=== PATIENT | male | born 1950 | race African-American/Black ===

== ENCOUNTER 2017-09-28 17:19 | Emergency (ER) | payer MEDICARE, OTHER ==
--- NOTE | 2017-09-28 19:24 | RAD ---
HISTORY: Right hip and leg pain COMPARISONS: None VIEWS: 3, Frontal view of the pelvis with frontal and frog-leg views of the right hip FINDINGS: BONE DENSITY: Normal. BONES: There is no displaced fracture. JOINTS: There is advanced osteoarthritis of the hips bilaterally ALIGNMENT: There is no dislocation. SOFT TISSUES: Unremarkable. OTHER FINDINGS: None. IMPRESSION: OSTEOARTHRITIS. NO ACUTE OSSEOUS INJURY. IF SYMPTOMS PERSIST, RECOMMEND REPEAT IMAGING.
[2017-09-28 20:31] LABS: Hematocrit 39 % (42-52); Hemoglobin 13.1 g/dl (14.0-18.0); Mean Corpuscular HGB Conc 34 g/dl (31-36); Mean Corpuscular Hemoglobin 30 pg (27-31); Mean Corpuscular Volume 89 fL (80-94); Mean Platelet Volume 9 um3 (7.4-10.4); Red Blood Count 4.33 10^6/ul (4.0-5.4); Red Cell Distribution Width 15 % (10.5-15); White Blood Count 8.5 10^3/ul (3.5-10.8)
[2017-09-28 20:45] LABS: Albumin 4.1 g/dL (3.2-5.2); BUN/Creatinine Ratio 15.7 (8-20); C Reactive Protein 13.79 mg/L (< 5.00); Calcium 10.1 mg/dL (8.6-10.3); EGFR Non-African American 50.5 (>60); Magnesium 2.1 mg/dL (1.9-2.7); Potassium 4.4 mmol/L (3.5-5.0); Total Bilirubin 0.5 mg/dL (0.2-1.0); Total Protein 8.1 g/dL (6.4-8.9)
[2017-09-28 20:50] LABS: Urine Bacteria Absent (Absent); Urine Bilirubin Negative (Negative); Urine Glucose Negative (Negative); Urine Nitrite Negative (Negative)
[2017-09-28 21:22] LABS: TSH (Thyroid Stimulating Horm) 2.08 mcIU/mL (0.34-5.60)
--- NOTE | 2017-09-28 21:53 | ED ---
Tamanna Ann Thomas, scribed for José Miguel Charles MD on 09/28/17 at 1947 . Complex/Multi-Sys Presentation - HPI Summary HPI Summary: The pt is a 67 y/o M presenting to the ED c/o acute on chronic right hip pain. The pain is constant. The pain is aggravated by movement and is alleviated by nothing. PMHx includes hip dislocation in the 1960s and chronic right hip pain since then. At baseline, he becomes short of breath upon walking. Pt denies fevers, chills, abd pain, diarrhea, constipation, and bloody stool. The patient is alert, awake, and he is mildly confused. He is accompanied two family members , who in private request that he be given a mental health exam. They believe the patient is unsafe to return to live alone at home due to both physical safety and emotional reasons. - History Of Current Complaint Chief Complaint: EDExtremityLower Time Seen by Provider: 09/28/17 19:11 Hx Obtained From: Patient, Family/Liaison Engineer - two family members present Onset/Duration: Lasting Weeks - acute on chronic right hip pain, Still Present Timing: Constant Severity Currently: Moderate Location: Pain At: - Right hip Aggravating Factor(s): Movement. Alleviating Factor(s): None. Associated Signs And Symptoms: Positive: Other - R hip pain, SOB, confusion; NEGATIVE: fever, chills, abd pain, constipation, diarrhea - Allergies/Home Medications Allergies/Adverse Reactions: Allergies Allergy/AdvReac Type Severity Reaction Status Date / Time No Known Allergies Allergy Verified 02/28/13 15:08 PMH/Surg Hx/FS Hx/Imm Hx Previously Healthy: No Endocrine/Hematology History: Reports: Hx Diabetes - pre-diabetic Cardiovascular History: Reports: Hx Angina - 1993, Hx Coronary Artery Disease, Hx Hypercholesterolemia, Hx Hypertension, Hx Myocardial Infarction - 1993 Denies: Hx Valvular Heart Disease Respiratory History: Denies: Hx Asthma, Hx Chronic Obstructive Pulmonary Disease (COPD) Infectious Disease History: No Infectious Disease History: Denies: Traveled Outside the [place] in Last 30 Days - Family History Known Family History: Positive: Other - When asked FHx, patient responds "nothing" - Social History Alcohol Use: Weekly Alcohol Amount: x1 month Hx Substance Use: No Substance Use Type: Reports: None Hx Tobacco Use: Yes Smoking Status (MU): Heavy Every Day Tobacco Smoker Review of Systems Negative: Fever, Chills Positive: Shortness Of Breath Negative: Abdominal Pain, Diarrhea, Other - NEGATIVE: constipation Positive: Other - R hip pain Neurological: Other - Confusion (mild) All Other Systems Reviewed And Are Negative: Yes Physical Exam - Summary Physical Exam Summary: General: well-appearing, no pain distress Skin: warm, color reflects adequate perfusion, dry Head: normal Eyes: EOMI, JOHAN ENT: normal Neck: supple, nontender Respiratory: CTA, breath sounds present Cardiovascular: RRR Abdomen: soft, nont ac Bowel: present Musculoskeletal: The right hip is externally rotate. There is good ROM in the left leg, but the right leg has decreased ROM to the knee and hip. Neurological: sensory/motor intact. He is awake, alert, and mildly confused. Psychological: He is depressed. Vital Signs On Initial Exam: Initial Vitals Temp Pulse Resp BP Pulse Ox 97.7 F 102 20 189/124 100 09/28/17 17:24 09/28/17 17:24 09/28/17 17:24 09/28/17 17:24 09/28/17 17:24 Diagnostics - Vital Signs Vital Signs Temp Pulse Resp BP Pulse Ox 09/28/17 17:24 97.7 F 102 20 189/124 100 - Laboratory Lab Results: Lab Results 09/28/17 09/28/17 09/28/17 Range/Units 20:20 20:20 20:20 WBC 8.5 (3.5-10.8) 10^3/ul RBC 4.33 (4.0-5.4) 10^6/ul Hgb 13.1 L (14.0-18.0) g/dl Hct 39 L (42-52) % MCV 89 (80-94) fL MCH 30 (27-31) pg MCHC 34 (31-36) g/dl RDW 15 (10.5-15) % Plt Count 241 (150-450) 10^3/ul MPV 9 (7.4-10.4) um3 Neut % (Auto) 64.6 (38-83) % Lymph % (Auto) 26.0 (25-47) % Hopkins % (Auto) 6.9 (1-9) % Eos % (Auto) 1.4 (0-6) % Baso % (Auto) 1.1 (0-2) % Absolute Neuts (auto) 5.5 (1.5-7.7) 10^3/ul Absolute Lymphs (auto) 2.2 (1.0-4.8) 10^3/ul Absolute Monos (auto) 0.6 (0-0.8) 10^3/ul Absolute Eos (auto) 0.1 (0-0.6) 10^3/ul Absolute Basos (auto) 0.1 (0-0.2) 10^3/ul Absolute Nucleated RBC 0 10^3/ul Nucleated RBC % 0 INR (Anticoag Therapy) 0.98 (0.89-1.11) APTT 26.5 (26.0-36.3) seconds Sodium 133 (133-145) mmol/L Potassium 4.4 (3.5-5.0) mmol/L Chloride 102 (101-111) mmol/L Carbon Dioxide 26 (22-32) mmol/L Anion Gap 5 (2-11) mmol/L BUN 22 (6-24) mg/dL Creatinine 1.40 H (0.67-1.17) mg/dL Est GFR ( Amer) 65.0 (>60) Est GFR (Non-Af Amer) 50.5 (>60) BUN/Creatinine Ratio 15.7 (8-20) Glucose 111 H (70-100) mg/dL Calcium 10.1 (8.6-10.3) mg/dL Magnesium 2.1 (1.9-2.7) mg/dL Total Bilirubin 0.50 (0.2-1.0) mg/dL AST 14 (13-39) U/L ALT 6 L (7-52) U/L Alkaline Phosphatase 107 H (34-104) U/L C-Reactive Protein 13.79 H (< 5.00) mg/L Total Protein 8.1 (6.4-8.9) g/dL Albumin 4.1 (3.2-5.2) g/dL Globulin 4.0 (2-4) g/dL Albumin/Globulin Ratio 1.0 (1-3) Lipase 18 (11.0-82.0) U/L TSH 2.08 (0.34-5.60) mcIU/mL Urine Color Urine Appearance Urine pH (5-9) Ur Specific [place] (1.010-1.030) Urine Protein (Negative) Urine Ketones (Negative) Urine Blood (Negative) Urine Nitrate (Negative) Urine Bilirubin (Negative) Urine Urobilinogen (Negative) Ur Leukocyte Esterase (Negative) Urine WBC (Auto) (Absent) Urine RBC (Auto) (Absent) Ur Squamous Epith Cells (Absent) Urine Bacteria (Absent) Hyaline Casts (Absent) Urine Glucose (Negative) Urine Ascorbic Acid (Negative) 09/28/17 Range/Units 20:37 WBC (3.5-10.8) 10^3/ul RBC (4.0-5.4) 10^6/ul Hgb (14.0-18.0) g/dl Hct (42-52) % MCV (80-94) fL MCH (27-31) pg MCHC (31-36) g/dl RDW (10.5-15) % Plt Count (150-450) 10^3/ul MPV (7.4-10.4) um3 Neut % (Auto) (38-83) % Lymph % (Auto) (25-47) % Hopkins % (Auto) (1-9) % Eos % (Auto) (0-6) % Baso % (Auto) (0-2) % Absolute Neuts (auto) (1.5-7.7) 10^3/ul Absolute Lymphs (auto) (1.0-4.8) 10^3/ul Absolute Monos (auto) (0-0.8) 10^3/ul Absolute Eos (auto) (0-0.6) 10^3/ul Absolute Basos (auto) (0-0.2) 10^3/ul Absolute Nucleated RBC 10^3/ul Nucleated RBC % INR (Anticoag Therapy) (0.89-1.11) APTT (26.0-36.3) seconds Sodium (133-145) mmol/L Potassium (3.5-5.0) mmol/L Chloride (101-111) mmol/L Carbon Dioxide (22-32) mmol/L Anion Gap (2-11) mmol/L BUN (6-24) mg/dL Creatinine (0.67-1.17) mg/dL Est GFR ( Amer) (>60) Est GFR (Non-Af Amer) (>60) BUN/Creatinine Ratio (8-20) Glucose (70-100) mg/dL Calcium (8.6-10.3) mg/dL Magnesium (1.9-2.7) mg/dL Total Bilirubin (0.2-1.0) mg/dL AST (13-39) U/L ALT (7-52) U/L Alkaline Phosphatase (34-104) U/L C-Reactive Protein (< 5.00) mg/L Total Protein (6.4-8.9) g/dL Albumin (3.2-5.2) g/dL Globulin (2-4) g/dL Albumin/Globulin Ratio (1-3) Lipase (11.0-82.0) U/L TSH (0.34-5.60) mcIU/mL Urine Color Yellow Urine Appearance Clear Urine pH 5.0 (5-9) Ur Specific [place] 1.014 (1.010-1.030) Urine Protein Negative (Negative) Urine Ketones Negative (Negative) Urine Blood Negative (Negative) Urine Nitrate Negative (Negative) Urine Bilirubin Negative (Negative) Urine Urobilinogen Negative (Negative) Ur Leukocyte Esterase Trace H (Negative) Urine WBC (Auto) Trace(0-5/hpf) (Absent) Urine RBC (Auto) Trace(0-2/hpf) (Absent) Ur Squamous Epith Cells Present H (Absent) Urine Bacteria Absent (Absent) Hyaline Casts Present H (Absent) Urine Glucose Negative (Negative) Urine Ascorbic Acid * H (Negative) Result Diagrams: 09/28/17 20:20 09/28/17 20:20 Lab Statement: Any lab studies that have been ordered have been reviewed, and results considered in the medical decision making process. - Radiology Hip XR Xray Interpretation: No Acute Changes - OSTEOARTHRITIS. NO ACUTE OSSEOUS INJURY. IF SYMPTOMS PERSIST, RECOMMEND REPEAT IMAGING. ED physician has reviewed this report and agrees. Radiology Interpretation Completed By: Radiologist Complex Multi-Symp Course/Dx Course Of Treatment: Medications reviewed. BP noted and advised to follow up with PCP. PATIENT ALERT AND ORIENTED IN ED. HE HAS MILD MEMORY CONFUSION BUT, HE APPEARS ABLE TO MAKE HIS OWN DECISIONS. HE DECLINES ADMISSION OR MHE. HE EXPRESSES DESIRE FOR HELP WITH HOUSING, MEDICAL VISITS AND DEPRESSION. DENIES SI/HI. DAUGHTER WAS IN THE ROOM DURING THE VISIT. SOCIAL WORK CONSULTATION ORDERED. - Diagnoses Provider Diagnoses: Hip arthritis, Hypertension, Depression Discharge - Discharge Plan Condition: Stable Disposition: HOME Patient Education Materials: Osteoarthritis (ED), Depression (ED), Hip Pain (ED ), Hypertension (ED) Referrals: [facility] [place] [facility] [Outside] Additional Instructions: FOLLOW UP WITH YOUR PRIMARY CARE DOCTOR. A SOCIAL WORK CONSULTATION HAS BEEN REQUESTED TO HELP YOU FINDING HOUSING, MEDICAL AND MENTAL HEALTH RESOURCES. RETURN TO THE EMERGENCY DEPARTMENT FOR ANY WORSENING OF YOUR CONDITION; WEAKNESS , CONFUSION, DEPRESSION OR QUESTIONS OR CONCERNS. The documentation as recorded by the Tamanna farrar Thomas accurately reflects the service I personally performed and the decisions made by me, José Miguel Charles MD.
[2017-09-28 22:29] VITALS: BP 136/97
== END 2017-09-28 22:07 | disposition home or self-care (01) ==
LOC: ED 17:19
DX: M16.11 Unilateral primary osteoarthritis, right hip (principal); F32.9 Major depressive disorder, single episode, unspecified; R06.02 Shortness of breath; R41.0 Disorientation, unspecified; R73.03 Prediabetes; I25.119 Atherosclerotic heart disease of native coronary artery with unspecified angina pectoris; I10 Essential (primary) hypertension; E78.00 Pure hypercholesterolemia, unspecified; I25.2 Old myocardial infarction; F17.210 Nicotine dependence, cigarettes, uncomplicated
CPT/HCPCS: 36415; 80053; 81003; 81015; 83690; 83735; 84443; 85025; 85610; 85730; 86140; 87086; 99283

== ENCOUNTER 2017-12-07 18:41 | Inpatient (IN) | payer MEDICARE ==
[2017-12-07] MEDS ORDERED: NS 0.9% 1000 ML* 1,000 ML IV ONE (19:30)
[2017-12-07 20:06] LABS: ABS Basophils 0.1 10^3/ul (0-0.2); ABS Eosinophils 0.1 10^3/ul (0-0.6); ABS Lymphocytes 2.1 10^3/ul (1.0-4.8); ABS Monocytes 0.5 10^3/ul (0-0.8); ABS Nucleated RBC 0 10^3/ul; Eosinophil % 1.5 % (0-6); Hematocrit 38 % (42-52); Lymphocyte % 26.7 % (25-47); Mean Corpuscular HGB Conc 34 g/dl (31-36); Mean Corpuscular Hemoglobin 30 pg (27-31); Mean Corpuscular Volume 88 fL (80-94); Mean Platelet Volume 9 um3 (7.4-10.4); Nucleated Red Blood Cells % 0.1; Platelet Count 249 10^3/ul (150-450); Red Blood Count 4.32 10^6/ul (4.0-5.4); Red Cell Distribution Width 15 % (10.5-15); White Blood Count 7.9 10^3/ul (3.5-10.8)
--- NOTE | 2017-12-07 20:19 | RAD ---
HISTORY: Weakness COMPARISONS: None VIEWS: 1: frontal portable view of the chest at 8:06 PM FINDINGS: LINES AND TUBES: None. CARDIOMEDIASTINAL SILHOUETTE: The aorta is tortuous. The cardiomediastinal silhouette is otherwise normal for portable technique. PLEURA: The costophrenic angles are sharp. No pleural abnormalities are noted. LUNG PARENCHYMA: The lungs are clear. ABDOMEN: The upper abdomen is clear. There is no subphrenic gas. BONES AND SOFT TISSUES: No bone or soft tissue abnormalities are noted. IMPRESSION: NO ACTIVE CARDIOPULMONARY DISEASE.
[2017-12-07 20:21] LABS: EGFR Non-African American 53.2 (>60)
[2017-12-07 20:35] LABS: Urine Appearance Clear; Urine Blood Negative (Negative); Urine Color Yellow; Urine Ketones Negative (Negative); Urine Protein Negative (Negative); Urine Specific Gravity 1.013 (1.010-1.030); Urine Urobilinogen Negative (Negative)
--- NOTE | 2017-12-07 20:39 | RAD ---
HISTORY: Right hip pain, right leg weakness COMPARISONS: None TECHNIQUE: Multiple contiguous axial CT images are obtained of the pelvis, with coronal and sagittal multiplanar reconstructions, without intravenous contrast administration. FINDINGS: BONE DENSITY: There is diffuse osteopenia. BONES: There is no displaced fracture. JOINTS: There is advanced osteoarthritis of the hips bilaterally. MUSCULATURE: Unremarkable ALIGNMENT: There is no dislocation. SOFT TISSUES: Unremarkable. OTHER FINDINGS: None. IMPRESSION: 1. OSTEOPENIA. 2. OSTEOARTHRITIS. 3. NO ACUTE OSSEOUS INJURY. THE DEGREE OF OSTEOPENIA MAY MAKE A NONDISPLACED FRACTURE RADIOGRAPH FOR OCCULT. IF SYMPTOMS PERSIST, RECOMMEND REPEAT IMAGING.
[2017-12-07] MEDS ORDERED: traMADol TAB* 50 MG PO ONE (20:41)
--- NOTE | 2017-12-07 20:41 | RAD ---
HISTORY: Right hip pain, right leg weakness COMPARISONS: None TECHNIQUE: Multiple contiguous axial CT scans were obtained of the lumbar spine without intravenous contrast, with coronal and sagittal multiplanar reformations. FINDINGS: SPINAL CANAL: Evaluation of the central canal is limited on CT technique; however, there is no obvious canalicular mass or epidural hemorrhage. ALIGNMENT: The alignment is normal. VERTEBRAL BODIES: The vertebral bodies are preserved in height. There is diffuse osteopenia.. There is mild anterolateral marginal osteophyte formation. JOINTS: There is facet osteoarthritic change along the lower lumbar spine. MUSCULATURE: Unremarkable INTERVERTEBRAL DISCS: There is diffuse loss of intervertebral disc height throughout the spine. AXIAL IMAGES: On axial images, there is no osseous neural foraminal area or central canal stenosis. There is mild disc bulging at L4-L5 and L5-S1. SOFT TISSUES: The visualized soft tissues of the abdomen are unremarkable. OTHER: None IMPRESSION: MILD DEGENERATIVE DISC DISEASE AND OSTEOPOROSIS. OSTEOPENIA. NO SIGNIFICANT OSSEOUS NEURAL FORAMINAL NARROWING OR CENTRAL CANAL STENOSIS.
[2017-12-08] MEDS ORDERED: oxyCODONE TAB* 5 MG TAB PO PRN (04:10)
[2017-12-08] MEDS ORDERED: CMCS:Melatonin (NF) 3 MG TAB PO PRN (04:10)
[2017-12-08] MEDS ORDERED: Acetaminophen TAB* 325 MG PO PRN (04:10)
[2017-12-08] MEDS ORDERED: hydrALAZINE IV* 20 MG/ML VIAL IV SLOW PU ONE (05:02)
[2017-12-08] MEDS: Heparin VIAL(*) 5000 UNITS/ML VIAL (FIVE THOUSAND) SUBCUT SCH ×2 (05:53→12:26)
[2017-12-08] MEDS ORDERED: Omeprazole CAP* 20 MG PO SCH (06:00)
[2017-12-08 06:51] LABS: ABS Basophils 0.1 10^3/ul (0-0.2); ABS Eosinophils 0.2 10^3/ul (0-0.6); ABS Lymphocytes 2.3 10^3/ul (1.0-4.8); ABS Monocytes 0.7 10^3/ul (0-0.8); ABS Neutrophils 4.6 10^3/ul (1.5-7.7); ABS Nucleated RBC 0 10^3/ul; Eosinophil % 2.4 % (0-6); Hematocrit 36 % (42-52); Lymphocyte % 29.3 % (25-47); Mean Corpuscular HGB Conc 34 g/dl (31-36); Mean Corpuscular Hemoglobin 30 pg (27-31); Mean Corpuscular Volume 87 fL (80-94); Mean Platelet Volume 9 um3 (7.4-10.4); Nucleated Red Blood Cells % 0.2; Platelet Count 234 10^3/ul (150-450); Red Blood Count 4.06 10^6/ul (4.0-5.4); Red Cell Distribution Width 14 % (10.5-15); White Blood Count 7.9 10^3/ul (3.5-10.8)
[2017-12-08 07:01] LABS: INR 0.98 (0.77-1.02)
[2017-12-08 07:06] LABS: EGFR Non-African American 73.7 (>60)
[2017-12-08] MEDS ORDERED: Docusate CAP* 100 MG PO SCH (09:00)
[2017-12-08] MEDS: traMADol TAB* 50 MG PO PRN ×2 (12:25→19:48)
--- NOTE | 2017-12-08 14:14 | PN ---
Subjective Date of Service: 12/08/17 Interval History: C/O pain R hip. He states he walked to the chair. Objective Active Medications: Acetaminophen (Tylenol Tab*) 650 mg PO Q6H PRN PRN Reason: FEVER/PAIN Acetaminophen (Tylenol Tab*) 650 mg PO TID EDUARDO Enoxaparin Sodium (Lovenox(*)) 40 mg SUBCUT Q24H EDUARDO Thiamine HCl (Vitamin B-1 Tab*) 100 mg PO DAILY EDUARDO Tramadol HCl (Ultram*) 50 mg PO Q6H PRN PRN Reason: PAIN Last Admin: 12/08/17 12:25 Dose: 50 mg Vital Signs - 8 hr 12/08/17 12/08/17 12/08/17 07:34 08:00 09:11 Temperature 97.5 F Pulse Rate 103 Respiratory 18 18 16 Rate Blood Pressure 150/73 (mmHg) O2 Sat by Pulse 97 Oximetry 12/08/17 12:25 Temperature Pulse Rate Respiratory 16 Rate Blood Pressure (mmHg) O2 Sat by Pulse Oximetry Oxygen Devices in Use Now: None Appearance: Alert, partly up in bed. He has a heat pack on his R groin. Neutral affect. Eyes: No Scleral Icterus Respiratory: Symmetrical Chest Expansion and Respiratory Effort, Clear to Auscultation, Clear to Percussion Skin: No Rash or Ulcers, No Nodules or Sclerosis, - Neurological: NL Sensation - He can state his age, his full name, name of his daughter. He cannot name the present year, [facility] or the pname of the president. Result Diagrams: 12/08/17 06:40 12/08/17 06:40 Assess/Plan/Problems-Billing Assessment: - Patient Problems (1) Dementia Current Visit: Yes Status: Acute Code(s): F03.90 - UNSPECIFIED DEMENTIA WITHOUT BEHAVIORAL DISTURBANCE SNOMED Code(s): 74903135 Comment: I suspect a significant contribution to his poor memory and cognition is his lifelong alcoholism, which only ended about a year ago. I spoke on the phone with his mary jane Sim who is now living with him. She states he thinks she is his sister (who many years ago) and gets other relatives confused. Start thiamine. Add-on B12, syphilis IgG. (2) Osteoarthritis of hips, bilateral Current Visit: Yes Status: Acute Code(s): M16.0 - BILATERAL PRIMARY OSTEOARTHRITIS OF HIP SNOMED Code(s): 798673375 Comment: Start APAP 650 mg tid. Pt refused PT, PT will try again.
[2017-12-08] MEDS: Enoxaparin(*) 40 MG/0.4 ML SYR SUBCUT SCH (14:58)
[2017-12-08] MEDS: Thiamine TAB* 100 MG TAB PO SCH (15:23)
[2017-12-08] MEDS: Acetaminophen TAB* 325 MG PO SCH ×2 (15:24→19:48)
[2017-12-08] MEDS: oxyCODONE TAB* 5 MG TAB PO PRN ×2 (18:04→23:57)
[2017-12-08] MEDS ORDERED: hydrALAZINE IV* 20 MG/ML VIAL ONE (23:52)
[2017-12-08] MEDS: hydrALAZINE IV* 20 MG/ML VIAL IV SLOW PU PRN (23:58)
[2017-12-09] MEDS: traMADol TAB* 50 MG PO PRN ×2 (02:44→21:35)
[2017-12-09] MEDS: oxyCODONE TAB* 5 MG TAB PO PRN ×4 (04:06→17:31)
[2017-12-09] MEDS: Acetaminophen TAB* 325 MG PO SCH ×3 (09:33→21:35)
[2017-12-09] MEDS: Thiamine TAB* 100 MG TAB PO SCH (09:34)
[2017-12-09] MEDS: Enoxaparin(*) 40 MG/0.4 ML SYR SUBCUT SCH (13:33)
--- NOTE | 2017-12-09 17:06 | PN ---
Progress Note - Progress Note Date of Service: 12/09/17 Note: New dx: vitamin B12 deficiency. B12 level 112 12/09/17. B12 1000 mcg IM weekly for 6 weeks, then monthly.
[2017-12-09] MEDS ORDERED: Cyanocobalamin INJ * 1,000 MCG/ML VIAL 1 ML VIAL IM SCH (18:00)
[2017-12-09] MEDS: oxyCODONE SR TAB(*) 10 MG TAB.SR PO SCH (21:35)
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
[2017-12-10] MEDS: oxyCODONE TAB* 5 MG TAB PO PRN ×2 (07:54→14:23)
[2017-12-10] MEDS: Acetaminophen TAB* 325 MG PO SCH ×3 (08:52→20:36)
[2017-12-10] MEDS: oxyCODONE SR TAB(*) 10 MG TAB.SR PO SCH ×2 (08:52→20:35)
[2017-12-10] MEDS: hydrALAZINE IV* 20 MG/ML VIAL IV SLOW PU PRN (08:53)
[2017-12-10] MEDS: Thiamine TAB* 100 MG TAB PO SCH (08:53)
[2017-12-10] MEDS: traMADol TAB* 50 MG PO PRN (10:41)
[2017-12-10] MEDS: Enoxaparin(*) 40 MG/0.4 ML SYR SUBCUT SCH (14:22)
[2017-12-11] MEDS: oxyCODONE TAB* 5 MG TAB PO PRN ×2 (00:27→12:39)
[2017-12-11] MEDS: traMADol TAB* 50 MG PO PRN ×2 (00:28→08:20)
[2017-12-11] MEDS: oxyCODONE SR TAB(*) 10 MG TAB.SR PO SCH (08:19)
[2017-12-11] MEDS: Acetaminophen TAB* 325 MG PO SCH ×2 (08:20→14:29)
[2017-12-11] MEDS: Thiamine TAB* 100 MG TAB PO SCH (08:21)
[2017-12-11] MEDS: hydrALAZINE IV* 20 MG/ML VIAL IV SLOW PU PRN (08:22)
[2017-12-11 12:45] VITALS: BP 148/90
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
[2017-12-11] MEDS: Enoxaparin(*) 40 MG/0.4 ML SYR SUBCUT SCH (14:30)
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
--- NOTE | 2017-12-11 23:24 | HP ---
HISTORY AND PHYSICAL: ADDENDUM: PHYSICAL EXAMINATION GENERAL: Thin, alert, no distress. HEENT: Pupils are equal, round, reactive to light. Extraocular movements are intact. Moist mucosa. Edentulous. NECK: No lymphadenopathy. LUNGS: Clear bilaterally. CHEST: Regular rate and rhythm, no murmurs. ABDOMEN: Soft, nontender, and nondistended. EXTREMITIES: No edema. Right lower extremity strength is limited by pain. Sensation is intact and distal pulses are 2+ bilaterally. [id number]/[facility] #: [id number] [facility]
[2017-12-12] MEDS ORDERED: Hydrochlorothiazide TAB* 25 MG PO SCH (09:00)
== END 2017-12-11 14:50 | DRG 556 ==
LOC: ED 18:41 → MED 12-08 04:08
PROVIDERS: ADMIT Hospitalist; ATTEND Internal Medicine
DX: M25.551 Pain in right hip (principal); F11.20 Opioid dependence, uncomplicated; F03.90 Unspecified dementia, unspecified severity, without behavioral disturbance, psychotic disturbance, mood disturbance, and anxiety; E53.8 Deficiency of other specified B group vitamins; E78.5 Hyperlipidemia, unspecified; W19.XXXA Unspecified fall, initial encounter; I25.10 Atherosclerotic heart disease of native coronary artery without angina pectoris; I10 Essential (primary) hypertension; R73.03 Prediabetes; F17.200 Nicotine dependence, unspecified, uncomplicated; G89.29 Other chronic pain; R40.2412 Glasgow coma scale score 13-15, at arrival to emergency department; M16.0 Bilateral primary osteoarthritis of hip; Y92.009 Unspecified place in unspecified non-institutional (private) residence as the place of occurrence of the external cause; I25.2 Old myocardial infarction; Z79.82 Long term (current) use of aspirin
CPT/HCPCS: 36415; 71045; 72131; 72192; 80053; 80320; 81003; 82140; 82565; 82607; 83605; 83690; 84443; 84484; 84520; 85025; 85610; 85730; 86140; 86592; 93005; 99285; A9270-GY; G0480; J0360; J1644; J1650; J3420

== ENCOUNTER 2018-02-23 02:35 | Inpatient (IN) | payer MEDICARE ==
[2018-02-23] MEDS ORDERED: NS 0.9% 1000 ML* 1,000 ML IV ONE ×2 (03:30→04:25)
[2018-02-23] MEDS ORDERED: Piperacillin/Tazobac ADVAN(*) 3.375 GM in NS 0.9% 100 ML* 100 ML IVPB ONE ×2 (03:33→07:46)
[2018-02-23] MEDS ORDERED: NS 0.9% 100 ML* 100 ML ONE (03:41)
[2018-02-23] MEDS ORDERED: TAZOBACTAM IVPB ONE ×2 (04:00)
[2018-02-23] MEDS ORDERED: PIPERACILLIN IVPB ONE ×2 (04:00)
[2018-02-23 04:05] LABS: ABS Basophils 0.1 10^3/ul (0-0.2); ABS Eosinophils 0 10^3/ul (0-0.6); ABS Lymphocytes 0.7 10^3/ul (1.0-4.8); ABS Monocytes 1.3 10^3/ul (0-0.8); ABS Nucleated RBC 0 10^3/ul; Eosinophil % 0.1 % (0-6); Hematocrit 29 % (42-52); Hemoglobin 9.6 g/dl (14.0-18.0); Lymphocyte % 3.7 % (25-47); Mean Corpuscular HGB Conc 33 g/dl (31-36); Mean Corpuscular Hemoglobin 27 pg (27-31); Mean Corpuscular Volume 82 fL (80-94); Mean Platelet Volume 8.7 um3 (7.4-10.4); Nucleated Red Blood Cells % 0; Platelet Count 432 10^3/ul (150-450); Red Blood Count 3.58 10^6/ul (4.0-5.4); Red Cell Distribution Width 15 % (10.5-15); White Blood Count 18.1 10^3/ul (3.5-10.8)
[2018-02-23 04:09] LABS: INR 1.26 (0.77-1.02)
[2018-02-23 04:21] LABS: EGFR Non-African American 41.2 (>60)
[2018-02-23] MEDS ORDERED: NS 0.9% 500 ML* 500 ML IV ONE (04:25)
[2018-02-23] MEDS ORDERED: Acetaminophen TAB* 325 MG PO PRN (07:50)
[2018-02-23] MEDS ORDERED: Vancomycin per Pharmacy* NOTE FOLLOW UP SCH (08:00)
[2018-02-23] MEDS ORDERED: Zosyn per Pharmacy* NOTE FOLLOW UP SCH (08:00)
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
[2018-02-23] MEDS ORDERED: Vancomycin(*) 1,250 MG in NS 0.9% 250 ML* 250 ML IVPB ONE (08:30)
[2018-02-23] MEDS ORDERED: Potassium Chloride LIQUID* 20 MEQ PACKET PO ONE (08:39)
[2018-02-23] MEDS: oxyCODONE SR TAB(*) 20 MG TAB.SR PO SCH ×2 (10:28→21:30)
[2018-02-23] MEDS: Senna TAB PO SCH ×2 (10:37→21:28)
[2018-02-23] MEDS: Docusate CAP* 100 MG PO SCH ×2 (10:37→21:28)
[2018-02-23] MEDS: Thiamine TAB* 100 MG TAB PO SCH (10:37)
[2018-02-23] MEDS: Sertraline* 25 MG TAB PO SCH (10:37)
[2018-02-23] MEDS: Aspirin EC TAB* 81 MG TAB.EC PO SCH (10:37)
[2018-02-23] MEDS: Lactobacillus Acidophilu (GG)* 1 CAP CAP PO SCH ×2 (10:37→21:29)
[2018-02-23] MEDS: NS 0.9% 1000 ML* 1,000 ML IV SCH ×2 (10:42→22:37)
[2018-02-23] MEDS: Piperacillin/Tazobactam 13.5 GM IV 24 hour continuous infusion IVPB SCH ×2 (10:53)
--- NOTE | 2018-02-23 11:00 | CONSULT ---
Consult Consult: Surgical consult dictated. Impression/Plan: Right lateral hip decubitus ulcer, unable to stage due to necrotic fibrinous exudate and surrounding induration. Sepsis, continue IV Abx coverage per medicine. ID consult appreciated. Possible osteomylitis, await CT hip and femur Surgical debridement will be discussed with Dr. Bonner, questionable bedside vs OR debridement if medically stable.
[2018-02-23] MEDS: Polyethylene Glycol 3350* 17 GM PACKET PO SCH ×2 (11:11→21:28)
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
[2018-02-23] MEDS: oxyCODONE TAB* 5 MG TAB PO PRN ×2 (14:05→21:30)
[2018-02-23] MEDS: Heparin VIAL(*) 5000 UNITS/ML VIAL (FIVE THOUSAND) SUBCUT SCH ×2 (14:06→21:34)
[2018-02-23] MEDS ORDERED: Lidocaine 1% INJ* 10 MG/ML 30 ML SDV ONE (14:25)
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
--- NOTE | 2018-02-23 14:43 | RAD ---
INDICATION: Right lateral hip wound. Evaluate for abscess formation. COMPARISON: CT pelvis December 07, 2017 TECHNIQUE: Transverse and longitudinal scans of the soft tissues about the right hip were performed utilizing grayscale and color Doppler imaging. FINDINGS: The soft tissues are edematous but there is no localized fluid collection to suggest abscess near the area of wound in the right lateral. IMPRESSION: NO LOCALIZED FLUID COLLECTION TO SUGGEST ABSCESS.
--- NOTE | 2018-02-23 15:22 | RAD ---
INDICATION: Right hip pain with a large posterior thigh and buttock mass. The patient is unable to straighten his leg. COMPARISON: Right hip radiograph dated September 28, 2017 TECHNIQUE: 2 views of the right hip were obtained. FINDINGS: Severe degenerative changes of the right hip include joint space narrowing and marginal osteophyte formation. There is sclerotic change of the articulating services. The right hip appears to be abducted consistent with the report the patient cannot straighten the hip. There is subcutaneous hypodensity overlying the right greater trochanter indicating possible superficial infection. IMPRESSION: 1. Degenerative changes of the right hip similar in appearance to the previous x-ray. 2. Low-density change at the subcutaneous tissue overlying the greater trochanter indicates superficial soft tissue infection. Please correlate to physical examination. If the patient's symptoms persist follow-up imaging is recommended.
--- NOTE | 2018-02-23 17:30 | CONS ---
CONSULTATION REPORT: DATE OF CONSULT: 02/23/18 REFERRING PHYSICIAN: Dr. Barrera. CONSULTING SERVICE: Infectious Disease. REASON FOR CONSULT: Right hip wound. IMPRESSION: Chronic right lateral hip wound with underlying hip pain and fever. Concern for underlying chronic osteomyelitis. He cannot provide many of the details of his history which was obtained instead from review of the medical record. It is unclear how long the ulcer has been there, he thinks for years. Per the nursing notes from [facility], he has had increasing drainage from his wound. 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 Otherwise, does not have a whole lot to offer on the history of present illness. He is unable to straighten his right knee due to contractures and so has not been able to have a CT or MRI. RECOMMENDATIONS: 1. We will see what the ultrasound shows, continue Zosyn, stop vancomycin as the PCR of the wound was negative for MRSA. 2. X-ray of the hip if the ultrasound is unrevealing. HISTORY OF PRESENT ILLNESS: This is a 67-year-old man who lives at [facility] who presents with a right hip wound and fever to 38.2 last night. He was also having fevers at [facility]. He cannot provide the details of the history. Per the medical record, he came to hospital this morning at 3 a.m. and had a white count of 18,000. Found to have a right hip wound. Had a wound culture taken that showed gram-negative bacilli, gram-positive cocci, PCR negative for staph aureus. Been on vancomycin and Zosyn and apparently tolerating that well. He is currently having ultrasound of the right hip. PAST MEDICAL HISTORY: 1. Coronary artery disease and history of [place]. 2. Hypertension. 3. Hyperlipidemia. 4. Right hip pain. PAST SURGICAL HISTORY: Denies surgeries. MEDICATIONS: 1. Tylenol. 2. Aspirin. 3. Docusate. 4. Heparin subcutaneous injection. 5. Lactobacillus. 6. Mirtazapine. 7. Zosyn 13.5 g IV every 24 hours by continuous infusion. 8. Sertraline. 9. Vancomycin. 10. Senna. ALLERGIES: No known drug allergies. FAMILY HISTORY: Mother is alive in her 70s with no health problems. Father at 87 of unknown causes. SOCIAL HISTORY: Lives at [facility]. Nonsmoker. REVIEW OF SYSTEMS: A 14-point review of systems was negative; however, not certainly consistent. PHYSICAL EXAM: Vital Signs: Temperature 36.6, heart rate 90, respiratory rate 19, blood pressure 140/88, and oxygen saturation 96% on room air. General: He is awake, not in distress. Neurologic: He is oriented x2, follows commands, answers questions. HEENT: There is no thrush. Neck: There is no mass. Lymph nodes: There is no cervical, supra-clavicular, inguinal, axillary, or epitrochlear lymphadenopathy. Heart is regular rate and rhythm without murmurs , rubs, or gallops. Lungs: Clear to auscultation bilaterally. Abdomen: Soft , nontender, and nondistended. There are bowel sounds present. Skin: There is no rash or splinter hemorrhages. Musculoskeletal: There is a lateral right hip 5-cm open area with some underlying granulation and island of skin and fibrinous tissue in the middle of it. There is no surrounding erythema. There is some serous drainage. DIAGNOSTIC STUDIES/LAB DATA: White blood cell count 18, hemoglobin 9, platelets 432,00. Creatinine 1.6, CRP 200. Please see impressions and recommendations outlined above. Thanks for asking me to see Mr. Travis in consultation. [id number]/[facility] #: [id number] MAHENDRA
[2018-02-23] MEDS ORDERED: fentaNYL* 50 MCG/ML 2 ML VIAL (100 MCG VIAL) IV SLOW PU ONE (20:54)
[2018-02-23] MEDS: Mirtazapine TAB* 15 MG PO SCH (21:29)
[2018-02-24] MEDS ORDERED: Morphine INJ* 4 MG/ML 1 ML SYRINGE (NEW SYRINGE VERSION) IV ONE (01:58)
[2018-02-24] MEDS: oxyCODONE TAB* 5 MG TAB PO PRN ×3 (02:20→19:36)
[2018-02-24] MEDS: Heparin VIAL(*) 5000 UNITS/ML VIAL (FIVE THOUSAND) SUBCUT SCH ×3 (06:10→21:45)
[2018-02-24] MEDS: NS 0.9% 1000 ML* 1,000 ML IV SCH ×2 (06:31→14:41)
--- NOTE | 2018-02-24 07:24 | OP ---
CC: Dr. Nathaniel Bonner OPERATIVE REPORT: DATE OF OPERATION: 02/23/18 DATE OF : 50 SURGEON: Nathaniel Bonner MD. SOIL FIELD TECHNICIAN: None. ANESTHESIOLOGIST: None. PRE-OP DIAGNOSIS: Infected decubitus ulcer of right hip. POST-OP DIAGNOSIS: Infected decubitus ulcer of right hip. OPERATIVE PROCEDURE: Debridement of right hip decubitus ulcer. INDICATIONS: The patient is a 67-year-old male who is admitted to the hospital with signs of sepsis and a right hip decubitus ulcer, which has been draining pus and foul smelling, and we were then cons ulted for debridement. On examination, he is a slender black male. He appears somewhat frail, especially for age and he has leg contractures, very little soft tissue. On his right hip, there is a decubitus ulcer with an are a of eschar with soft bushy material underneath with foul-smelling purulent material forthcoming with light palpation of the area. After discussion with him and with his daughter, it was decided that d ebridement will be carried out. Therefore, alcohol prep was used around the edges and a field block of 20 mL of 1% plain lidocaine is carried out. The necrotic tissue is then debrided away. It goes t o a depth of about 2 cm and undermines posteriorly, inferiorly, and superiorly. The anterior aspect does not really undermine. The greatest area that it undermines is superiorly where it undermines by about 4 to 5 cm and that decreases gradually as one comes around towards the inferior aspect. After debriding the majority of the necrotic tissue, a sample of that is sent in a sterile container for t issue culture and gauze packing is placed into the cavity followed by a bulky dressing. He tolerated this well. There were no complications. No drains. ESTIMATED BLOOD LOSS: 10 mL. SPECIMEN: Tissue culture. [id number]/[facility] #: [id number]
--- NOTE | 2018-02-24 07:33 | PN ---
Subjective Date of Service: 02/24/18 Interval History: Pt is feeling ok. He states his pain in his R hip is ok currently. He is able to tell me it hurts significantly when moving. He is also able to tell me that he does not extend his legs and he does not walk. Objective Active Medications: Acetaminophen (Tylenol Tab*) 650 mg PO Q6H PRN PRN Reason: FEVER/PAIN Aspirin (Aspirin Ec Low Dose*) 81 mg PO DAILY [facility] Last Admin: 02/23/18 10:37 Dose: 81 mg Docusate Sodium (Colace Cap*) 100 mg PO BID [facility] Last Admin: 02/23/18 21:28 Dose: Not Given Heparin Sodium (Porcine) (Heparin Vial(*)) 5,000 units SUBCUT Q8HR [facility] Last Admin: 02/24/18 06:10 Dose: 5,000 units Sodium Chloride (Ns 0.9% 1000 Ml*) 1,000 mls @ 125 mls/hr IV PER RATE [facility] Last Admin: 02/24/18 06:31 Dose: 125 mls/hr Piperacillin Sod/Tazobactam (Sod 13.5 gm/ Sodium Chloride) 500 mls @ 20.833 mls /hr IVPB Q24H [facility] Last Admin: 02/23/18 10:53 Dose: 20.833 mls/hr Lactobacillus Rhamnosus (Culturelle*) 1 cap PO BID [facility] Last Admin: 02/23/18 21:29 Dose: 1 cap Mirtazapine (Remeron Tab*) 7.5 mg PO BEDTIME [facility] Last Admin: 02/23/18 21:29 Dose: 7.5 mg Morphine Sulfate (Morphine Inj (Syringe)*) 4 mg IV Q4H PRN PRN Reason: SEVERE PAIN Oxycodone HCl (Oxycontin(*)) 20 mg PO Q12HR [facility] Last Admin: 02/23/18 21:30 Dose: 20 mg Oxycodone HCl (Roxycodone Tab*) 10 mg PO Q4H PRN PRN Reason: PAIN Last Admin: 02/24/18 02:20 Dose: 10 mg Pharmacy Consult (Zosyn Per Pharmacy*) 1 note FOLLOW UP .ZOSYN PER PHARMACY [facility] Polyethylene Glycol/Electrolytes (Miralax*) 17 gm PO BID [facility] Last Admin: 02/23/18 21:28 Dose: Not Given Senna (Senokot Tab*) 2 tab PO BID [facility] Last Admin: 02/23/18 21:28 Dose: Not Given Sertraline HCl (Zoloft*) 25 mg PO DAILY [facility] Last Admin: 02/23/18 10:37 Dose: 25 mg Thiamine HCl (Vitamin B-1 Tab*) 100 mg PO DAILY [facility] Last Admin: 02/23/18 10:37 Dose: 100 mg Vital Signs - 8 hr 02/24/18 02/24/18 02/24/18 00:00 00:10 00:11 Temperature 98.8 F Pulse Rate 98 99 100 Respiratory 18 16 18 Rate Blood Pressure 179/108 (mmHg) O2 Sat by Pulse 96 97 97 Oximetry 02/24/18 02/24/18 02/24/18 00:47 01:00 01:23 Temperature Pulse Rate 100 106 96 Respiratory 19 38 20 Rate Blood Pressure 155/76 189/91 164/82 (mmHg) O2 Sat by Pulse 97 95 96 Oximetry 02/24/18 02/24/18 02/24/18 02:00 03:00 03:01 Temperature Pulse Rate 96 94 96 Respiratory 30 15 18 Rate Blood Pressure 143/83 161/78 (mmHg) O2 Sat by Pulse 95 96 98 Oximetry 02/24/18 02/24/18 02/24/18 03:04 04:00 04:01 Temperature 98.9 F Pulse Rate 100 103 Respiratory 19 23 Rate Blood Pressure 170/92 (mmHg) O2 Sat by Pulse 96 96 Oximetry 02/24/18 02/24/18 02/24/18 04:46 05:00 05:40 Temperature Pulse Rate 106 99 104 Respiratory 39 19 25 Rate Blood Pressure 169/88 156/83 181/88 (mmHg) O2 Sat by Pulse 94 96 98 Oximetry 02/24/18 02/24/18 02/24/18 05:41 05:42 06:00 Temperature Pulse Rate 103 99 94 Respiratory 22 32 20 Rate Blood Pressure 176/86 161/88 143/85 (mmHg) O2 Sat by Pulse 97 98 97 Oximetry 02/24/18 02/24/18 02/24/18 06:01 06:12 06:30 Temperature Pulse Rate 100 96 Respiratory 30 20 34 Rate Blood Pressure 150/78 (mmHg) O2 Sat by Pulse 99 98 Oximetry 02/24/18 02/24/18 07:00 07:01 Temperature Pulse Rate 101 101 Respiratory 21 21 Rate Blood Pressure 160/73 (mmHg) O2 Sat by Pulse 100 99 Oximetry Oxygen Devices in Use Now: None Appearance: Thin middle aged male lying in bed, awake, NAD Eyes: No Scleral Icterus Ears/Nose/Mouth/Throat: Mucous Membranes Moist Respiratory: Symmetrical Chest Expansion and Respiratory Effort, Clear to Auscultation Cardiovascular: NL Sounds; No Murmurs; No JVD, No Edema, - - mildly tachycardic but regular Abdominal: NL Sounds; No Tenderness; No Distention Extremities: No Clubbing, Cyanosis Skin: - - large packed decubitus ulcer overlying R lateral hip, copious purulent drainage Neurological: - - pt much more alert today, able to tell me he is at the hospital in [facility] Result Diagrams: 02/23/18 03:10 02/23/18 03:10 Additional Lab and Data: Lab Results 02/23/18 02/23/18 02/23/18 Range/Units 03:10 03:10 03:10 WBC 18.1 H (3.5-10.8) 10^3/ul RBC 3.58 L (4.0-5.4) 10^6/ul Hgb 9.6 L (14.0-18.0) g/dl Hct 29 L (42-52) % MCV 82 (80-94) fL MCH 27 (27-31) pg MCHC 33 (31-36) g/dl RDW 15 (10.5-15) % Plt Count 432 (150-450) 10^3/ul MPV 8.7 (7.4-10.4) um3 Neut % (Auto) 88.6 H (38-83) % Lymph % (Auto) 3.7 L (25-47) % [place] % (Auto) 7.3 H (0-7) % Eos % (Auto) 0.1 (0-6) % Baso % (Auto) 0.3 (0-2) % Absolute Neuts (auto) 16.0 H (1.5-7.7) 10^3/ul Absolute Lymphs (auto) 0.7 L (1.0-4.8) 10^3/ul Absolute Monos (auto) 1.3 H (0-0.8) 10^3/ul Absolute Eos (auto) 0 (0-0.6) 10^3/ul Absolute Basos (auto) 0.1 (0-0.2) 10^3/ul Absolute Nucleated RBC 0 10^3/ul Nucleated RBC % 0 INR (Anticoag Therapy) (0.77-1.02) Sodium 137 (133-145) mmol/L Potassium 3.3 L (3.5-5.0) mmol/L Chloride 101 (101-111) mmol/L Carbon Dioxide 25 (22-32) mmol/L Anion Gap 11 (2-11) mmol/L BUN 61 H (6-24) mg/dL Creatinine 1.67 H (0.67-1.17) mg/dL Est GFR ( Amer) 53.0 (>60) Est GFR (Non-Af Amer) 41.2 (>60) BUN/Creatinine Ratio 36.5 H (8-20) Glucose 133 H (70-100) mg/dL Lactic Acid 1.0 (0.5-2.0) mmol/L Calcium 10.1 (8.6-10.3) mg/dL Magnesium 2.1 (1.9-2.7) mg/dL Total Bilirubin 0.40 (0.2-1.0) mg/dL AST 34 (13-39) U/L ALT 23 (7-52) U/L Alkaline Phosphatase 84 (34-104) U/L Troponin I 0.04 H* (<0.04) ng/mL Total Protein 7.8 (6.4-8.9) g/dL Albumin 2.9 L (3.2-5.2) g/dL Globulin 4.9 H (2-4) g/dL Albumin/Globulin Ratio 0.6 L (1-3) 02/23/18 02/23/18 Range/Units 03:10 06:40 WBC (3.5-10.8) 10^3/ul RBC (4.0-5.4) 10^6/ul Hgb (14.0-18.0) g/dl Hct (42-52) % MCV (80-94) fL MCH (27-31) pg MCHC (31-36) g/dl RDW (10.5-15) % Plt Count (150-450) 10^3/ul MPV (7.4-10.4) um3 Neut % (Auto) (38-83) % Lymph % (Auto) (25-47) % [place] % (Auto) (0-7) % Eos % (Auto) (0-6) % Baso % (Auto) (0-2) % Absolute Neuts (auto) (1.5-7.7) 10^3/ul Absolute Lymphs (auto) (1.0-4.8) 10^3/ul Absolute Monos (auto) (0-0.8) 10^3/ul Absolute Eos (auto) (0-0.6) 10^3/ul Absolute Basos (auto) (0-0.2) 10^3/ul Absolute Nucleated RBC 10^3/ul Nucleated RBC % INR (Anticoag Therapy) 1.26 H (0.77-1.02) Sodium (133-145) mmol/L Potassium (3.5-5.0) mmol/L Chloride (101-111) mmol/L Carbon Dioxide (22-32) mmol/L Anion Gap (2-11) mmol/L BUN (6-24) mg/dL Creatinine (0.67-1.17) mg/dL Est GFR ( Amer) (>60) Est GFR (Non-Af Amer) (>60) BUN/Creatinine Ratio (8-20) Glucose (70-100) mg/dL Lactic Acid (0.5-2.0) mmol/L Calcium (8.6-10.3) mg/dL Magnesium (1.9-2.7) mg/dL Total Bilirubin (0.2-1.0) mg/dL AST (13-39) U/L ALT (7-52) U/L Alkaline Phosphatase (34-104) U/L Troponin I 0.03 (<0.04) ng/mL Total Protein (6.4-8.9) g/dL Albumin (3.2-5.2) g/dL Globulin (2-4) g/dL Albumin/Globulin Ratio (1-3) Microbiology and Other Data: Microbiology 02/23/18 14:45 Gram Stain - Final Hip Right 02/23/18 10:55 Nasal Screen MRSA (PCR)([facility]) - Final Nasal Mrsa Not Detected 02/23/18 10:00 Skin and Soft Tissue MRSA/MSSA (PCR - Final Hip Right Mrsa Negative S.aureus Negative Gram Stain - Final Assess/Plan/Problems-Billing Mr Travis is a 67 yo M who has a h/o CAD, HTN, HLD, chronic hip/leg pain who presented to the ER with fever and increased drainage from a R lateral hip decubitus ulcer and was found to be severely septic secondary to the infected decubitus. - Patient Problems (1) Severe sepsis Current Visit: Yes Status: Acute Code(s): A41.9 - SEPSIS, UNSPECIFIED ORGANISM; R65.20 - SEVERE SEPSIS WITHOUT SEPTIC SHOCK SNOMED Code(s): 54678923 Comment: On admission the patient was severely septic based on tachycardia, leukocytosis, fever and end organ dysfunction with an elevated troponin. The severe sepsis is secondary to an infected decubitus ulcer. His BP was soft yesterday and now improved. Will continue IVF hydration as he remains tachycardic. Labs for today are pending. (2) Decubitus ulcer, unstageable with infection Current Visit: Yes Status: Acute Code(s): L89.95 - PRESSURE ULCER OF UNSPECIFIED SITE, UNSTAGEABLE; L08.9 - LOCAL INFECTION OF THE SKIN AND SUBCUTANEOUS TISSUE, UNSP SNOMED Code(s): 7711031 Comment: THe patient had an unstageable pressure ulcer overlying the R lateral hip. There was eschar covering most of the wound. He is now status post debridement with Dr Bonner as there was copious purulent drainage from the wound. He likely has underlying chronic osteomyelitis. Will continue zosyn for now. Await culture results. Appreciate both ID and surgery evaluations. (3) Diarrhea Current Visit: Yes Status: Acute Code(s): R19.7 - DIARRHEA, UNSPECIFIED SNOMED Code(s): 25772509 Comment: The patient had a flexiseal placed last night due to frequent loose BMs. ? secondary to aggressive bowel regimen he was on at [facility]. Monitor for now. (4) HTN (hypertension) Current Visit: Yes Status: Acute Code(s): I10 - ESSENTIAL (PRIMARY) HYPERTENSION SNOMED Code(s): 71924967 Comment: BP is now moderately elevated. HCTZ was placed on hold yesterday given his low BP. Will continue to hold for now and monitor. (5) HLD (hyperlipidemia) Current Visit: Yes Status: Acute Code(s): E78.5 - HYPERLIPIDEMIA, UNSPECIFIED SNOMED Code(s): 80419973 Comment: He is not on any lipid lowering medications. (6) DVT prophylaxis Current Visit: Yes Status: Acute Code(s): KZA5814 - SNOMED Code(s): 505693586 Comment: SQ heparin (7) DNR (do not resuscitate) Current Visit: Yes Status: Acute
[2018-02-24] MEDS: oxyCODONE SR TAB(*) 20 MG TAB.SR PO SCH ×2 (07:45→21:43)
[2018-02-24] MEDS: Sertraline* 25 MG TAB PO SCH (08:34)
[2018-02-24] MEDS: Lactobacillus Acidophilu (GG)* 1 CAP CAP PO SCH ×2 (08:34→21:43)
[2018-02-24] MEDS: Morphine INJ* 4 MG/ML 1 ML SYRINGE (NEW SYRINGE VERSION) IV PRN ×2 (08:34→12:28)
[2018-02-24] MEDS: Thiamine TAB* 100 MG TAB PO SCH (08:34)
[2018-02-24] MEDS: Aspirin EC TAB* 81 MG TAB.EC PO SCH (08:34)
[2018-02-24 09:11] LABS: Hematocrit 25 % (42-52); Hemoglobin 8.1 g/dl (14.0-18.0); Mean Corpuscular HGB Conc 32 g/dl (31-36); Mean Corpuscular Hemoglobin 27 pg (27-31); Mean Corpuscular Volume 83 fL (80-94); Mean Platelet Volume 8.8 um3 (7.4-10.4); Platelet Count 368 10^3/ul (150-450); Red Blood Count 3.01 10^6/ul (4.0-5.4); Red Cell Distribution Width 15 % (10.5-15)
[2018-02-24 09:12] LABS: ABS Basophils 0.1 10^3/ul (0-0.2); ABS Eosinophils 0.2 10^3/ul (0-0.6); ABS Lymphocytes 1.1 10^3/ul (1.0-4.8); ABS Neutrophils 10.6 10^3/ul (1.5-7.7); ABS Nucleated RBC 0 10^3/ul; Eosinophil % 1.2 % (0-6); Lymphocyte % 8.8 % (25-47); Nucleated Red Blood Cells % 0
[2018-02-24 09:13] LABS: EGFR Non-African American 70.5 (>60)
--- NOTE | 2018-02-24 09:52 | PN ---
Progress Note - Progress Note Date of Service: 02/24/18 SOAP: Subjective: Care from yesterday reviewed with Dr. Bonner He is more alert and awake today, complaining of right hip pain. No pressors and he has been hemodynamically stable Objective: Temp Pulse Resp BP Pulse Ox 98.8 F 101 27 160/73 99 02/24/18 08:00 02/24/18 07:01 02/24/18 08:34 02/24/18 07:01 02/24/18 07:01 Right hip with open ulcer about 8 cms by 8 cms. Significant undermining superiorly and medially. Non-viable muscle and tissue overlying the trochanter. No odor. Cultures noted. Laboratory Last Values WBC 13.0 10^3/ul (3.5-10.8) H 02/24/18 08:04 RBC 3.01 10^6/ul (4.0-5.4) L 02/24/18 08:04 Hgb 8.1 g/dl (14.0-18.0) L 02/24/18 08:04 Hct 25 % (42-52) L 02/24/18 08:04 MCV 83 fL (80-94) 02/24/18 08:04 MCH 27 pg (27-31) 02/24/18 08:04 MCHC 32 g/dl (31-36) 02/24/18 08:04 RDW 15 % (10.5-15) 02/24/18 08:04 Plt Count 368 10^3/ul (150-450) 02/24/18 08:04 MPV 8.8 um3 (7.4-10.4) 02/24/18 08:04 Neut % (Auto) 81.6 % (38-83) 02/24/18 08:04 Lymph % (Auto) 8.8 % (25-47) L 02/24/18 08:04 [place] % (Auto) 7.9 % (0-7) H 02/24/18 08:04 Eos % (Auto) 1.2 % (0-6) 02/24/18 08:04 Baso % (Auto) 0.5 % (0-2) 02/24/18 08:04 Absolute Neuts (auto) 10.6 10^3/ul (1.5-7.7) H 02/24/18 08:04 Absolute Lymphs (auto) 1.1 10^3/ul (1.0-4.8) 02/24/18 08:04 Absolute Monos (auto) 1.0 10^3/ul (0-0.8) H 02/24/18 08:04 Absolute Eos (auto) 0.2 10^3/ul (0-0.6) 02/24/18 08:04 Absolute Basos (auto) 0.1 10^3/ul (0-0.2) 02/24/18 08:04 Absolute Nucleated RBC 0 10^3/ul 02/24/18 08:04 Nucleated RBC % 0 02/24/18 08:04 INR (Anticoag Therapy) 1.26 (0.77-1.02) H 02/23/18 03:10 Sodium 141 mmol/L (139-145) 02/24/18 08:04 Potassium TNP 02/24/18 08:04 Chloride 112 mmol/L (101-111) H 02/24/18 08:04 Carbon Dioxide 18 mmol/L (22-32) L 02/24/18 08:04 Anion Gap 11 mmol/L (2-11) 02/24/18 08:04 BUN 33 mg/dL (6-24) H 02/24/18 08:04 Creatinine 1.05 mg/dL (0.67-1.17) 02/24/18 08:04 Est GFR ( Amer) 90.6 (>60) 02/24/18 08:04 Est GFR (Non-Af Amer) 70.5 (>60) 02/24/18 08:04 BUN/Creatinine Ratio 31.4 (8-20) H 02/24/18 08:04 Glucose 72 mg/dL (70-100) 02/24/18 08:04 Lactic Acid 1.0 mmol/L (0.5-2.0) 02/23/18 03:10 Calcium 8.3 mg/dL (8.6-10.3) L 02/24/18 08:04 Magnesium 2.1 mg/dL (1.9-2.7) 02/23/18 03:10 Total Bilirubin 0.40 mg/dL (0.2-1.0) 02/23/18 03:10 AST 34 U/L (13-39) 02/23/18 03:10 ALT 23 U/L (7-52) 02/23/18 03:10 Alkaline Phosphatase 84 U/L (34-104) 02/23/18 03:10 Troponin I 0.04 ng/mL (<0.04) H* 02/23/18 09:35 C-Reactive Protein 204.60 mg/L (< 5.00) H 02/23/18 03:10 Total Protein 7.8 g/dL (6.4-8.9) 02/23/18 03:10 Albumin 2.9 g/dL (3.2-5.2) L 02/23/18 03:10 Globulin 4.9 g/dL (2-4) H 02/23/18 03:10 Albumin/Globulin Ratio 0.6 (1-3) L 02/23/18 03:10 Procalcitonin 0.9 ng/mL (<0.6) H 02/23/18 03:10 Assessment: Stage 4 right hip pressure ulcer I feel this requires further bedside debridement to rule out deeper abscess, infection overlying the trochanter Debridement discussed with patient-he gives his own consent and risks of, but not limited to, of bleeding, infection, pain and further surgical intervention all explained. Plan: Right hip ulcer debrided at bedside-please see separate dictated note Continue IV abx Will need further serial debridement-possibly in OR Ulcer not ready for VAC at this point.
[2018-02-24] MEDS: Piperacillin/Tazobactam 13.5 GM IV 24 hour continuous infusion IVPB SCH ×2 (10:10)
--- NOTE | 2018-02-24 21:23 | OP ---
DATE OF OPERATION: 02/24/18 - ROOM #406 DATE OF : 50. SURGEON: Duncan Zamora MD. SIGNALS INTELLIGENCE ANALYSIS MANAGER: None. ANESTHESIA: None. PRE-OP DIAGNOSIS: Pressure decubitus ulcer of the right hip. POST-OP DIAGNOSES: Pressure decubitus ulcer of the right hip. OPERATIVE PROCEDURE: Debridement of right hip pressure decubitus ulcer. BRIEF HISTORY: Mr. Travis is a 67-year-old gentleman admitted to the hospital yesterday with signs of sepsis and a right decubitus ulcer, which was initially debrided yesterday of eschar and pus was drained and subcutaneous tissue was debrided. His sepsis has improved. On exam today, he has some further nonviable muscle overlying the greater trochanter. This nonviable muscle appears there is concern of possible further fluid collection and/or abscess deep to this and it is now decided to proceed with further debridement. Written informed consent was obtained from the patient. DESCRIPTION OF PROCEDURE: The patient was placed in the left lateral decubitus position. The previous dressing was removed. The open ulcer was evaluated. There was significant undermining mainly superiorly and medially of at least 8 to 9 cm. There was some purulent fluid, which was drained with digital pressure. This tissue in the undermining appeared to be viable. Overlying the greater trochanter, however, was what appeared to be nonviable and possibly necrotic muscle and this was sharply debrided with the scissors and pickups down to the fascia overlying the bone. There was no undrained pus but significant amount of turbid nonsmelling fluid. It was debrided as best possible to surrounding healthy bleeding muscle. Once this was complete, hemostasis was assured. The wound was packed lightly with a moist 4-inch Kerlix gauze and covered with ABD pads and a sterile dressing. The patient tolerated the procedure well.` [id number]/[facility] #: [id number] [facility] HOSPITALLibertad
[2018-02-24] MEDS: Mirtazapine TAB* 15 MG PO SCH (21:44)
[2018-02-24] MEDS: Morphine INJ* 2 MG/ML 1 ML CARPUJECT IV PRN (22:49)
[2018-02-25] MEDS: NS 0.9% 1000 ML* 1,000 ML IV SCH ×2 (02:30→10:02)
[2018-02-25] MEDS: Morphine INJ* 2 MG/ML 1 ML CARPUJECT IV PRN ×4 (05:17→23:00)
[2018-02-25] MEDS: Heparin VIAL(*) 5000 UNITS/ML VIAL (FIVE THOUSAND) SUBCUT SCH ×3 (05:20→22:01)
[2018-02-25 06:19] LABS: Urine Appearance Clear; Urine Blood Negative (Negative); Urine Color Yellow; Urine Ketones Trace (Negative); Urine Protein Negative (Negative); Urine Specific Gravity 1.011 (1.010-1.030); Urine Urobilinogen Negative (Negative)
[2018-02-25 06:46] LABS: ABS Basophils 0.1 10^3/ul (0-0.2); ABS Eosinophils 0.2 10^3/ul (0-0.6); ABS Lymphocytes 1.6 10^3/ul (1.0-4.8); ABS Neutrophils 9.6 10^3/ul (1.5-7.7); ABS Nucleated RBC 0 10^3/ul; Eosinophil % 1.3 % (0-6); Hematocrit 27 % (42-52); Hemoglobin 8.6 g/dl (14.0-18.0); Lymphocyte % 12.9 % (25-47); Mean Corpuscular HGB Conc 32 g/dl (31-36); Mean Corpuscular Hemoglobin 27 pg (27-31); Mean Corpuscular Volume 83 fL (80-94); Mean Platelet Volume 8.3 um3 (7.4-10.4); Nucleated Red Blood Cells % 0; Platelet Count 492 10^3/ul (150-450); Red Blood Count 3.21 10^6/ul (4.0-5.4); Red Cell Distribution Width 15 % (10.5-15); White Blood Count 12.5 10^3/ul (3.5-10.8)
[2018-02-25 07:01] LABS: EGFR Non-African American 74.5 (>60)
[2018-02-25] MEDS: Thiamine TAB* 100 MG TAB PO SCH (08:01)
[2018-02-25] MEDS: Aspirin EC TAB* 81 MG TAB.EC PO SCH (08:01)
[2018-02-25] MEDS: Sertraline* 25 MG TAB PO SCH (08:01)
[2018-02-25] MEDS: Lactobacillus Acidophilu (GG)* 1 CAP CAP PO SCH ×2 (08:01→20:43)
[2018-02-25] MEDS: oxyCODONE SR TAB(*) 20 MG TAB.SR PO SCH ×2 (08:01→20:43)
[2018-02-25] MEDS: oxyCODONE TAB* 5 MG TAB PO PRN ×2 (08:02→13:59)
[2018-02-25] MEDS: Piperacillin/Tazobactam 13.5 GM IV 24 hour continuous infusion IVPB SCH ×2 (09:59)
--- NOTE | 2018-02-25 11:22 | PN ---
Progress Note - Progress Note Date of Service: 02/25/18 SOAP: Subjective:Right hip decubitus ulcer,s/p debridement arousable and agrees to dressing change,premedicated [] Objective:afebrile,VSS;WBC 12.5;Wound C&S reviewed,neg for MRSA Right hip wound measures [id number],undermining medially and superior,copious purulent drainage,malodorous,exposed muscle,shaggy tissue;irrigated with NS, gently repacked with moistened NS kerlix and covered with 4x4's and ABD pad;was very painful for Mr Coleman despite premedication [] Assessment:unstageable decubitus ulcer Right hip [] Plan:cont IV abx local wound care,will follow []
--- NOTE | 2018-02-25 13:23 | PN ---
Subjective Date of Service: 02/25/18 Interval History: Pt states his pain generally is feeling a little better. Moving is still very difficult. He does not really want to eat. Nursing notes he frequently refuses to turn and position. Objective Active Medications: Acetaminophen (Tylenol Tab*) 650 mg PO Q6H PRN PRN Reason: FEVER/PAIN Aspirin (Aspirin Ec Low Dose*) 81 mg PO DAILY [facility] Last Admin: 02/25/18 08:01 Dose: 81 mg Heparin Sodium (Porcine) (Heparin Vial(*)) 5,000 units SUBCUT Q8HR [facility] Last Admin: 02/25/18 05:20 Dose: 5,000 units Sodium Chloride (Ns 0.9% 1000 Ml*) 1,000 mls @ 125 mls/hr IV PER RATE [facility] Last Admin: 02/25/18 10:02 Dose: 125 mls/hr Piperacillin Sod/Tazobactam (Sod 13.5 gm/ Sodium Chloride) 500 mls @ 20.833 mls /hr IVPB Q24H [facility] Last Admin: 02/25/18 09:59 Dose: 20.833 mls/hr Lactobacillus Rhamnosus (Culturelle*) 1 cap PO BID [facility] Last Admin: 02/25/18 08:01 Dose: 1 cap Mirtazapine (Remeron Tab*) 7.5 mg PO BEDTIME [facility] Last Admin: 02/24/18 21:44 Dose: 7.5 mg Morphine Sulfate (Morphine Inj (Syringe)*) 4 mg IV Q4H PRN PRN Reason: SEVERE PAIN Last Admin: 02/25/18 05:17 Dose: 4 mg Oxycodone HCl (Oxycontin(*)) 20 mg PO Q12HR [facility] Last Admin: 02/25/18 08:01 Dose: 20 mg Oxycodone HCl (Roxycodone Tab*) 10 mg PO Q4H PRN PRN Reason: PAIN Last Admin: 02/25/18 08:02 Dose: 10 mg Pharmacy Consult (Zosyn Per Pharmacy*) 1 note FOLLOW UP .ZOSYN PER PHARMACY [facility] Potassium Chloride (Klor-Con Liquid*) 40 meq PO ONCE ONE Stop: 02/26/18 12:11 Sertraline HCl (Zoloft*) 25 mg PO DAILY [facility] Last Admin: 02/25/18 08:01 Dose: 25 mg Thiamine HCl (Vitamin B-1 Tab*) 100 mg PO DAILY [facility] Last Admin: 02/25/18 08:01 Dose: 100 mg Vital Signs - 8 hr 02/25/18 02/25/18 02/25/18 06:27 07:30 08:01 Temperature 98.1 F Pulse Rate 100 Respiratory 18 16 16 Rate Blood Pressure 159/96 (mmHg) O2 Sat by Pulse 100 Oximetry 02/25/18 02/25/18 02/25/18 08:02 09:57 09:58 Temperature Pulse Rate Respiratory 16 20 20 Rate Blood Pressure (mmHg) O2 Sat by Pulse Oximetry Oxygen Devices in Use Now: None Appearance: Middle aged ill appearing male lying in bed, NAD Eyes: No Scleral Icterus Ears/Nose/Mouth/Throat: Mucous Membranes Moist Respiratory: Symmetrical Chest Expansion and Respiratory Effort, Clear to Auscultation Cardiovascular: NL Sounds; No Murmurs; No JVD, RRR, No Edema Abdominal: NL Sounds; No Tenderness; No Distention Extremities: No Clubbing, Cyanosis, - - B/L LE with contractures at the hip/ knees Skin: - - R lateral hip with 8x8 wound, packed with moistened gauze, very boggy tissue superior to the wound Neurological: Alert and Oriented x 3 Result Diagrams: 02/25/18 06:08 02/25/18 06:08 Additional Lab and Data: Lab Results 02/23/18 02/23/18 02/23/18 Range/Units 03:10 03:10 03:10 WBC 18.1 H (3.5-10.8) 10^3/ul RBC 3.58 L (4.0-5.4) 10^6/ul Hgb 9.6 L (14.0-18.0) g/dl Hct 29 L (42-52) % MCV 82 (80-94) fL MCH 27 (27-31) pg MCHC 33 (31-36) g/dl RDW 15 (10.5-15) % Plt Count 432 (150-450) 10^3/ul MPV 8.7 (7.4-10.4) um3 Neut % (Auto) 88.6 H (38-83) % Lymph % (Auto) 3.7 L (25-47) % [place] % (Auto) 7.3 H (0-7) % Eos % (Auto) 0.1 (0-6) % Baso % (Auto) 0.3 (0-2) % Absolute Neuts (auto) 16.0 H (1.5-7.7) 10^3/ul Absolute Lymphs (auto) 0.7 L (1.0-4.8) 10^3/ul Absolute Monos (auto) 1.3 H (0-0.8) 10^3/ul Absolute Eos (auto) 0 (0-0.6) 10^3/ul Absolute Basos (auto) 0.1 (0-0.2) 10^3/ul Absolute Nucleated RBC 0 10^3/ul Nucleated RBC % 0 INR (Anticoag Therapy) (0.77-1.02) Sodium 137 (133-145) mmol/L Potassium 3.3 L (3.5-5.0) mmol/L Chloride 101 (101-111) mmol/L Carbon Dioxide 25 (22-32) mmol/L Anion Gap 11 (2-11) mmol/L BUN 61 H (6-24) mg/dL Creatinine 1.67 H (0.67-1.17) mg/dL Est GFR ( Amer) 53.0 (>60) Est GFR (Non-Af Amer) 41.2 (>60) BUN/Creatinine Ratio 36.5 H (8-20) Glucose 133 H (70-100) mg/dL Lactic Acid 1.0 (0.5-2.0) mmol/L Calcium 10.1 (8.6-10.3) mg/dL Magnesium 2.1 (1.9-2.7) mg/dL Total Bilirubin 0.40 (0.2-1.0) mg/dL AST 34 (13-39) U/L ALT 23 (7-52) U/L Alkaline Phosphatase 84 (34-104) U/L Troponin I 0.04 H* (<0.04) ng/mL Total Protein 7.8 (6.4-8.9) g/dL Albumin 2.9 L (3.2-5.2) g/dL Globulin 4.9 H (2-4) g/dL Albumin/Globulin Ratio 0.6 L (1-3) 02/23/18 02/23/18 Range/Units 03:10 06:40 WBC (3.5-10.8) 10^3/ul RBC (4.0-5.4) 10^6/ul Hgb (14.0-18.0) g/dl Hct (42-52) % MCV (80-94) fL MCH (27-31) pg MCHC (31-36) g/dl RDW (10.5-15) % Plt Count (150-450) 10^3/ul MPV (7.4-10.4) um3 Neut % (Auto) (38-83) % Lymph % (Auto) (25-47) % [place] % (Auto) (0-7) % Eos % (Auto) (0-6) % Baso % (Auto) (0-2) % Absolute Neuts (auto) (1.5-7.7) 10^3/ul Absolute Lymphs (auto) (1.0-4.8) 10^3/ul Absolute Monos (auto) (0-0.8) 10^3/ul Absolute Eos (auto) (0-0.6) 10^3/ul Absolute Basos (auto) (0-0.2) 10^3/ul Absolute Nucleated RBC 10^3/ul Nucleated RBC % INR (Anticoag Therapy) 1.26 H (0.77-1.02) Sodium (133-145) mmol/L Potassium (3.5-5.0) mmol/L Chloride (101-111) mmol/L Carbon Dioxide (22-32) mmol/L Anion Gap (2-11) mmol/L BUN (6-24) mg/dL Creatinine (0.67-1.17) mg/dL Est GFR ( Amer) (>60) Est GFR (Non-Af Amer) (>60) BUN/Creatinine Ratio (8-20) Glucose (70-100) mg/dL Lactic Acid (0.5-2.0) mmol/L Calcium (8.6-10.3) mg/dL Magnesium (1.9-2.7) mg/dL Total Bilirubin (0.2-1.0) mg/dL AST (13-39) U/L ALT (7-52) U/L Alkaline Phosphatase (34-104) U/L Troponin I 0.03 (<0.04) ng/mL Total Protein (6.4-8.9) g/dL Albumin (3.2-5.2) g/dL Globulin (2-4) g/dL Albumin/Globulin Ratio (1-3) Microbiology and Other Data: Microbiology 02/23/18 14:45 Gram Stain - Final Hip Right 02/23/18 10:55 Nasal Screen MRSA (PCR)([facility]) - Final Nasal Mrsa Not Detected 02/23/18 10:00 Skin and Soft Tissue MRSA/MSSA (PCR - Final Hip Right Mrsa Negative S.aureus Negative Gram Stain - Final Assess/Plan/Problems-Billing Mr Travis is a 67 yo M who has a h/o CAD, HTN, HLD, chronic hip/leg pain who presented to the ER with fever and increased drainage from a R lateral hip decubitus ulcer and was found to be severely septic secondary to the infected decubitus. - Patient Problems (1) Severe sepsis Current Visit: Yes Status: Acute Code(s): A41.9 - SEPSIS, UNSPECIFIED ORGANISM; R65.20 - SEVERE SEPSIS WITHOUT SEPTIC SHOCK SNOMED Code(s): 12854329 Comment: On admission the patient was severely septic based on tachycardia, leukocytosis, fever and end organ dysfunction with an elevated troponin. The severe sepsis is secondary to an infected decubitus ulcer. BP has improved. He is still intermittently tachycardic. (2) Decubitus ulcer, unstageable with infection Current Visit: Yes Status: Acute Code(s): L89.95 - PRESSURE ULCER OF UNSPECIFIED SITE, UNSTAGEABLE; L08.9 - LOCAL INFECTION OF THE SKIN AND SUBCUTANEOUS TISSUE, UNSP SNOMED Code(s): 8502560 Comment: The patient had an unstageable pressure ulcer overlying the R lateral hip on admission. He is now s/p debridement x2 at the bedside. There is continuous copious drainage from the wound. It still smells foul. Will continue zosyn for now. Culture has grown Ecoli, morganella, bacteroides and enterococcus faecalis. Await further input from ID. He will likely need a wound vac at some point down the road. (3) Diarrhea Current Visit: Yes Status: Acute Code(s): R19.7 - DIARRHEA, UNSPECIFIED SNOMED Code(s): 46622588 Comment: The patient continues to have liquid stool and the flexiseal remains in place. (4) HTN (hypertension) Current Visit: Yes Status: Acute Code(s): I10 - ESSENTIAL (PRIMARY) HYPERTENSION SNOMED Code(s): 15780885 Comment: BP remains elevated. Will start amlodipine 5mg daily. Hold HCTZ. (5) HLD (hyperlipidemia) Current Visit: Yes Status: Acute Code(s): E78.5 - HYPERLIPIDEMIA, UNSPECIFIED SNOMED Code(s): 62616885 Comment: He is not on any lipid lowering medications. (6) DVT prophylaxis Current Visit: Yes Status: Acute Code(s): DGI4804 - SNOMED Code(s): 166393183 Comment: SQ heparin (7) DNR (do not resuscitate) Current Visit: Yes Status: Acute
[2018-02-25] MEDS ORDERED: Iodixanol* (CONTRAST) 320 MG/ML 100 ML SDV IV ONE (13:25)
[2018-02-25] MEDS: amLODIPine TAB* 5 MG PO SCH (14:01)
[2018-02-25] MEDS: Mirtazapine TAB* 15 MG PO SCH (20:43)
[2018-02-25] MEDS ORDERED: Heparin VIAL(*) 5000 UNITS/ML VIAL (FIVE THOUSAND) ONE (21:56)
--- NOTE | 2018-02-25 22:28 | RAD ---
CLINICAL HISTORY: Infected pressure wound overlying the right greater trochanter growing organisms associated with the gastrointestinal tract. COMPARISON: Hip radiograph dated February 23, 2018 TECHNIQUE: Multiple contiguous axial CT scans were obtained of the abdomen and pelvis after the administration of intravenous contrast. Coronal and sagittal multiplanar reformations are submitted for review. The patient also received oral and rectal contrast. FINDINGS: Oral contrast is seen filling the small bowel. The rectal contrast has progressed at least as far as the transverse colon. Air-fluid levels are seen in the colon. There is no evidence of enterocutaneous fistula. Soft tissue defect overlying the right greater trochanter is seen. The underlying bones appear to be intact. There are no definite signs of osteomyelitis. Advanced degenerative changes are noted the bilateral hips. IMPRESSION: 1. No CT evidence of enterocutaneous fistula or perforation of the gastrointestinal tract. 2. Soft tissue wound overlying the right greater trochanter abuts the right greater trochanter but the cortex appears to be intact.
[2018-02-26] MEDS: Morphine INJ* 2 MG/ML 1 ML CARPUJECT IV PRN ×3 (04:19→13:08)
[2018-02-26] MEDS: NS 0.9% 1000 ML* 1,000 ML IV SCH (04:23)
[2018-02-26] MEDS: Heparin VIAL(*) 5000 UNITS/ML VIAL (FIVE THOUSAND) SUBCUT SCH ×3 (06:19→22:39)
[2018-02-26] MEDS: Lactobacillus Acidophilu (GG)* 1 CAP CAP PO SCH ×2 (08:54→20:19)
[2018-02-26] MEDS: Sertraline* 25 MG TAB PO SCH (08:54)
[2018-02-26] MEDS: Piperacillin/Tazobactam 13.5 GM IV 24 hour continuous infusion IVPB SCH ×2 (08:54)
[2018-02-26] MEDS: oxyCODONE SR TAB(*) 20 MG TAB.SR PO SCH ×2 (08:55→20:20)
[2018-02-26] MEDS: Thiamine TAB* 100 MG TAB PO SCH (08:55)
[2018-02-26] MEDS: Aspirin EC TAB* 81 MG TAB.EC PO SCH (08:55)
[2018-02-26] MEDS: oxyCODONE TAB* 5 MG TAB PO PRN ×2 (08:55→15:48)
[2018-02-26] MEDS: amLODIPine TAB* 5 MG PO SCH (08:55)
--- NOTE | 2018-02-26 09:25 | PN ---
Subjective Date of Service: 02/26/18 Interval History: Pt is feeling a little better but after I inspect and lightly palpate around the R hip wound he starts to writhe in pain. He told his nurse this AM that he was hungry. Objective Active Medications: Acetaminophen (Tylenol Tab*) 650 mg PO Q6H PRN PRN Reason: FEVER/PAIN Amlodipine Besylate (Norvasc Tab*) 5 mg PO DAILY [facility] Last Admin: 02/26/18 08:55 Dose: 5 mg Aspirin (Aspirin Ec Low Dose*) 81 mg PO DAILY [facility] Last Admin: 02/26/18 08:55 Dose: 81 mg Heparin Sodium (Porcine) (Heparin Vial(*)) 5,000 units SUBCUT Q8HR [facility] Last Admin: 02/26/18 06:19 Dose: Not Given Sodium Chloride (Ns 0.9% 1000 Ml*) 1,000 mls @ 125 mls/hr IV PER RATE [facility] Last Admin: 02/26/18 04:23 Dose: 125 mls/hr Piperacillin Sod/Tazobactam (Sod 13.5 gm/ Sodium Chloride) 500 mls @ 20.833 mls /hr IVPB Q24H [facility] Last Admin: 02/26/18 08:54 Dose: 20.833 mls/hr Lactobacillus Rhamnosus (Culturelle*) 1 cap PO BID [facility] Last Admin: 02/26/18 08:54 Dose: 1 cap Mirtazapine (Remeron Tab*) 7.5 mg PO BEDTIME [facility] Last Admin: 02/25/18 20:43 Dose: 7.5 mg Morphine Sulfate (Morphine Inj (Syringe)*) 4 mg IV Q4H PRN PRN Reason: SEVERE PAIN Last Admin: 02/26/18 04:19 Dose: 4 mg Oxycodone HCl (Oxycontin(*)) 20 mg PO Q12HR [facility] Last Admin: 02/26/18 08:55 Dose: 20 mg Oxycodone HCl (Roxycodone Tab*) 10 mg PO Q4H PRN PRN Reason: PAIN Last Admin: 02/26/18 08:55 Dose: 10 mg Pharmacy Consult (Zosyn Per Pharmacy*) 1 note FOLLOW UP .ZOSYN PER PHARMACY [facility] Potassium Chloride (Klor-Con Liquid*) 40 meq PO ONCE ONE Stop: 02/26/18 12:11 Sertraline HCl (Zoloft*) 25 mg PO DAILY [facility] Last Admin: 02/26/18 08:54 Dose: 25 mg Thiamine HCl (Vitamin B-1 Tab*) 100 mg PO DAILY [facility] Last Admin: 02/26/18 08:55 Dose: 100 mg Vital Signs - 8 hr 02/26/18 02/26/18 02/26/18 04:04 04:19 05:33 Temperature 97.9 F Pulse Rate 97 Respiratory 20 18 20 Rate Blood Pressure 150/84 (mmHg) O2 Sat by Pulse 99 Oximetry 02/26/18 02/26/18 02/26/18 07:44 08:15 08:55 Temperature 98.0 F Pulse Rate 104 98 Respiratory 20 22 20 Rate Blood Pressure 172/97 (mmHg) O2 Sat by Pulse 98 Oximetry Oxygen Devices in Use Now: None Appearance: Middle aged thin male lying in bed, NAD Eyes: No Scleral Icterus Ears/Nose/Mouth/Throat: Mucous Membranes Moist Respiratory: Symmetrical Chest Expansion and Respiratory Effort, Clear to Auscultation Cardiovascular: NL Sounds; No Murmurs; No JVD, RRR, No Edema Abdominal: NL Sounds; No Tenderness; No Distention, - - copious liquid stool in flexiseal Skin: No Nodules or Sclerosis, - - large R lateral hip decubitus packed with gauze that is saturated with brownishe purulent drainage, significant pain with palpation around the wound Neurological: - - alert, oriented to being in the hospital Result Diagrams: 02/25/18 06:08 02/25/18 06:08 Additional Lab and Data: Lab Results 02/23/18 02/23/18 02/23/18 Range/Units 03:10 03:10 03:10 WBC 18.1 H (3.5-10.8) 10^3/ul RBC 3.58 L (4.0-5.4) 10^6/ul Hgb 9.6 L (14.0-18.0) g/dl Hct 29 L (42-52) % MCV 82 (80-94) fL MCH 27 (27-31) pg MCHC 33 (31-36) g/dl RDW 15 (10.5-15) % Plt Count 432 (150-450) 10^3/ul MPV 8.7 (7.4-10.4) um3 Neut % (Auto) 88.6 H (38-83) % Lymph % (Auto) 3.7 L (25-47) % [place] % (Auto) 7.3 H (0-7) % Eos % (Auto) 0.1 (0-6) % Baso % (Auto) 0.3 (0-2) % Absolute Neuts (auto) 16.0 H (1.5-7.7) 10^3/ul Absolute Lymphs (auto) 0.7 L (1.0-4.8) 10^3/ul Absolute Monos (auto) 1.3 H (0-0.8) 10^3/ul Absolute Eos (auto) 0 (0-0.6) 10^3/ul Absolute Basos (auto) 0.1 (0-0.2) 10^3/ul Absolute Nucleated RBC 0 10^3/ul Nucleated RBC % 0 INR (Anticoag Therapy) (0.77-1.02) Sodium 137 (133-145) mmol/L Potassium 3.3 L (3.5-5.0) mmol/L Chloride 101 (101-111) mmol/L Carbon Dioxide 25 (22-32) mmol/L Anion Gap 11 (2-11) mmol/L BUN 61 H (6-24) mg/dL Creatinine 1.67 H (0.67-1.17) mg/dL Est GFR ( Amer) 53.0 (>60) Est GFR (Non-Af Amer) 41.2 (>60) BUN/Creatinine Ratio 36.5 H (8-20) Glucose 133 H (70-100) mg/dL Lactic Acid 1.0 (0.5-2.0) mmol/L Calcium 10.1 (8.6-10.3) mg/dL Magnesium 2.1 (1.9-2.7) mg/dL Total Bilirubin 0.40 (0.2-1.0) mg/dL AST 34 (13-39) U/L ALT 23 (7-52) U/L Alkaline Phosphatase 84 (34-104) U/L Troponin I 0.04 H* (<0.04) ng/mL Total Protein 7.8 (6.4-8.9) g/dL Albumin 2.9 L (3.2-5.2) g/dL Globulin 4.9 H (2-4) g/dL Albumin/Globulin Ratio 0.6 L (1-3) 02/23/18 02/23/18 Range/Units 03:10 06:40 WBC (3.5-10.8) 10^3/ul RBC (4.0-5.4) 10^6/ul Hgb (14.0-18.0) g/dl Hct (42-52) % MCV (80-94) fL MCH (27-31) pg MCHC (31-36) g/dl RDW (10.5-15) % Plt Count (150-450) 10^3/ul MPV (7.4-10.4) um3 Neut % (Auto) (38-83) % Lymph % (Auto) (25-47) % [place] % (Auto) (0-7) % Eos % (Auto) (0-6) % Baso % (Auto) (0-2) % Absolute Neuts (auto) (1.5-7.7) 10^3/ul Absolute Lymphs (auto) (1.0-4.8) 10^3/ul Absolute Monos (auto) (0-0.8) 10^3/ul Absolute Eos (auto) (0-0.6) 10^3/ul Absolute Basos (auto) (0-0.2) 10^3/ul Absolute Nucleated RBC 10^3/ul Nucleated RBC % INR (Anticoag Therapy) 1.26 H (0.77-1.02) Sodium (133-145) mmol/L Potassium (3.5-5.0) mmol/L Chloride (101-111) mmol/L Carbon Dioxide (22-32) mmol/L Anion Gap (2-11) mmol/L BUN (6-24) mg/dL Creatinine (0.67-1.17) mg/dL Est GFR ( Amer) (>60) Est GFR (Non-Af Amer) (>60) BUN/Creatinine Ratio (8-20) Glucose (70-100) mg/dL Lactic Acid (0.5-2.0) mmol/L Calcium (8.6-10.3) mg/dL Magnesium (1.9-2.7) mg/dL Total Bilirubin (0.2-1.0) mg/dL AST (13-39) U/L ALT (7-52) U/L Alkaline Phosphatase (34-104) U/L Troponin I 0.03 (<0.04) ng/mL Total Protein (6.4-8.9) g/dL Albumin (3.2-5.2) g/dL Globulin (2-4) g/dL Albumin/Globulin Ratio (1-3) Microbiology and Other Data: Microbiology 02/23/18 14:45 Gram Stain - Final Hip Right 02/23/18 10:55 Nasal Screen MRSA (PCR)([facility]) - Final Nasal Mrsa Not Detected 02/23/18 10:00 Skin and Soft Tissue MRSA/MSSA (PCR - Final Hip Right Mrsa Negative S.aureus Negative Gram Stain - Final Assess/Plan/Problems-Billing Mr Travis is a 67 yo M who has a h/o CAD, HTN, HLD, chronic hip/leg pain who presented to the ER with fever and increased drainage from a R lateral hip decubitus ulcer and was found to be severely septic secondary to the infected decubitus. - Patient Problems (1) Severe sepsis Current Visit: Yes Status: Acute Code(s): A41.9 - SEPSIS, UNSPECIFIED ORGANISM; R65.20 - SEVERE SEPSIS WITHOUT SEPTIC SHOCK SNOMED Code(s): 75039305 Comment: On admission the patient was severely septic based on tachycardia, leukocytosis, fever and end organ dysfunction with an elevated troponin. The severe sepsis is secondary to an infected decubitus ulcer. BP has improved. He is still intermittently tachycardic. Sepsis has essentially resolved. (2) Decubitus ulcer, unstageable with infection Current Visit: Yes Status: Acute Code(s): L89.95 - PRESSURE ULCER OF UNSPECIFIED SITE, UNSTAGEABLE; L08.9 - LOCAL INFECTION OF THE SKIN AND SUBCUTANEOUS TISSUE, UNSP SNOMED Code(s): 5186946 Comment: CT pelvis done yesterday to r/o enterocutaneous fistula given the culture results. No evidence of this. I suspect the patient's wound became contaminated with stool leading to the current culture data. Continue zosyn. Continue general surgery debridement as needed. He continues to have copious drainage from the wound. (3) Diarrhea Current Visit: Yes Status: Acute Code(s): R19.7 - DIARRHEA, UNSPECIFIED SNOMED Code(s): 67036813 Comment: The patient continues to have liquid stool and the flexiseal remains in place. Cdiff negative. Stool culture negative. (4) HTN (hypertension) Current Visit: Yes Status: Acute Code(s): I10 - ESSENTIAL (PRIMARY) HYPERTENSION SNOMED Code(s): 35562344 Comment: Increase amlodipine to 10mg daily. (5) HLD (hyperlipidemia) Current Visit: Yes Status: Acute Code(s): E78.5 - HYPERLIPIDEMIA, UNSPECIFIED SNOMED Code(s): 45252522 Comment: He is not on any lipid lowering medications. (6) DVT prophylaxis Current Visit: Yes Status: Acute Code(s): PJQ5501 - SNOMED Code(s): 102585286 Comment: SQ heparin (7) DNR (do not resuscitate) Current Visit: Yes Status: Acute
[2018-02-26] MEDS ORDERED: Potassium Chloride LIQUID* 20 MEQ PACKET PO ONE (12:10)
--- NOTE | 2018-02-26 15:34 | PN ---
Progress Note - Progress Note Date of Service: 02/26/18 SOAP: Subjective: Still with quite a bit of pain in right hip and both legs Poor appetite Objective: Intake & Output 02/24/18 02/25/18 02/26/18 02/27/18 06:59 06:59 06:59 06:59 Intake Total 3108 1740 4053 2838 Output Total 250 500 Balance 3108 1490 3553 2838 Weight 135 lb 5.821 oz 135 lb Intake: IV Fluids 2067 1740 1393 1244 ABX - ZOSYN 106 240 160 NS (0.9%) 1961 1500 1233 1244 IVPB 240 2000 654 ABX - ZOSYN 654 NS (0.9%) 240 2000 Oral 800 660 940 Output: Urine 250 500 Other: Estimated Void Medium Medium Date of Last Bowel 02/24/18 Movement # Bowel Movements 1 0 1 Estimated Stool Amount Large Large # Voids 2 1 PEX: Right hip ulcer remains about the same size, some necrotic tissue at the periphery that was sharply removed. Undermining superiorly and medially but tissue underneath is pink and viable. There appears to be decreased drainage from yesterday-no abscess, there is trochanteric bone exposed. Wound was repacked. Assessment: Right hip pressure ulcer s/p debridement Sepsis Plan: Continue present wound care-will re-evaluate this weekend and if still with non- viable tissue present will consider OR debridement on 03/01 Continue IV abx Discussed with Dr. Barrera
[2018-02-26] MEDS: PIPERACILLIN IVPB SCH ×4 (17:40→22:39)
[2018-02-26] MEDS: TAZOBACTAM IVPB SCH ×4 (17:40→22:39)
[2018-02-26] MEDS: SODIUM CHLORIDE IVPB SCH ×4 (17:40→22:39)
[2018-02-26] MEDS: Mirtazapine TAB* 15 MG PO SCH (20:19)
[2018-02-27] MEDS: Morphine INJ* 2 MG/ML 1 ML CARPUJECT IV PRN (01:35)
[2018-02-27] MEDS: oxyCODONE TAB* 5 MG TAB PO PRN (05:17)
[2018-02-27] MEDS: SODIUM CHLORIDE IVPB SCH ×8 (05:18→22:35)
[2018-02-27] MEDS: TAZOBACTAM IVPB SCH ×8 (05:18→22:35)
[2018-02-27] MEDS: PIPERACILLIN IVPB SCH ×8 (05:18→22:35)
[2018-02-27] MEDS: Heparin VIAL(*) 5000 UNITS/ML VIAL (FIVE THOUSAND) SUBCUT SCH ×3 (05:18→21:03)
[2018-02-27] MEDS: Morphine VIAL* 4 MG/ML VIAL (1 ml vial) IV PRN ×3 (06:12→18:40)
[2018-02-27 06:44] LABS: ABS Basophils 0.1 10^3/ul (0-0.2); ABS Eosinophils 0.3 10^3/ul (0-0.6); ABS Monocytes 0.9 10^3/ul (0-0.8); ABS Nucleated RBC 0 10^3/ul; Eosinophil % 3.1 % (0-6); Hematocrit 25 % (42-52); Hemoglobin 8.5 g/dl (14.0-18.0); Lymphocyte % 19.2 % (25-47); Mean Corpuscular HGB Conc 34 g/dl (31-36); Mean Corpuscular Hemoglobin 28 pg (27-31); Mean Corpuscular Volume 81 fL (80-94); Mean Platelet Volume 7.5 um3 (7.4-10.4); Nucleated Red Blood Cells % 0; Platelet Count 525 10^3/ul (150-450); Red Blood Count 3.06 10^6/ul (4.0-5.4); Red Cell Distribution Width 16 % (10.5-15); White Blood Count 10.2 10^3/ul (3.5-10.8)
[2018-02-27 06:59] LABS: EGFR Non-African American 91.1 (>60)
--- NOTE | 2018-02-27 08:34 | PN ---
Progress Note - Progress Note Date of Service: 02/27/18 SOAP: Subjective: Only complaint is continued right hip pain Objective: Afebrile for 24 hours Temp Pulse Resp BP Pulse Ox 97.6 F 96 26 155/89 99 02/27/18 04:37 02/27/18 04:37 02/27/18 05:17 02/27/18 04:37 02/27/18 04:37 PEX: Awake and alert Right hip dressing in place-some brown turbid drainage on outer ABD pad-Packing not changed at this time, breakfast being served and he will need pre- medication. Laboratory Results - last 24 hr 02/27/18 02/27/18 06:28 06:28 WBC 10.2 RBC 3.06 L Hgb 8.5 L Hct 25 L MCV 81 MCH 28 MCHC 34 RDW 16 H Plt Count 525 H MPV 7.5 Neut % (Auto) 68.3 Lymph % (Auto) 19.2 L [place] % (Auto) 8.5 H Eos % (Auto) 3.1 Baso % (Auto) 0.9 Absolute Neuts (auto) 7.0 Absolute Lymphs (auto) 2.0 Absolute Monos (auto) 0.9 H Absolute Eos (auto) 0.3 Absolute Basos (auto) 0.1 Absolute Nucleated RBC 0 Nucleated RBC % 0 Sodium 141 Potassium 3.1 L Chloride 110 Carbon Dioxide 23 Anion Gap 8 BUN 7 Creatinine 0.84 Est GFR ( Amer) 117.2 Est GFR (Non-Af Amer) 91.1 BUN/Creatinine Ratio 8.3 Glucose 108 H Calcium 8.7 C-Reactive Protein 59.50 H Prealbumin < 3 L Assessment: Right hip pressure ulcer s/p debridement-WBC now normal and no fevers. Malnutrition Plan: IV abx Packing change- wound care
[2018-02-27] MEDS: oxyCODONE SR TAB(*) 20 MG TAB.SR PO SCH ×2 (10:08→21:02)
[2018-02-27] MEDS: Lactobacillus Acidophilu (GG)* 1 CAP CAP PO SCH ×2 (10:09→21:01)
[2018-02-27] MEDS: Sertraline* 25 MG TAB PO SCH (10:09)
[2018-02-27] MEDS: Thiamine TAB* 100 MG TAB PO SCH (10:09)
[2018-02-27] MEDS: amLODIPine TAB* 5 MG PO SCH (10:09)
[2018-02-27] MEDS: Aspirin EC TAB* 81 MG TAB.EC PO SCH (10:09)
[2018-02-27] MEDS ORDERED: Potassium Chlor TAB* 20 MEQ TAB.ER PO ONE (10:28)
[2018-02-27] MEDS ORDERED: Morphine VIAL* 4 MG/ML VIAL (1 ml vial) IV ONE (11:53)
--- NOTE | 2018-02-27 14:15 | PN ---
Subjective Date of Service: 02/27/18 Interval History: Pain with dressing changes Received 1x breakthrough morphine and is more sleepy but still responsive denying other complaints Objective Active Medications: Acetaminophen (Tylenol Tab*) 650 mg PO Q6H PRN PRN Reason: FEVER/PAIN Amlodipine Besylate (Norvasc Tab*) 10 mg PO DAILY [facility] Aspirin (Aspirin Ec Low Dose*) 81 mg PO DAILY [facility] Last Admin: 02/27/18 10:09 Dose: 81 mg Heparin Sodium (Porcine) (Heparin Vial(*)) 5,000 units SUBCUT Q8HR [facility] Last Admin: 02/27/18 12:32 Dose: 5,000 units Lactated Ringer's (Lactated Ringers 1000 Ml Bag*) 1,000 mls @ 75 mls/hr IV PER RATE [facility] Last Admin: 02/27/18 06:14 Dose: 75 mls/hr Piperacillin Sod/Tazobactam (Sod 3.375 gm/ Sodium Chloride) 50 mls @ 100 mls/ hr IVPB Q6H [facility] Last Admin: 02/27/18 11:05 Dose: 100 mls/hr Lactobacillus Rhamnosus (Culturelle*) 1 cap PO BID [facility] Last Admin: 02/27/18 10:09 Dose: 1 cap Mirtazapine (Remeron Tab*) 7.5 mg PO BEDTIME [facility] Last Admin: 02/26/18 20:19 Dose: 7.5 mg Morphine Sulfate (Morphine Vial*) 4 mg IV Q4H PRN PRN Reason: SEVERE PAIN Last Admin: 02/27/18 10:09 Dose: 4 mg Oxycodone HCl (Oxycontin(*)) 20 mg PO Q12HR [facility] Last Admin: 02/27/18 10:08 Dose: 20 mg Oxycodone HCl (Roxycodone Tab*) 10 mg PO Q4H PRN PRN Reason: PAIN Last Admin: 02/27/18 05:17 Dose: 10 mg Pharmacy Consult (Zosyn Per Pharmacy*) 1 note FOLLOW UP .ZOSYN PER PHARMACY [facility] Sertraline HCl (Zoloft*) 25 mg PO DAILY [facility] Last Admin: 02/27/18 10:09 Dose: 25 mg Thiamine HCl (Vitamin B-1 Tab*) 100 mg PO DAILY [facility] Last Admin: 02/27/18 10:09 Dose: 100 mg Vital Signs - 8 hr 02/27/18 02/27/18 02/27/18 08:40 09:13 10:08 Temperature 99.2 F Pulse Rate 95 95 Respiratory 18 18 14 Rate Blood Pressure 178/106 178/106 (mmHg) O2 Sat by Pulse 99 Oximetry Oxygen Devices in Use Now: None Appearance: thin, ill appearing, NAD Eyes: No Scleral Icterus, PERRLA Ears/Nose/Mouth/Throat: NL Teeth, Lips, Gums, Clear Oropharnyx, - - dry MM Neck: NL Appearance and Movements; NL JVP Respiratory: Symmetrical Chest Expansion and Respiratory Effort, Clear to Auscultation Cardiovascular: RRR Extremities: No Edema, - - right hip unstageable decub with bone clearly protuding Neurological: - - AOx2, LE contractions Result Diagrams: 02/27/18 06:28 02/27/18 06:28 Additional Lab and Data: Lab Results 02/23/18 02/23/18 02/23/18 Range/Units 03:10 03:10 03:10 WBC 18.1 H (3.5-10.8) 10^3/ul RBC 3.58 L (4.0-5.4) 10^6/ul Hgb 9.6 L (14.0-18.0) g/dl Hct 29 L (42-52) % MCV 82 (80-94) fL MCH 27 (27-31) pg MCHC 33 (31-36) g/dl RDW 15 (10.5-15) % Plt Count 432 (150-450) 10^3/ul MPV 8.7 (7.4-10.4) um3 Neut % (Auto) 88.6 H (38-83) % Lymph % (Auto) 3.7 L (25-47) % [place] % (Auto) 7.3 H (0-7) % Eos % (Auto) 0.1 (0-6) % Baso % (Auto) 0.3 (0-2) % Absolute Neuts (auto) 16.0 H (1.5-7.7) 10^3/ul Absolute Lymphs (auto) 0.7 L (1.0-4.8) 10^3/ul Absolute Monos (auto) 1.3 H (0-0.8) 10^3/ul Absolute Eos (auto) 0 (0-0.6) 10^3/ul Absolute Basos (auto) 0.1 (0-0.2) 10^3/ul Absolute Nucleated RBC 0 10^3/ul Nucleated RBC % 0 INR (Anticoag Therapy) (0.77-1.02) Sodium 137 (133-145) mmol/L Potassium 3.3 L (3.5-5.0) mmol/L Chloride 101 (101-111) mmol/L Carbon Dioxide 25 (22-32) mmol/L Anion Gap 11 (2-11) mmol/L BUN 61 H (6-24) mg/dL Creatinine 1.67 H (0.67-1.17) mg/dL Est GFR ( Amer) 53.0 (>60) Est GFR (Non-Af Amer) 41.2 (>60) BUN/Creatinine Ratio 36.5 H (8-20) Glucose 133 H (70-100) mg/dL Lactic Acid 1.0 (0.5-2.0) mmol/L Calcium 10.1 (8.6-10.3) mg/dL Magnesium 2.1 (1.9-2.7) mg/dL Total Bilirubin 0.40 (0.2-1.0) mg/dL AST 34 (13-39) U/L ALT 23 (7-52) U/L Alkaline Phosphatase 84 (34-104) U/L Troponin I 0.04 H* (<0.04) ng/mL Total Protein 7.8 (6.4-8.9) g/dL Albumin 2.9 L (3.2-5.2) g/dL Globulin 4.9 H (2-4) g/dL Albumin/Globulin Ratio 0.6 L (1-3) 02/23/18 02/23/18 Range/Units 03:10 06:40 WBC (3.5-10.8) 10^3/ul RBC (4.0-5.4) 10^6/ul Hgb (14.0-18.0) g/dl Hct (42-52) % MCV (80-94) fL MCH (27-31) pg MCHC (31-36) g/dl RDW (10.5-15) % Plt Count (150-450) 10^3/ul MPV (7.4-10.4) um3 Neut % (Auto) (38-83) % Lymph % (Auto) (25-47) % [place] % (Auto) (0-7) % Eos % (Auto) (0-6) % Baso % (Auto) (0-2) % Absolute Neuts (auto) (1.5-7.7) 10^3/ul Absolute Lymphs (auto) (1.0-4.8) 10^3/ul Absolute Monos (auto) (0-0.8) 10^3/ul Absolute Eos (auto) (0-0.6) 10^3/ul Absolute Basos (auto) (0-0.2) 10^3/ul Absolute Nucleated RBC 10^3/ul Nucleated RBC % INR (Anticoag Therapy) 1.26 H (0.77-1.02) Sodium (133-145) mmol/L Potassium (3.5-5.0) mmol/L Chloride (101-111) mmol/L Carbon Dioxide (22-32) mmol/L Anion Gap (2-11) mmol/L BUN (6-24) mg/dL Creatinine (0.67-1.17) mg/dL Est GFR ( Amer) (>60) Est GFR (Non-Af Amer) (>60) BUN/Creatinine Ratio (8-20) Glucose (70-100) mg/dL Lactic Acid (0.5-2.0) mmol/L Calcium (8.6-10.3) mg/dL Magnesium (1.9-2.7) mg/dL Total Bilirubin (0.2-1.0) mg/dL AST (13-39) U/L ALT (7-52) U/L Alkaline Phosphatase (34-104) U/L Troponin I 0.03 (<0.04) ng/mL Total Protein (6.4-8.9) g/dL Albumin (3.2-5.2) g/dL Globulin (2-4) g/dL Albumin/Globulin Ratio (1-3) Microbiology and Other Data: Microbiology 02/23/18 14:45 Gram Stain - Final Hip Right 02/23/18 10:55 Nasal Screen MRSA (PCR)([facility]) - Final Nasal Mrsa Not Detected 02/23/18 10:00 Skin and Soft Tissue MRSA/MSSA (PCR - Final Hip Right Mrsa Negative S.aureus Negative Gram Stain - Final Assess/Plan/Problems-Billing Mr Travis is a 67 yo M who has a h/o CAD, HTN, HLD, chronic hip/leg pain who presented to the ER with fever and increased drainage from a R lateral hip decubitus ulcer and was found to be severely septic secondary to the infected decubitus. - Patient Problems (1) Decubitus ulcer, unstageable with infection Comment: CT pelvis done w/o e/o enterocutaneous fistula Continue zosyn. Continue general surgery debridement as needed and packing He continues to have copious drainage from the wound. (2) Diarrhea Comment: The patient continues to have liquid stool and the flexiseal remains in place. Cdiff negative. Stool culture negative. (3) HTN (hypertension) Comment: Increased amlodipine to 10mg daily. (4) Severe protein-calorie malnutrition Comment: prealbulin <3 poor PO intake chronic infection (5) Severe sepsis Status: Resolved Comment: On admission the patient was severely septic based on tachycardia, leukocytosis, fever and end organ dysfunction with an elevated troponin. The severe sepsis is secondary to an infected decubitus ulcer. (6) DVT prophylaxis Comment: SQ heparin (7) DNR (do not resuscitate)
[2018-02-27] MEDS: Mirtazapine TAB* 15 MG PO SCH (21:02)
[2018-02-28] MEDS: Morphine VIAL* 4 MG/ML VIAL (1 ml vial) IV PRN ×5 (00:31→21:38)
[2018-02-28] MEDS: Heparin VIAL(*) 5000 UNITS/ML VIAL (FIVE THOUSAND) SUBCUT SCH ×3 (05:09→22:42)
[2018-02-28] MEDS: TAZOBACTAM IVPB SCH ×8 (05:09→22:39)
[2018-02-28] MEDS: SODIUM CHLORIDE IVPB SCH ×8 (05:09→22:39)
[2018-02-28] MEDS: PIPERACILLIN IVPB SCH ×8 (05:09→22:39)
[2018-02-28 06:56] LABS: EGFR Non-African American 85.3 (>60)
[2018-02-28] MEDS: Lactobacillus Acidophilu (GG)* 1 CAP CAP PO SCH ×2 (09:07→22:40)
[2018-02-28] MEDS: Aspirin EC TAB* 81 MG TAB.EC PO SCH (09:07)
[2018-02-28] MEDS: oxyCODONE SR TAB(*) 20 MG TAB.SR PO SCH ×2 (09:07→22:40)
[2018-02-28] MEDS: amLODIPine TAB* 5 MG PO SCH (09:09)
[2018-02-28] MEDS: Thiamine TAB* 100 MG TAB PO SCH (09:09)
[2018-02-28] MEDS: Sertraline* 25 MG TAB PO SCH (09:09)
[2018-02-28] MEDS: oxyCODONE TAB* 5 MG TAB PO PRN ×2 (11:32→17:56)
--- NOTE | 2018-02-28 14:53 | PN ---
Subjective Date of Service: 02/28/18 Interval History: More alert today. Sitting up, eating finger foods. Conversant. Tolerating packing better (did get 4 mg morphine first) Still confused - relayed story about how he developed decubitus ulcer that made no sense. Objective Active Medications: Acetaminophen (Tylenol Tab*) 650 mg PO Q6H PRN PRN Reason: FEVER/PAIN Amlodipine Besylate (Norvasc Tab*) 10 mg PO DAILY [facility] Last Admin: 02/28/18 09:09 Dose: 10 mg Aspirin (Aspirin Ec Low Dose*) 81 mg PO DAILY [facility] Last Admin: 02/28/18 09:07 Dose: 81 mg Heparin Sodium (Porcine) (Heparin Vial(*)) 5,000 units SUBCUT Q8HR [facility] Last Admin: 02/28/18 13:14 Dose: 5,000 units Lactated Ringer's (Lactated Ringers 1000 Ml Bag*) 1,000 mls @ 75 mls/hr IV PER RATE [facility] Last Admin: 02/27/18 22:36 Dose: 75 mls/hr Piperacillin Sod/Tazobactam (Sod 3.375 gm/ Sodium Chloride) 50 mls @ 100 mls/ hr IVPB Q6H [facility] Last Admin: 02/28/18 13:14 Dose: 100 mls/hr Lactobacillus Rhamnosus (Culturelle*) 1 cap PO BID [facility] Last Admin: 02/28/18 09:07 Dose: 1 cap Mirtazapine (Remeron Tab*) 7.5 mg PO BEDTIME [facility] Last Admin: 02/27/18 21:02 Dose: 7.5 mg Morphine Sulfate (Morphine Vial*) 4 mg IV Q4H PRN PRN Reason: SEVERE PAIN Last Admin: 02/28/18 13:14 Dose: 4 mg Oxycodone HCl (Oxycontin(*)) 20 mg PO Q12HR [facility] Last Admin: 02/28/18 09:07 Dose: 20 mg Oxycodone HCl (Roxycodone Tab*) 10 mg PO Q4H PRN PRN Reason: PAIN Last Admin: 02/28/18 11:32 Dose: 10 mg Pharmacy Consult (Zosyn Per Pharmacy*) 1 note FOLLOW UP .ZOSYN PER PHARMACY [facility] Sertraline HCl (Zoloft*) 25 mg PO DAILY [facility] Last Admin: 04/01/18 09:09 Dose: 25 mg Thiamine HCl (Vitamin B-1 Tab*) 100 mg PO DAILY [facility] Last Admin: 02/28/18 09:09 Dose: 100 mg Vital Signs - 8 hr 02/28/18 02/28/18 02/28/18 07:43 08:00 09:07 Temperature 98.2 F Pulse Rate 94 Respiratory 15 35 35 Rate Blood Pressure 150/88 (mmHg) O2 Sat by Pulse 100 Oximetry 02/28/18 02/28/18 10:34 11:32 Temperature Pulse Rate Respiratory 20 16 Rate Blood Pressure (mmHg) O2 Sat by Pulse Oximetry Oxygen Devices in Use Now: None Appearance: thin, NAD Eyes: No Scleral Icterus, PERRLA Ears/Nose/Mouth/Throat: Mucous Membranes Moist Neck: NL Appearance and Movements; NL JVP, Trachea Midline Respiratory: Symmetrical Chest Expansion and Respiratory Effort, Clear to Auscultation Cardiovascular: RRR Abdominal: NL Sounds; No Tenderness; No Distention Lymphatic: No Cervical Adenopathy Extremities: No Edema, - - contracted LEs Skin: - - right hip stage 4 sacral decub with bone visible approx 8cm by 6cm Neurological: - - Aox2 to self and "hospital" but not year Result Diagrams: 02/27/18 06:28 02/28/18 06:22 Additional Lab and Data: Lab Results 02/23/18 02/23/18 02/23/18 Range/Units 03:10 03:10 03:10 WBC 18.1 H (3.5-10.8) 10^3/ul RBC 3.58 L (4.0-5.4) 10^6/ul Hgb 9.6 L (14.0-18.0) g/dl Hct 29 L (42-52) % MCV 82 (80-94) fL MCH 27 (27-31) pg MCHC 33 (31-36) g/dl RDW 15 (10.5-15) % Plt Count 432 (150-450) 10^3/ul MPV 8.7 (7.4-10.4) um3 Neut % (Auto) 88.6 H (38-83) % Lymph % (Auto) 3.7 L (25-47) % [place] % (Auto) 7.3 H (0-7) % Eos % (Auto) 0.1 (0-6) % Baso % (Auto) 0.3 (0-2) % Absolute Neuts (auto) 16.0 H (1.5-7.7) 10^3/ul Absolute Lymphs (auto) 0.7 L (1.0-4.8) 10^3/ul Absolute Monos (auto) 1.3 H (0-0.8) 10^3/ul Absolute Eos (auto) 0 (0-0.6) 10^3/ul Absolute Basos (auto) 0.1 (0-0.2) 10^3/ul Absolute Nucleated RBC 0 10^3/ul Nucleated RBC % 0 INR (Anticoag Therapy) (0.77-1.02) Sodium 137 (133-145) mmol/L Potassium 3.3 L (3.5-5.0) mmol/L Chloride 101 (101-111) mmol/L Carbon Dioxide 25 (22-32) mmol/L Anion Gap 11 (2-11) mmol/L BUN 61 H (6-24) mg/dL Creatinine 1.67 H (0.67-1.17) mg/dL Est GFR ( Amer) 53.0 (>60) Est GFR (Non-Af Amer) 41.2 (>60) BUN/Creatinine Ratio 36.5 H (8-20) Glucose 133 H (70-100) mg/dL Lactic Acid 1.0 (0.5-2.0) mmol/L Calcium 10.1 (8.6-10.3) mg/dL Magnesium 2.1 (1.9-2.7) mg/dL Total Bilirubin 0.40 (0.2-1.0) mg/dL AST 34 (13-39) U/L ALT 23 (7-52) U/L Alkaline Phosphatase 84 (34-104) U/L Troponin I 0.04 H* (<0.04) ng/mL Total Protein 7.8 (6.4-8.9) g/dL Albumin 2.9 L (3.2-5.2) g/dL Globulin 4.9 H (2-4) g/dL Albumin/Globulin Ratio 0.6 L (1-3) 02/23/18 02/23/18 Range/Units 03:10 06:40 WBC (3.5-10.8) 10^3/ul RBC (4.0-5.4) 10^6/ul Hgb (14.0-18.0) g/dl Hct (42-52) % MCV (80-94) fL MCH (27-31) pg MCHC (31-36) g/dl RDW (10.5-15) % Plt Count (150-450) 10^3/ul MPV (7.4-10.4) um3 Neut % (Auto) (38-83) % Lymph % (Auto) (25-47) % [place] % (Auto) (0-7) % Eos % (Auto) (0-6) % Baso % (Auto) (0-2) % Absolute Neuts (auto) (1.5-7.7) 10^3/ul Absolute Lymphs (auto) (1.0-4.8) 10^3/ul Absolute Monos (auto) (0-0.8) 10^3/ul Absolute Eos (auto) (0-0.6) 10^3/ul Absolute Basos (auto) (0-0.2) 10^3/ul Absolute Nucleated RBC 10^3/ul Nucleated RBC % INR (Anticoag Therapy) 1.26 H (0.77-1.02) Sodium (133-145) mmol/L Potassium (3.5-5.0) mmol/L Chloride (101-111) mmol/L Carbon Dioxide (22-32) mmol/L Anion Gap (2-11) mmol/L BUN (6-24) mg/dL Creatinine (0.67-1.17) mg/dL Est GFR ( Amer) (>60) Est GFR (Non-Af Amer) (>60) BUN/Creatinine Ratio (8-20) Glucose (70-100) mg/dL Lactic Acid (0.5-2.0) mmol/L Calcium (8.6-10.3) mg/dL Magnesium (1.9-2.7) mg/dL Total Bilirubin (0.2-1.0) mg/dL AST (13-39) U/L ALT (7-52) U/L Alkaline Phosphatase (34-104) U/L Troponin I 0.03 (<0.04) ng/mL Total Protein (6.4-8.9) g/dL Albumin (3.2-5.2) g/dL Globulin (2-4) g/dL Albumin/Globulin Ratio (1-3) Microbiology and Other Data: Microbiology 02/23/18 14:45 Gram Stain - Final Hip Right 02/23/18 10:55 Nasal Screen MRSA (PCR)([facility]) - Final Nasal Mrsa Not Detected 02/23/18 10:00 Skin and Soft Tissue MRSA/MSSA (PCR - Final Hip Right Mrsa Negative S.aureus Negative Gram Stain - Final Assess/Plan/Problems-Billing Mr Travis is a 67 yo M who has a h/o CAD, HTN, HLD, chronic hip/leg pain who presented to the ER with fever and increased drainage from a R lateral hip decubitus ulcer and was found to be severely septic secondary to the infected decubitus. - Patient Problems (1) Decubitus ulcer, unstageable with infection Comment: CT pelvis done w/o e/o enterocutaneous fistula Continue zosyn. Continue general surgery debridement as needed and packing He continues to have copious drainage from the wound. (2) Diarrhea Comment: The patient continues to have liquid stool and the flexiseal remains in place. Cdiff negative. Stool culture negative. Maybe antibiotic related (3) HTN (hypertension) Comment: Increased amlodipine to 10mg daily 02/26 (4) Severe protein-calorie malnutrition Comment: prealbulin <3 poor PO intake chronic infection (5) Severe sepsis Status: Resolved Comment: On admission the patient was severely septic based on tachycardia, leukocytosis, fever and end organ dysfunction with an elevated troponin. The severe sepsis is secondary to an infected decubitus ulcer. now resolved (6) DVT prophylaxis Comment: SQ heparin (7) DNR (do not resuscitate)
[2018-02-28] MEDS: Mirtazapine TAB* 15 MG PO SCH (22:40)
[2018-03-01] MEDS: SODIUM CHLORIDE IVPB SCH ×6 (05:12→18:52)
[2018-03-01] MEDS: TAZOBACTAM IVPB SCH ×2 (05:12)
[2018-03-01] MEDS: PIPERACILLIN IVPB SCH ×2 (05:12)
[2018-03-01] MEDS: Heparin VIAL(*) 5000 UNITS/ML VIAL (FIVE THOUSAND) SUBCUT SCH ×3 (05:12→21:11)
[2018-03-01] MEDS: amLODIPine TAB* 5 MG PO SCH (08:12)
[2018-03-01] MEDS: oxyCODONE SR TAB(*) 20 MG TAB.SR PO SCH ×2 (08:12→21:11)
[2018-03-01] MEDS: oxyCODONE TAB* 5 MG TAB PO PRN (08:13)
[2018-03-01] MEDS: Lactobacillus Acidophilu (GG)* 1 CAP CAP PO SCH ×2 (08:14→21:09)
[2018-03-01] MEDS: Thiamine TAB* 100 MG TAB PO SCH (08:14)
[2018-03-01] MEDS: Sertraline* 25 MG TAB PO SCH (08:14)
[2018-03-01] MEDS: Aspirin EC TAB* 81 MG TAB.EC PO SCH (08:14)
--- NOTE | 2018-03-01 09:23 | PN ---
Progress Note - Progress Note Date of Service: 03/01/18 SOAP: Subjective: CC: hip wound HPI: 67 year old man with chronic right hip wound and baseline contractures; admitted with decr mental status and purulent drainage from wound which has been debrided. Hip is painful, less drainage. No fever or rash. Significant liquid stool, he is not sure how long he has had it; rectal tube. Objective: [] Vital Signs Temp 36.4 C 03/01/18 07:33 Pulse 100 03/01/18 07:33 Resp 18 03/01/18 08:55 BP 159/101 03/01/18 07:33 Pulse Ox 99 03/01/18 07:33 Intake & Output 02/28/18 03/01/18 03/01/18 18:59 06:59 18:59 Intake Total 1910 739 Output Total 600 2950 550 Balance 1310 -2211 -550 Intake: IV Fluids 350 632 ABX - ZOSYN 50 105 LR 300 527 IVPB 1200 107 ABX - ZOSYN 1200 107 Oral 360 0 Output: Urine 600 [place] 2950 550 Gen:awake, no distress Neuro:alert, Ox3 HEENT:no thrush CV: no murmur Pulm: CTA BL Abd:+BS NTND soft Skin: no rash MSK: lateral hip wound, no surrounding erythema Microbiology 02/25/18 16:45 Stool Culture - Final Stool Stool Gross Appearance - Final C. difficile DNA Amplification - Final 027 Presumptive NEGATIVE Toxigenic C.diff NEGATIVE Assessment: 1. chronic non pressure related right hip wound overlying prox femur; chronic osteomyelitis; org from wound raised concern for bowel fistula which was not detected by CT imaging 2. diarrhea; could be due to zosyn 3. CAD Plan: 1. change zosyn to ancef and flagyl (ordered), will plan on 6 weeks abx, continued wound care 25 minutes floor time >50% face to face discussing antibiotic plans
[2018-03-01] MEDS ORDERED: ceFAZolin 1 GM VIAL(*) 1 GM in NS 0.9% 50 ML* 50 ML IVPB SCH (10:00)
[2018-03-01] MEDS: CEFAZOLIN IVPB SCH ×4 (10:16→18:52)
[2018-03-01] MEDS: D5W NS 0.9% 20Meq KCL 1000 ML* 1,000 ML IV SCH (10:16)
[2018-03-01] MEDS: Morphine VIAL* 4 MG/ML VIAL (1 ml vial) IV PRN (10:51)
--- NOTE | 2018-03-01 13:16 | PN ---
Progress Note - Progress Note Date of Service: 03/01/18 SOAP: Subjective: He says he is having less pain in the right hip and legs. Still with poor appetite Objective: [] Temp Pulse Resp BP Pulse Ox 99.2 F 98 18 135/86 99 03/01/18 11:29 03/01/18 11:29 03/01/18 11:29 03/01/18 11:29 03/01/18 11:29 PEX: Right hip pressure ulcer is much roll cleaner-small amount of drainage and some nonviable tissue at base that was sharply debrided today. Exposed greater trochanter is clean. Packing changed. Assessment: Right hip pressure ulcer Malnutrition Plan: Continue present wound care with daily packing changes-may consider VAC device in next several days. IV abx-Dr. Acuna's note appreciated.
--- NOTE | 2018-03-01 14:28 | PN ---
Subjective Date of Service: 03/01/18 Interval History: He deines pain. He avoids directly answering questions about his appetite or eating. He states he used to weigh 175 lbs. Objective Active Medications: Acetaminophen (Tylenol Tab*) 650 mg PO Q6H PRN PRN Reason: FEVER/PAIN Amlodipine Besylate (Norvasc Tab*) 10 mg PO DAILY [facility] Last Admin: 03/01/18 08:12 Dose: 10 mg Aspirin (Aspirin Ec Low Dose*) 81 mg PO DAILY [facility] Last Admin: 03/01/18 08:14 Dose: 81 mg Heparin Sodium (Porcine) (Heparin Vial(*)) 5,000 units SUBCUT Q8HR [facility] Last Admin: 03/01/18 14:16 Dose: 5,000 units Potassium Chloride/Dextrose (D5w Ns 0.9% 20meq Kcl 1000 Ml*) 1,000 mls @ 50 mls /hr IV PER RATE [facility] Last Admin: 03/01/18 10:16 Dose: 50 mls/hr Cefazolin Sodium 1 gm/ Sodium (Chloride) 10 mls @ 60 mls/hr IVPB Q8H [facility] Last Admin: 03/01/18 10:16 Dose: 60 mls/hr Lactobacillus Rhamnosus (Culturelle*) 1 cap PO BID [facility] Last Admin: 03/01/18 08:14 Dose: 1 cap Metronidazole (Flagyl Tab*) 500 mg PO BID [facility] Mirtazapine (Remeron Tab*) 7.5 mg PO BEDTIME [facility] Last Admin: 02/28/18 22:40 Dose: 7.5 mg Morphine Sulfate (Morphine Vial*) 4 mg IV Q4H PRN PRN Reason: SEVERE PAIN Last Admin: 03/01/18 10:51 Dose: 4 mg Oxycodone HCl (Oxycontin(*)) 20 mg PO Q12HR [facility] Last Admin: 03/01/18 08:12 Dose: 20 mg Oxycodone HCl (Roxycodone Tab*) 10 mg PO Q4H PRN PRN Reason: PAIN Last Admin: 03/01/18 08:13 Dose: 10 mg Sertraline HCl (Zoloft*) 25 mg PO DAILY [facility] Last Admin: 03/01/18 08:14 Dose: 25 mg Thiamine HCl (Vitamin B-1 Tab*) 100 mg PO DAILY [facility] Last Admin: 04/02/18 08:14 Dose: 100 mg Vital Signs - 8 hr 03/01/18 03/01/18 03/01/18 07:33 08:12 08:13 Temperature 97.5 F Pulse Rate 100 Respiratory 21 24 24 Rate Blood Pressure 159/101 (mmHg) O2 Sat by Pulse 99 Oximetry 03/01/18 03/01/18 03/01/18 08:55 10:33 11:29 Temperature 99.2 F Pulse Rate 98 Respiratory 18 12 18 Rate Blood Pressure 135/86 (mmHg) O2 Sat by Pulse 99 Oximetry Oxygen Devices in Use Now: None Appearance: Alert, lying on his R side in bed. Neutral affect. Looks comfortable. Eyes: No Scleral Icterus Extremities: No Edema, No Clubbing, Cyanosis, - Skin: No Nodules or Sclerosis, - - R hip area bandaged. Neurological: Alert and Oriented x 3, NL Sensation Result Diagrams: 02/27/18 06:28 02/28/18 06:22 Additional Lab and Data: Lab Results 02/23/18 02/23/18 02/23/18 Range/Units 03:10 03:10 03:10 WBC 18.1 H (3.5-10.8) 10^3/ul RBC 3.58 L (4.0-5.4) 10^6/ul Hgb 9.6 L (14.0-18.0) g/dl Hct 29 L (42-52) % MCV 82 (80-94) fL MCH 27 (27-31) pg MCHC 33 (31-36) g/dl RDW 15 (10.5-15) % Plt Count 432 (150-450) 10^3/ul MPV 8.7 (7.4-10.4) um3 Neut % (Auto) 88.6 H (38-83) % Lymph % (Auto) 3.7 L (25-47) % [place] % (Auto) 7.3 H (0-7) % Eos % (Auto) 0.1 (0-6) % Baso % (Auto) 0.3 (0-2) % Absolute Neuts (auto) 16.0 H (1.5-7.7) 10^3/ul Absolute Lymphs (auto) 0.7 L (1.0-4.8) 10^3/ul Absolute Monos (auto) 1.3 H (0-0.8) 10^3/ul Absolute Eos (auto) 0 (0-0.6) 10^3/ul Absolute Basos (auto) 0.1 (0-0.2) 10^3/ul Absolute Nucleated RBC 0 10^3/ul Nucleated RBC % 0 INR (Anticoag Therapy) (0.77-1.02) Sodium 137 (133-145) mmol/L Potassium 3.3 L (3.5-5.0) mmol/L Chloride 101 (101-111) mmol/L Carbon Dioxide 25 (22-32) mmol/L Anion Gap 11 (2-11) mmol/L BUN 61 H (6-24) mg/dL Creatinine 1.67 H (0.67-1.17) mg/dL Est GFR ( Amer) 53.0 (>60) Est GFR (Non-Af Amer) 41.2 (>60) BUN/Creatinine Ratio 36.5 H (8-20) Glucose 133 H (70-100) mg/dL Lactic Acid 1.0 (0.5-2.0) mmol/L Calcium 10.1 (8.6-10.3) mg/dL Magnesium 2.1 (1.9-2.7) mg/dL Total Bilirubin 0.40 (0.2-1.0) mg/dL AST 34 (13-39) U/L ALT 23 (7-52) U/L Alkaline Phosphatase 84 (34-104) U/L Troponin I 0.04 H* (<0.04) ng/mL Total Protein 7.8 (6.4-8.9) g/dL Albumin 2.9 L (3.2-5.2) g/dL Globulin 4.9 H (2-4) g/dL Albumin/Globulin Ratio 0.6 L (1-3) 02/23/18 02/23/18 Range/Units 03:10 06:40 WBC (3.5-10.8) 10^3/ul RBC (4.0-5.4) 10^6/ul Hgb (14.0-18.0) g/dl Hct (42-52) % MCV (80-94) fL MCH (27-31) pg MCHC (31-36) g/dl RDW (10.5-15) % Plt Count (150-450) 10^3/ul MPV (7.4-10.4) um3 Neut % (Auto) (38-83) % Lymph % (Auto) (25-47) % [place] % (Auto) (0-7) % Eos % (Auto) (0-6) % Baso % (Auto) (0-2) % Absolute Neuts (auto) (1.5-7.7) 10^3/ul Absolute Lymphs (auto) (1.0-4.8) 10^3/ul Absolute Monos (auto) (0-0.8) 10^3/ul Absolute Eos (auto) (0-0.6) 10^3/ul Absolute Basos (auto) (0-0.2) 10^3/ul Absolute Nucleated RBC 10^3/ul Nucleated RBC % INR (Anticoag Therapy) 1.26 H (0.77-1.02) Sodium (133-145) mmol/L Potassium (3.5-5.0) mmol/L Chloride (101-111) mmol/L Carbon Dioxide (22-32) mmol/L Anion Gap (2-11) mmol/L BUN (6-24) mg/dL Creatinine (0.67-1.17) mg/dL Est GFR ( Amer) (>60) Est GFR (Non-Af Amer) (>60) BUN/Creatinine Ratio (8-20) Glucose (70-100) mg/dL Lactic Acid (0.5-2.0) mmol/L Calcium (8.6-10.3) mg/dL Magnesium (1.9-2.7) mg/dL Total Bilirubin (0.2-1.0) mg/dL AST (13-39) U/L ALT (7-52) U/L Alkaline Phosphatase (34-104) U/L Troponin I 0.03 (<0.04) ng/mL Total Protein (6.4-8.9) g/dL Albumin (3.2-5.2) g/dL Globulin (2-4) g/dL Albumin/Globulin Ratio (1-3) Microbiology and Other Data: Microbiology 02/23/18 14:45 Gram Stain - Final Hip Right 02/23/18 10:55 Nasal Screen MRSA (PCR)([facility]) - Final Nasal Mrsa Not Detected 02/23/18 10:00 Skin and Soft Tissue MRSA/MSSA (PCR - Final Hip Right Mrsa Negative S.aureus Negative Gram Stain - Final Assess/Plan/Problems-Billing Mr Travis is a 67 yo M who has a h/o CAD, HTN, HLD, chronic hip/leg pain who presented to the ER with fever and increased drainage from a R lateral hip decubitus ulcer and was found to be severely septic secondary to the infected decubitus. - Patient Problems (1) Decubitus ulcer, unstageable with infection Current Visit: Yes Status: Resolved Code(s): L89.95 - PRESSURE ULCER OF UNSPECIFIED SITE, UNSTAGEABLE; L08.9 - LOCAL INFECTION OF THE SKIN AND SUBCUTANEOUS TISSUE, UNSP SNOMED Code(s): 7235618 Comment: CT pelvis done w/o e/o enterocutaneous fistula Continue zosyn. Continue general surgery debridement as needed and packing He continues to have copious drainage from the wound. CRP down to 74.74 03/01/18. (2) HTN (hypertension) Current Visit: Yes Status: Acute Code(s): I10 - ESSENTIAL (PRIMARY) HYPERTENSION SNOMED Code(s): 07014143 Comment: Increased amlodipine to 10mg daily 02/26. Start metoprolol 25 mg bid PM 03/01/18. (3) Severe protein-calorie malnutrition Current Visit: Yes Status: Acute Code(s): E43 - UNSPECIFIED SEVERE PROTEIN- CALORIE MALNUTRITION SNOMED Code(s): 613350069 Comment: prealbulin <3 poor PO intake I will discuss with Dr. Meredith.
[2018-03-01] MEDS ORDERED: TPN* 24 HR with Dextrose 50% Water* 500 ML, Amino Acid Infusion 10%* 850 ML, Sterile Wa... CENTR SCH ×12 (17:00)
[2018-03-01] MEDS ORDERED: Metoprolol Tartrate TAB* 25 MG PO SCH (21:00)
[2018-03-01] MEDS: metroNIDAZOLE TAB* 250 MG PO SCH (21:10)
[2018-03-01] MEDS: Mirtazapine TAB* 15 MG PO SCH (21:10)
[2018-03-01] MEDS ORDERED: hydrALAZINE IV* 20 MG/ML VIAL ONE (23:25)
[2018-03-01] MEDS: hydrALAZINE IV* 20 MG/ML VIAL IV SLOW PU PRN (23:27)
[2018-03-02] MEDS: SODIUM CHLORIDE IVPB SCH ×2 (01:55)
[2018-03-02] MEDS: CEFAZOLIN IVPB SCH ×4 (01:55→18:06)
[2018-03-02] MEDS: Heparin VIAL(*) 5000 UNITS/ML VIAL (FIVE THOUSAND) SUBCUT SCH ×3 (04:25→20:56)
[2018-03-02] MEDS: D5W NS 0.9% 20Meq KCL 1000 ML* 1,000 ML IV SCH (06:06)
[2018-03-02 07:04] LABS: EGFR Non-African American 92.4 (>60)
--- NOTE | 2018-03-02 09:13 | PN ---
Subjective Date of Service: 03/02/18 Interval History: He denies pain, SOB, cough. Appetite fair. No new c/o. Objective Active Medications: Acetaminophen (Tylenol Tab*) 650 mg PO Q6H PRN PRN Reason: FEVER/PAIN Amlodipine Besylate (Norvasc Tab*) 10 mg PO DAILY [facility] Last Admin: 03/01/18 08:12 Dose: 10 mg Aspirin (Aspirin Ec Low Dose*) 81 mg PO DAILY [facility] Last Admin: 03/01/18 08:14 Dose: 81 mg Heparin Sodium (Porcine) (Heparin Vial(*)) 5,000 units SUBCUT Q8HR [facility] Last Admin: 03/02/18 04:25 Dose: 5,000 units Heparin Sodium (Porcine) (Heparin Flush Picc/Ml/Cvc(*)) 1 - 3 ml FLUSH 0600, 1800 [facility] PRN Reason: Protocol Last Admin: 03/02/18 04:13 Dose: Not Given Hydralazine HCl (Apresoline Iv*) 5 mg IV SLOW PU Q6H PRN PRN Reason: BLOOD PRESSURE Last Admin: 03/01/18 23:27 Dose: 5 mg Potassium Chloride/Dextrose (D5w Ns 0.9% 20meq Kcl 1000 Ml*) 1,000 mls @ 50 mls /hr IV PER RATE [facility] Last Admin: 03/02/18 06:06 Dose: 50 mls/hr Dextrose 500 ml/ Amino Acids 850 ml/ Sterile Water 150 ml/Fat Emulsion Intravenous 250 ml/ Sodium Chloride 100 meq/Potassium Chloride 50 meq/Potassium Phosphate 15 mmole/Calcium Gluconate 15 meq/Magnesium Sulfate 10 meq/ Multivitamins 10 ml/ Trace Metals 1 ml/ Nutrition ( Parenteral) 1,850.721 mls @ 77.113 mls/hr CENTR 1700 [facility] PRN Reason: Protocol Last Admin: 03/01/18 18:33 Dose: 77.113 mls/hr Cefazolin Sodium 1 gm/ IV (Solution) 50 mls @ 200 mls/hr IVPB 0200,1000,1800 [facility] Lactobacillus Rhamnosus (Culturelle*) 1 cap PO BID [facility] Last Admin: 03/01/18 21:09 Dose: 1 cap Metoprolol Tartrate (Lopressor Tab*) 50 mg PO BID [facility] Metronidazole (Flagyl Tab*) 500 mg PO BID [facility] Last Admin: 03/01/18 21:10 Dose: 500 mg Mirtazapine (Remeron Tab*) 7.5 mg PO BEDTIME [facility] Last Admin: 03/01/18 21:10 Dose: 7.5 mg Morphine Sulfate (Morphine Vial*) 4 mg IV Q4H PRN PRN Reason: SEVERE PAIN Last Admin: 03/01/18 10:51 Dose: 4 mg Oxycodone HCl (Oxycontin(*)) 20 mg PO Q12HR [facility] Last Admin: 03/01/18 21:11 Dose: 20 mg Oxycodone HCl (Roxycodone Tab*) 10 mg PO Q4H PRN PRN Reason: PAIN Last Admin: 03/01/18 08:13 Dose: 10 mg Sertraline HCl (Zoloft*) 25 mg PO DAILY [facility] Last Admin: 03/01/18 08:14 Dose: 25 mg Thiamine HCl (Vitamin B-1 Tab*) 100 mg PO DAILY [facility] Last Admin: 03/01/18 08:14 Dose: 100 mg Vital Signs - 8 hr 03/02/18 03/02/18 03:23 07:09 Temperature 98.0 F 98.1 F Pulse Rate 93 84 Respiratory 16 18 Rate Blood Pressure 168/105 172/78 (mmHg) O2 Sat by Pulse 100 99 Oximetry Oxygen Devices in Use Now: None Appearance: Alert, lying on his L side. In fair spirits. Looks comfortable. Eyes: No Scleral Icterus Extremities: No Edema, No Clubbing, Cyanosis, - Skin: No Rash or Ulcers, No Nodules or Sclerosis, - Neurological: Alert and Oriented x 3, NL Sensation Result Diagrams: 02/27/18 06:28 03/02/18 06:00 Additional Lab and Data: Lab Results 02/23/18 02/23/18 02/23/18 Range/Units 03:10 03:10 03:10 WBC 18.1 H (3.5-10.8) 10^3/ul RBC 3.58 L (4.0-5.4) 10^6/ul Hgb 9.6 L (14.0-18.0) g/dl Hct 29 L (42-52) % MCV 82 (80-94) fL MCH 27 (27-31) pg MCHC 33 (31-36) g/dl RDW 15 (10.5-15) % Plt Count 432 (150-450) 10^3/ul MPV 8.7 (7.4-10.4) um3 Neut % (Auto) 88.6 H (38-83) % Lymph % (Auto) 3.7 L (25-47) % Cabell % (Auto) 7.3 H (0-7) % Eos % (Auto) 0.1 (0-6) % Baso % (Auto) 0.3 (0-2) % Absolute Neuts (auto) 16.0 H (1.5-7.7) 10^3/ul Absolute Lymphs (auto) 0.7 L (1.0-4.8) 10^3/ul Absolute Monos (auto) 1.3 H (0-0.8) 10^3/ul Absolute Eos (auto) 0 (0-0.6) 10^3/ul Absolute Basos (auto) 0.1 (0-0.2) 10^3/ul Absolute Nucleated RBC 0 10^3/ul Nucleated RBC % 0 INR (Anticoag Therapy) (0.77-1.02) Sodium 137 (133-145) mmol/L Potassium 3.3 L (3.5-5.0) mmol/L Chloride 101 (101-111) mmol/L Carbon Dioxide 25 (22-32) mmol/L Anion Gap 11 (2-11) mmol/L BUN 61 H (6-24) mg/dL Creatinine 1.67 H (0.67-1.17) mg/dL Est GFR ( Amer) 53.0 (>60) Est GFR (Non-Af Amer) 41.2 (>60) BUN/Creatinine Ratio 36.5 H (8-20) Glucose 133 H (70-100) mg/dL Lactic Acid 1.0 (0.5-2.0) mmol/L Calcium 10.1 (8.6-10.3) mg/dL Magnesium 2.1 (1.9-2.7) mg/dL Total Bilirubin 0.40 (0.2-1.0) mg/dL AST 34 (13-39) U/L ALT 23 (7-52) U/L Alkaline Phosphatase 84 (34-104) U/L Troponin I 0.04 H* (<0.04) ng/mL Total Protein 7.8 (6.4-8.9) g/dL Albumin 2.9 L (3.2-5.2) g/dL Globulin 4.9 H (2-4) g/dL Albumin/Globulin Ratio 0.6 L (1-3) 02/23/18 02/23/18 Range/Units 03:10 06:40 WBC (3.5-10.8) 10^3/ul RBC (4.0-5.4) 10^6/ul Hgb (14.0-18.0) g/dl Hct (42-52) % MCV (80-94) fL MCH (27-31) pg MCHC (31-36) g/dl RDW (10.5-15) % Plt Count (150-450) 10^3/ul MPV (7.4-10.4) um3 Neut % (Auto) (38-83) % Lymph % (Auto) (25-47) % Cabell % (Auto) (0-7) % Eos % (Auto) (0-6) % Baso % (Auto) (0-2) % Absolute Neuts (auto) (1.5-7.7) 10^3/ul Absolute Lymphs (auto) (1.0-4.8) 10^3/ul Absolute Monos (auto) (0-0.8) 10^3/ul Absolute Eos (auto) (0-0.6) 10^3/ul Absolute Basos (auto) (0-0.2) 10^3/ul Absolute Nucleated RBC 10^3/ul Nucleated RBC % INR (Anticoag Therapy) 1.26 H (0.77-1.02) Sodium (133-145) mmol/L Potassium (3.5-5.0) mmol/L Chloride (101-111) mmol/L Carbon Dioxide (22-32) mmol/L Anion Gap (2-11) mmol/L BUN (6-24) mg/dL Creatinine (0.67-1.17) mg/dL Est GFR ( Amer) (>60) Est GFR (Non-Af Amer) (>60) BUN/Creatinine Ratio (8-20) Glucose (70-100) mg/dL Lactic Acid (0.5-2.0) mmol/L Calcium (8.6-10.3) mg/dL Magnesium (1.9-2.7) mg/dL Total Bilirubin (0.2-1.0) mg/dL AST (13-39) U/L ALT (7-52) U/L Alkaline Phosphatase (34-104) U/L Troponin I 0.03 (<0.04) ng/mL Total Protein (6.4-8.9) g/dL Albumin (3.2-5.2) g/dL Globulin (2-4) g/dL Albumin/Globulin Ratio (1-3) Microbiology and Other Data: Microbiology 02/23/18 14:45 Gram Stain - Final Hip Right 02/23/18 10:55 Nasal Screen MRSA (PCR)([facility]) - Final Nasal Mrsa Not Detected 02/23/18 10:00 Skin and Soft Tissue MRSA/MSSA (PCR - Final Hip Right Mrsa Negative S.aureus Negative Gram Stain - Final Assess/Plan/Problems-Billing Mr Travis is a 67 yo M who has a h/o CAD, HTN, HLD, chronic hip/leg pain who presented to the ER with fever and increased drainage from a R lateral hip decubitus ulcer and was found to be severely septic secondary to the infected decubitus. - Patient Problems (1) Decubitus ulcer, unstageable with infection Current Visit: Yes Status: Resolved Code(s): L89.95 - PRESSURE ULCER OF UNSPECIFIED SITE, UNSTAGEABLE; L08.9 - LOCAL INFECTION OF THE SKIN AND SUBCUTANEOUS TISSUE, UNSP SNOMED Code(s): 4713894 Comment: CT pelvis done w/o e/o enterocutaneous fistula Continue zosyn. Continue general surgery debridement as needed and packing He continues to have copious drainage from the wound. CRP down to 74.74 03/01/18. (2) HTN (hypertension) Current Visit: Yes Status: Acute Code(s): I10 - ESSENTIAL (PRIMARY) HYPERTENSION SNOMED Code(s): 98662223 Comment: Increased amlodipine to 10mg daily 02/26. Increase metoprolol to 50 mg bid AM 03/02/18. (3) Severe protein-calorie malnutrition Current Visit: Yes Status: Acute Code(s): E43 - UNSPECIFIED SEVERE PROTEIN- CALORIE MALNUTRITION SNOMED Code(s): 335757224 Comment: prealbulin <3 poor PO intake TPN started 03/01. (4) Diarrhea Current Visit: Yes Status: Acute Code(s): R19.7 - DIARRHEA, UNSPECIFIED SNOMED Code(s): 76486957 Comment: Maybe antibiotic related, will discuss with Dr. Acuna. Flexiseal came out AM 4/3. Dr. Mckinney to consult.
[2018-03-02] MEDS: Metoprolol Tartrate TAB* 25 MG PO SCH ×2 (10:30→20:56)
[2018-03-02] MEDS: amLODIPine TAB* 5 MG PO SCH (10:34)
[2018-03-02] MEDS: Sertraline* 25 MG TAB PO SCH (10:37)
[2018-03-02] MEDS: oxyCODONE SR TAB(*) 20 MG TAB.SR PO SCH ×2 (10:37→20:56)
[2018-03-02] MEDS: Lactobacillus Acidophilu (GG)* 1 CAP CAP PO SCH ×2 (10:37→20:56)
[2018-03-02] MEDS: Thiamine TAB* 100 MG TAB PO SCH (10:37)
[2018-03-02] MEDS: metroNIDAZOLE TAB* 250 MG PO SCH ×2 (10:37→20:56)
[2018-03-02] MEDS: Aspirin EC TAB* 81 MG TAB.EC PO SCH (10:37)
--- NOTE | 2018-03-02 16:23 | PN ---
Progress Note - Progress Note Date of Service: 03/02/18 Note: I spoke to his daughter Chiquis ([phone]) who is his HCP. I updated her on his condition. She stated she will be in the hospital to visit him 03/03.
[2018-03-02] MEDS ORDERED: TPN CENTRAL STANDARD BASE A CENTR SCH ×13 (17:00)
--- NOTE | 2018-03-02 17:02 | PN ---
Progress Note - Progress Note Date of Service: 03/02/18 Note: I spoke to his sister Donna ([phone]) and updated her on his condition.
[2018-03-02] MEDS: oxyCODONE TAB* 5 MG TAB PO PRN (18:05)
[2018-03-02] MEDS: OLANzapine TAB* 2.5 MG PO SCH (20:56)
[2018-03-02] MEDS: Mirtazapine TAB* 15 MG PO SCH (20:56)
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
--- NOTE | 2018-03-02 22:49 | CONS ---
GASTROENTEROLOGY CONSULT: DATE: 03/02/18 CONSULTING PHYSICIAN: Selwyn Eubanks REASON FOR CONSULTATION: Loose stools, incontinence, and general soiling problem connected to right hip decubitus ulcer. HISTORY: This 67-year-old retired disabled former [place] [employer] was admitted from [facility] 6 days ago with sepsis from an infected right decubitus ulcer. The report from the retirement was that he was constipated. Here the experience seemed to be more that he had diarrhea. An appliance was applied. It was capturing most of the loose stool. His antibiotics had been adjusted. He has not been given antiperistaltics fearing that might worsen his general status. He has had no abdominal imaging. Stool studies are negative for C. diff. He does seem to be able to eat. He denies any trouble with acid indigestion, heartburn, or vomiting. He has never had any abdominal surgery. He has been placed on TPN. PAST MEDICAL HISTORY: 1. Chronic right hip arthropathy. 2. Right hip decubitus ulcer. 3. Coronary artery disease, status post DC in 1993 without intervention. 4. Hypertension. MEDICATIONS: 1. IV cephalosporin. 2. Pain medicine. 3. TPN. 4. He had been on Zosyn. SOCIAL HISTORY: He has a sister in the area. The nurse assigned to him the last 2 days reports no visitors. REVIEW OF SYSTEMS: He had been chronically on narcotics at home. He says his bowel pattern was daily or every other day. He did not suffer from incontinence in the past. He has never had any abdominal surgery or indeed any surgery at all. He has never had a colonoscopy. There is no history of palpitations, syncope, TB, lung abscess. He quit smoking passively as he could no longer obtain it. No history of renal stones or renal masses. He has had no abdominal imaging in our current database, which is 5-1/2 years old. PHYSICAL EXAMINATION: He is a slender man in bed. Alert, watching TV, and tending to items on his bedside table. He seems alert, conversant, able to answer simple questions, though later it is found that he has on an adult diaper is lying in a moderate sized pool of thick sludgy stool. It is not really runny diarrhea. He had not made any comment about this and seems oddly passive about it. He is afebrile. HEENT exam shows no icterus. There is no adenopathy. His lungs are clear. Heart sounds are regular. The abdomen is symmetric, firm with normal bowel sounds and nontender. Perianal inspection shows fecal soiling. Digital rectal shows normal sphincter tone and smooth mucosa. There is no blood in the material passed. LABORATORY DATA: Trends over the last couple of years show declining hemoglobin , declining MCV, and declining albumin, all reflecting chronic disease kicking in over the last 6 months. IMPRESSION: Fecal abnormalities that seem to be a combination of probably his diet, antibiotics (though not C. diff), and an unusual passive behavioral pattern or decision making pattern that he has adopted. When I came in the room , he was aware he was sitting in a pool of feces that had been there for over 2 hours and yet made no mention of it. As he does not have C. diff and does not have abdominal distention, nonspecific attempts to thicken up the stool and modify this would be appropriate. He could be given Fibercon and 1 Imodium a day. Hopefully, he can be retrained to be more responsive. Neurologically, he appears able to handle things a little better than he is doing currently. [id number]/[facility] #: [id number] [facility] HOSPITALLibertad
[2018-03-03] MEDS: CEFAZOLIN IVPB SCH ×3 (02:29→17:55)
[2018-03-03] MEDS: hydrALAZINE IV* 20 MG/ML VIAL IV SLOW PU PRN (03:27)
[2018-03-03] MEDS: Heparin VIAL(*) 5000 UNITS/ML VIAL (FIVE THOUSAND) SUBCUT SCH ×3 (04:35→21:26)
[2018-03-03 06:18] LABS: EGFR Non-African American 85.3 (>60)
--- NOTE | 2018-03-03 09:43 | RAD ---
Indication: Chronic diarrhea. Sepsis. Decubitus ulcer. Comparison: February 25, 2018 CT pelvis. Technique: Supine and LEFT lateral views abdomen views. Report: Clear visualized lung bases. No radiographic evidence for free air. Unremarkable bowel gas pattern. No significant retained stool evident within the colon. No suspicious calcifications or mass effect evident. Leftward rotation with the patient's RIGHT thigh overlying the lower pelvis limits image quality at the pelvis. Unremarkable soft tissue contours. Advanced arthropathy of the bilateral hips. IMPRESSION: No acute abdominal pelvic pathologic process evident.
--- NOTE | 2018-03-03 10:15 | PN ---
Progress Note - Progress Note Date of Service: 03/03/18 SOAP: Subjective: CC: hip wound HPI: 67 year old man with chronic right hip wound and baseline contractures; admitted with decr mental status and purulent drainage from wound which has been debrided. Hip is painful, less drainage. No fever or rash. Significant liquid stool, he is not sure how long he has had it; rectal tube. Objective: [] Vital Signs Temp 36.6 C 03/03/18 03:14 Pulse 98 03/03/18 09:53 Resp 20 03/03/18 09:53 BP 154/96 03/03/18 09:53 Pulse Ox 96 03/03/18 09:53 Intake & Output 03/02/18 03/03/18 03/03/18 18:59 06:59 18:59 Intake Total 1379 919 Output Total 1100 Balance 1379 -181 Weight 130 lb 6.4 oz Intake: IV Fluids 310 [id number] 310 IVPB 100 65 Cefazolin 100 65 TPN/PPN 919 744 Oral 50 110 Output: Bal[place] 1100 Other: # Bowel Movements 1 Estimated Stool Amount Small Gen:awake, no distress Neuro:alert, Ox3 HEENT:no thrush CV: no murmur Pulm: CTA BL Abd:+BS NTND soft Skin: no rash MSK: lateral hip wound, no surrounding erythema Laboratory Results - last 24 hr 03/02/18 03/02/18 03/02/18 12:48 16:55 20:36 Sodium Potassium Chloride Carbon Dioxide Anion Gap BUN Creatinine Est GFR ( Amer) Est GFR (Non-Af Amer) BUN/Creatinine Ratio Glucose POC Glucose (mg/dL) 147 H 150 H 149 H Calcium Phosphorus Magnesium Total Bilirubin AST ALT Alkaline Phosphatase Total Protein Albumin Globulin Albumin/Globulin Ratio Prealbumin Triglycerides Cholesterol 03/03/18 03/03/18 03/03/18 00:39 04:29 04:35 Sodium Cancelled Potassium Cancelled Chloride Cancelled Carbon Dioxide Cancelled Anion Gap Cancelled BUN Cancelled Creatinine Cancelled Est GFR ( Amer) Cancelled Est GFR (Non-Af Amer) Cancelled BUN/Creatinine Ratio Cancelled Glucose Cancelled POC Glucose (mg/dL) 145 H 137 H Calcium Cancelled Phosphorus Cancelled Magnesium Cancelled Total Bilirubin Cancelled AST Cancelled ALT Cancelled Alkaline Phosphatase Cancelled Total Protein Cancelled Albumin Cancelled Globulin Cancelled Albumin/Globulin Ratio Cancelled Prealbumin Cancelled Triglycerides Cancelled Cholesterol Cancelled 03/03/18 03/03/18 05:46 07:55 Sodium 134 L Potassium 4.2 Chloride 104 Carbon Dioxide 21 L Anion Gap 9 BUN 20 Creatinine 0.89 Est GFR ( Amer) 109.7 Est GFR (Non-Af Amer) 85.3 BUN/Creatinine Ratio 22.5 H Glucose 110 H POC Glucose (mg/dL) 145 H Calcium 9.9 Phosphorus 2.6 Magnesium 1.8 L Total Bilirubin 0.20 AST 24 ALT 17 Alkaline Phosphatase 54 Total Protein 7.6 Albumin 2.9 L Globulin 4.7 H Albumin/Globulin Ratio 0.6 L Prealbumin Triglycerides 88 Cholesterol 143 Assessment: 1. chronic non pressure related right hip wound overlying prox femur; chronic osteomyelitis; org from wound raised concern for bowel fistula which was not detected by CT imaging 2. diarrhea; could be due to zosyn 3. CAD 3. right knee contracture Plan: 1. continue ancef 1 gm IV Q8hrs and flagyl 500 mg po BID (ordered), day with weekly cbc, cmp, crp 2. Given his immobility and contractures I do not think pursuing evaluation and washout of right hip will change his functional status Discussed with Dr Eubanks
[2018-03-03] MEDS ORDERED: PREMIX* 0 ML ONE (10:17)
[2018-03-03] MEDS: oxyCODONE SR TAB(*) 20 MG TAB.SR PO SCH ×2 (10:21→20:14)
[2018-03-03] MEDS: Sertraline* 25 MG TAB PO SCH (10:22)
[2018-03-03] MEDS: Aspirin EC TAB* 81 MG TAB.EC PO SCH (10:22)
[2018-03-03] MEDS: Thiamine TAB* 100 MG TAB PO SCH (10:22)
[2018-03-03] MEDS: Loperamide CAP* 2 MG PO SCH (10:22)
[2018-03-03] MEDS: Lactobacillus Acidophilu (GG)* 1 CAP CAP PO SCH ×2 (10:23→20:14)
[2018-03-03] MEDS: amLODIPine TAB* 5 MG PO SCH (10:23)
[2018-03-03] MEDS: metroNIDAZOLE TAB* 250 MG PO SCH ×2 (10:24→20:12)
[2018-03-03] MEDS: Metoprolol Tartrate TAB* 25 MG PO SCH ×2 (10:24→20:16)
[2018-03-03] MEDS: Calcium Polycarbophil TAB* 625 MG PO SCH ×2 (10:49→20:14)
--- NOTE | 2018-03-03 12:00 | PN ---
Progress Note - Progress Note Date of Service: 03/03/18 SOAP: Subjective: Without complaint today Still with poor appetite Objective: Temp Pulse Resp BP Pulse Ox 97.9 F 98 20 154/96 96 03/03/18 03:14 03/03/18 09:53 03/03/18 10:22 03/03/18 09:53 03/03/18 09:53 PEX: Right hip ulcer is condenser cleaner with minimal serosanguinous drainage. No odor. Trochanter is exposed with overlying fascia intact. Undermining about the same. No pus or non-viable tissue noted. Assessment: Stage 4 right hip pressure ulcer Malnutrition Plan: TPN IV antibiotics The ulcer is now probably ready for a wound VAC placement. Not certain of his disposition but will need outpatient arrangements if this is placed and he can be seen in the wound center. Will discuss with hospitalist. Present wet to dry dressing regimen is working quite well and has been very effective and I'm not sure this is a significant advantage to the wound vac at this point.
--- NOTE | 2018-03-03 13:47 | PN ---
Subjective Date of Service: 03/03/18 Interval History: No c/o. Objective Active Medications: Acetaminophen (Tylenol Tab*) 650 mg PO Q6H PRN PRN Reason: FEVER/PAIN Amlodipine Besylate (Norvasc Tab*) 10 mg PO DAILY [facility] Last Admin: 03/03/18 10:23 Dose: 10 mg Aspirin (Aspirin Ec Low Dose*) 81 mg PO DAILY [facility] Last Admin: 03/03/18 10:22 Dose: 81 mg Calcium Polycarbophil (Fibercon Tab*) 625 mg PO BID [facility] Last Admin: 03/03/18 10:49 Dose: 625 mg Heparin Sodium (Porcine) (Heparin Vial(*)) 5,000 units SUBCUT Q8HR [facility] Last Admin: 03/03/18 04:35 Dose: 5,000 units Heparin Sodium (Porcine) (Heparin Flush Picc/Ml/Cvc(*)) 1 - 3 ml FLUSH 0600, 1800 [facility] PRN Reason: Protocol Last Admin: 03/03/18 04:34 Dose: 1 ml Hydralazine HCl (Apresoline Iv*) 5 mg IV SLOW PU Q6H PRN PRN Reason: BLOOD PRESSURE Last Admin: 03/03/18 03:27 Dose: 5 mg Cefazolin Sodium 1 gm/ IV (Solution) 50 mls @ 200 mls/hr IVPB 0200,1000,1800 [facility] Last Admin: 03/03/18 10:26 Dose: 200 mls/hr Dextrose 500 ml/ Amino Acids 1 ,275 ml/ Sterile Water 225 ml/Fat Emulsion Intravenous 250 ml/ Sodium Chloride 100 meq/Potassium Chloride 50 meq/Potassium Phosphate 15 mmole/Calcium Gluconate 15 meq/Magnesium Sulfate 10 meq/ Multivitamins 10 ml/ Trace Metals 1 ml/ Phytonadione 0.2 mg/ Nutrition ( Parenteral) 2,350.821 mls @ 97.951 mls/hr CENTR 1700 [facility] PRN Reason: Protocol Lactobacillus Rhamnosus (Culturelle*) 1 cap PO BID [facility] Last Admin: 03/03/18 10:23 Dose: 1 cap Loperamide HCl (Imodium Cap*) 2 mg PO QAM [facility] Last Admin: 03/03/18 10:22 Dose: 2 mg Metoprolol Tartrate (Lopressor Tab*) 50 mg PO BID [facility] Last Admin: 03/03/18 10:24 Dose: 50 mg Metronidazole (Flagyl Tab*) 500 mg PO BID [facility] Last Admin: 03/03/18 10:24 Dose: 500 mg Mirtazapine (Remeron Tab*) 15 mg PO BEDTIME [facility] Last Admin: 03/02/18 20:56 Dose: 15 mg Olanzapine (Zyprexa Tab*) 2.5 mg PO BEDTIME [facility] Last Admin: 03/02/18 20:56 Dose: 2.5 mg Oxycodone HCl (Oxycontin(*)) 20 mg PO Q12HR [facility] Last Admin: 03/03/18 10:21 Dose: 20 mg Oxycodone HCl (Roxycodone Tab*) 10 mg PO Q4H PRN PRN Reason: PAIN Last Admin: 03/02/18 18:05 Dose: 10 mg Sertraline HCl (Zoloft*) 25 mg PO DAILY [facility] Last Admin: 03/03/18 10:22 Dose: 25 mg Thiamine HCl (Vitamin B-1 Tab*) 100 mg PO DAILY [facility] Last Admin: 03/03/18 10:22 Dose: 100 mg Vital Signs - 8 hr 03/03/18 03/03/18 03/03/18 07:41 08:26 09:53 Pulse Rate 100 98 Respiratory 30 20 Rate Blood Pressure 171/102 170/110 154/96 (mmHg) O2 Sat by Pulse 97 96 Oximetry 03/03/18 03/03/18 03/03/18 10:21 10:22 12:40 Pulse Rate Respiratory 20 20 18 Rate Blood Pressure (mmHg) O2 Sat by Pulse Oximetry Oxygen Devices in Use Now: None Appearance: Alert, partly on L side in bed. Neutral affect. Looks comfortable. Eyes: No Scleral Icterus Extremities: No Edema, No Clubbing, Cyanosis, - Skin: No Nodules or Sclerosis, - - Deep ulcer R hip bandaged. Stage I-II ulcer over L greater trochanter. Neurological: NL Sensation, - - marked contractures both LE's. No tremor. Result Diagrams: 02/27/18 06:28 03/03/18 05:46 Additional Lab and Data: Lab Results 02/23/18 02/23/18 02/23/18 Range/Units 03:10 03:10 03:10 WBC 18.1 H (3.5-10.8) 10^3/ul RBC 3.58 L (4.0-5.4) 10^6/ul Hgb 9.6 L (14.0-18.0) g/dl Hct 29 L (42-52) % MCV 82 (80-94) fL MCH 27 (27-31) pg MCHC 33 (31-36) g/dl RDW 15 (10.5-15) % Plt Count 432 (150-450) 10^3/ul MPV 8.7 (7.4-10.4) um3 Neut % (Auto) 88.6 H (38-83) % Lymph % (Auto) 3.7 L (25-47) % [place] % (Auto) 7.3 H (0-7) % Eos % (Auto) 0.1 (0-6) % Baso % (Auto) 0.3 (0-2) % Absolute Neuts (auto) 16.0 H (1.5-7.7) 10^3/ul Absolute Lymphs (auto) 0.7 L (1.0-4.8) 10^3/ul Absolute Monos (auto) 1.3 H (0-0.8) 10^3/ul Absolute Eos (auto) 0 (0-0.6) 10^3/ul Absolute Basos (auto) 0.1 (0-0.2) 10^3/ul Absolute Nucleated RBC 0 10^3/ul Nucleated RBC % 0 INR (Anticoag Therapy) (0.77-1.02) Sodium 137 (133-145) mmol/L Potassium 3.3 L (3.5-5.0) mmol/L Chloride 101 (101-111) mmol/L Carbon Dioxide 25 (22-32) mmol/L Anion Gap 11 (2-11) mmol/L BUN 61 H (6-24) mg/dL Creatinine 1.67 H (0.67-1.17) mg/dL Est GFR ( Amer) 53.0 (>60) Est GFR (Non-Af Amer) 41.2 (>60) BUN/Creatinine Ratio 36.5 H (8-20) Glucose 133 H (70-100) mg/dL Lactic Acid 1.0 (0.5-2.0) mmol/L Calcium 10.1 (8.6-10.3) mg/dL Magnesium 2.1 (1.9-2.7) mg/dL Total Bilirubin 0.40 (0.2-1.0) mg/dL AST 34 (13-39) U/L ALT 23 (7-52) U/L Alkaline Phosphatase 84 (34-104) U/L Troponin I 0.04 H* (<0.04) ng/mL Total Protein 7.8 (6.4-8.9) g/dL Albumin 2.9 L (3.2-5.2) g/dL Globulin 4.9 H (2-4) g/dL Albumin/Globulin Ratio 0.6 L (1-3) 02/23/18 02/23/18 Range/Units 03:10 06:40 WBC (3.5-10.8) 10^3/ul RBC (4.0-5.4) 10^6/ul Hgb (14.0-18.0) g/dl Hct (42-52) % MCV (80-94) fL MCH (27-31) pg MCHC (31-36) g/dl RDW (10.5-15) % Plt Count (150-450) 10^3/ul MPV (7.4-10.4) um3 Neut % (Auto) (38-83) % Lymph % (Auto) (25-47) % [place] % (Auto) (0-7) % Eos % (Auto) (0-6) % Baso % (Auto) (0-2) % Absolute Neuts (auto) (1.5-7.7) 10^3/ul Absolute Lymphs (auto) (1.0-4.8) 10^3/ul Absolute Monos (auto) (0-0.8) 10^3/ul Absolute Eos (auto) (0-0.6) 10^3/ul Absolute Basos (auto) (0-0.2) 10^3/ul Absolute Nucleated RBC 10^3/ul Nucleated RBC % INR (Anticoag Therapy) 1.26 H (0.77-1.02) Sodium (133-145) mmol/L Potassium (3.5-5.0) mmol/L Chloride (101-111) mmol/L Carbon Dioxide (22-32) mmol/L Anion Gap (2-11) mmol/L BUN (6-24) mg/dL Creatinine (0.67-1.17) mg/dL Est GFR ( Amer) (>60) Est GFR (Non-Af Amer) (>60) BUN/Creatinine Ratio (8-20) Glucose (70-100) mg/dL Lactic Acid (0.5-2.0) mmol/L Calcium (8.6-10.3) mg/dL Magnesium (1.9-2.7) mg/dL Total Bilirubin (0.2-1.0) mg/dL AST (13-39) U/L ALT (7-52) U/L Alkaline Phosphatase (34-104) U/L Troponin I 0.03 (<0.04) ng/mL Total Protein (6.4-8.9) g/dL Albumin (3.2-5.2) g/dL Globulin (2-4) g/dL Albumin/Globulin Ratio (1-3) Microbiology and Other Data: Microbiology 02/23/18 14:45 Gram Stain - Final Hip Right 02/23/18 10:55 Nasal Screen MRSA (PCR)([facility]) - Final Nasal Mrsa Not Detected 02/23/18 10:00 Skin and Soft Tissue MRSA/MSSA (PCR - Final Hip Right Mrsa Negative S.aureus Negative Gram Stain - Final Assess/Plan/Problems-Billing Mr Travis is a 67 yo M who has a h/o CAD, HTN, HLD, chronic hip/leg pain who presented to the ER with fever and increased drainage from a R lateral hip decubitus ulcer and was found to be severely septic secondary to the infected decubitus. - Patient Problems (1) Decubitus ulcer, unstageable with infection Current Visit: Yes Status: Resolved Code(s): L89.95 - PRESSURE ULCER OF UNSPECIFIED SITE, UNSTAGEABLE; L08.9 - LOCAL INFECTION OF THE SKIN AND SUBCUTANEOUS TISSUE, UNSP SNOMED Code(s): 0157680 Comment: CT pelvis done w/o e/o enterocutaneous fistula Continue cefazsolin and metronidazole. Continue general surgery debridement as needed and packing He continues to have copious drainage from the wound. CRP down to 74.74 03/01/18. (2) HTN (hypertension) Current Visit: Yes Status: Acute Code(s): I10 - ESSENTIAL (PRIMARY) HYPERTENSION SNOMED Code(s): 75251750 Comment: Increased amlodipine to 10mg daily 02/26. Increase metoprolol to 50 mg bid AM 03/02/18. Start lisinopril 5 mg daily 2 PM 03/03. (3) Severe protein-calorie malnutrition Current Visit: Yes Status: Acute Code(s): E43 - UNSPECIFIED SEVERE PROTEIN- CALORIE MALNUTRITION SNOMED Code(s): 823357261 Comment: prealbulin <3 poor PO intake TPN started 03/01. Calorie counts ordered 03/03. I left message for Chiquis to call me back. Consider converting to PEG tube. Not clear what family would want or if they understand the seriousness of his condition. (4) Diarrhea Current Visit: Yes Status: Acute Code(s): R19.7 - DIARRHEA, UNSPECIFIED SNOMED Code(s): 36866781 Comment: Maybe antibiotic related, will discuss with Dr. Acuna. Flexiseal came out AM 03/02. Dr. Mckinney's consult appreciated. Started polycarbophil and loperamide 03/02. (5) Psychiatric diagnosis Current Visit: Yes Status: Acute Code(s): F99 - MENTAL DISORDER, NOT OTHERWISE SPECIFIED SNOMED Code(s): 68976773 Comment: Psychiatry consult appreciated. Started olanzapine and increased dose of mirtazapine 03/02.
[2018-03-03] MEDS: Lisinopril TAB* 5 MG PO SCH (14:31)
[2018-03-03] MEDS: DEXTROSE CENTR SCH ×13 (16:50)
[2018-03-03] MEDS: WATER CENTR SCH ×13 (16:50)
[2018-03-03] MEDS: AMINO ACID INFUSION CENTR SCH ×13 (16:50)
[2018-03-03] MEDS: [UNRECOGNIZED DRUG - OTHER] CENTR SCH ×13 (16:50)
[2018-03-03] MEDS: TPN CENTR SCH ×13 (16:50)
[2018-03-03] MEDS: Mirtazapine TAB* 15 MG PO SCH (20:14)
[2018-03-03] MEDS: OLANzapine TAB* 2.5 MG PO SCH (20:14)
[2018-03-04] MEDS: oxyCODONE TAB* 5 MG TAB PO PRN ×2 (00:27→13:49)
[2018-03-04] MEDS: CEFAZOLIN IVPB SCH ×3 (02:07→17:00)
[2018-03-04] MEDS: Heparin VIAL(*) 5000 UNITS/ML VIAL (FIVE THOUSAND) SUBCUT SCH ×3 (05:26→22:15)
[2018-03-04 07:15] LABS: EGFR Non-African American 91.1 (>60)
[2018-03-04] MEDS ORDERED: PREMIX* 0 ML ONE (10:15)
[2018-03-04] MEDS: amLODIPine TAB* 5 MG PO SCH (10:39)
[2018-03-04] MEDS: metroNIDAZOLE TAB* 250 MG PO SCH ×2 (10:39→21:59)
[2018-03-04] MEDS: Lactobacillus Acidophilu (GG)* 1 CAP CAP PO SCH ×2 (10:39→21:59)
[2018-03-04] MEDS: Aspirin EC TAB* 81 MG TAB.EC PO SCH (10:40)
[2018-03-04] MEDS: Thiamine TAB* 100 MG TAB PO SCH (10:40)
[2018-03-04] MEDS: Metoprolol Tartrate TAB* 25 MG PO SCH ×2 (10:40→21:59)
[2018-03-04] MEDS: Loperamide CAP* 2 MG PO SCH (10:40)
[2018-03-04] MEDS: Calcium Polycarbophil TAB* 625 MG PO SCH ×2 (10:41→21:59)
[2018-03-04] MEDS: oxyCODONE SR TAB(*) 20 MG TAB.SR PO SCH ×2 (10:41→21:58)
[2018-03-04] MEDS: Sertraline* 25 MG TAB PO SCH (10:41)
[2018-03-04] MEDS: Lisinopril TAB* 5 MG PO SCH (10:41)
--- NOTE | 2018-03-04 16:50 | PN ---
Subjective Date of Service: 03/04/18 Interval History: Patient was seen and examined at bedside. He has no c/o today. Still has no appetite, seen earlier by Dr. Canela to consider [facility] placement. Family History: Unchanged from Admission Social History: Unchanged from Admission Past Medical History: Unchanged from Admission Objective Active Medications: Acetaminophen (Tylenol Tab*) 650 mg PO Q6H PRN PRN Reason: FEVER/PAIN Amlodipine Besylate (Norvasc Tab*) 10 mg PO DAILY [facility] Last Admin: 03/04/18 10:39 Dose: 10 mg Aspirin (Aspirin Ec Low Dose*) 81 mg PO DAILY [facility] Last Admin: 03/04/18 10:40 Dose: 81 mg Calcium Polycarbophil (Fibercon Tab*) 625 mg PO BID [facility] Last Admin: 03/04/18 10:41 Dose: 625 mg Heparin Sodium (Porcine) (Heparin Vial(*)) 5,000 units SUBCUT Q8HR [facility] Last Admin: 03/04/18 14:10 Dose: 5,000 units Heparin Sodium (Porcine) (Heparin Flush Picc/Ml/Cvc(*)) 1 - 3 ml FLUSH 0600, 1800 [facility] PRN Reason: Protocol Last Admin: 03/04/18 05:25 Dose: 1 ml Hydralazine HCl (Apresoline Iv*) 5 mg IV SLOW PU Q6H PRN PRN Reason: BLOOD PRESSURE Last Admin: 03/03/18 03:27 Dose: 5 mg Cefazolin Sodium 1 gm/ IV (Solution) 50 mls @ 200 mls/hr IVPB 0200,1000,1800 [facility] Last Admin: 03/04/18 10:42 Dose: 200 mls/hr Dextrose 500 ml/ Amino Acids 1 ,275 ml/ Sterile Water 225 ml/Fat Emulsion Intravenous 250 ml/ Sodium Chloride 100 meq/Potassium Chloride 50 meq/Potassium Phosphate 15 mmole/Calcium Gluconate 15 meq/Magnesium Sulfate 10 meq/ Multivitamins 10 ml/ Trace Metals 1 ml/ Phytonadione 0.2 mg/ Nutrition ( Parenteral) 2,350.821 mls @ 97.951 mls/hr CENTR 1700 [facility] PRN Reason: Protocol Last Admin: 03/03/18 16:50 Dose: 97.951 mls/hr Lactobacillus Rhamnosus (Culturelle*) 1 cap PO BID [facility] Last Admin: 03/04/18 10:39 Dose: 1 cap Lisinopril (Prinivil Tab*) 5 mg PO DAILY [facility] Last Admin: 03/04/18 10:41 Dose: 5 mg Loperamide HCl (Imodium Cap*) 2 mg PO QAM [facility] Last Admin: 03/04/18 10:40 Dose: 2 mg Metoprolol Tartrate (Lopressor Tab*) 50 mg PO BID [facility] Last Admin: 03/04/18 10:40 Dose: 50 mg Metronidazole (Flagyl Tab*) 500 mg PO BID [facility] Last Admin: 03/04/18 10:39 Dose: 500 mg Mirtazapine (Remeron Tab*) 15 mg PO BEDTIME [facility] Last Admin: 03/03/18 20:14 Dose: 15 mg Olanzapine (Zyprexa Tab*) 2.5 mg PO BEDTIME [facility] Last Admin: 03/03/18 20:14 Dose: 2.5 mg Oxycodone HCl (Oxycontin(*)) 20 mg PO Q12HR [facility] Last Admin: 03/04/18 10:41 Dose: 20 mg Oxycodone HCl (Roxycodone Tab*) 10 mg PO Q4H PRN PRN Reason: PAIN Last Admin: 03/04/18 13:49 Dose: 10 mg Sertraline HCl (Zoloft*) 25 mg PO DAILY [facility] Last Admin: 03/04/18 10:41 Dose: 25 mg Thiamine HCl (Vitamin B-1 Tab*) 100 mg PO DAILY [facility] Last Admin: 03/04/18 10:40 Dose: 100 mg Vital Signs - 8 hr 03/04/18 03/04/18 03/04/18 10:40 10:41 11:24 Temperature 98.8 F Pulse Rate 93 Respiratory 22 22 20 Rate Blood Pressure 126/71 (mmHg) O2 Sat by Pulse 100 Oximetry 03/04/18 03/04/18 03/04/18 13:49 14:03 14:47 Temperature 97.4 F Pulse Rate 84 Respiratory 14 16 16 Rate Blood Pressure 126/74 (mmHg) O2 Sat by Pulse 100 Oximetry Oxygen Devices in Use Now: None Appearance: Sleeping on his bed, but respond to questions with closed eyes. Appears comfortable. Makes minimal effort to talk or move upper body. Eyes: No Scleral Icterus, PERRLA Ears/Nose/Mouth/Throat: Mucous Membranes Moist Neck: NL Appearance and Movements; NL JVP, Trachea Midline Respiratory: Symmetrical Chest Expansion and Respiratory Effort, Clear to Auscultation Cardiovascular: NL Sounds; No Murmurs; No JVD Abdominal: NL Sounds; No Tenderness; No Distention Extremities: No Edema Lines/Tubes/Other Access: Clean, Dry and Intact [place] Nutrition: Taking PO's, TPN - Poor PO intake Result Diagrams: 02/27/18 06:28 03/04/18 06:30 Additional Lab and Data: Lab Results Assess/Plan/Problems-Billing Mr Travis is a 67 yo M who has a h/o CAD, HTN, HLD, chronic hip/leg pain who presented to the ER with fever and increased drainage from a R lateral hip decubitus ulcer and was found to be severely septic secondary to the infected decubitus. - Patient Problems (1) Severe sepsis Current Visit: Yes (2) Diarrhea Current Visit: Yes Comment: Maybe antibiotic related, will discuss with Dr. Acuna. Flexiseal came out AM 03/02. Dr. Mckinney's consult appreciated. Started polycarbophil and loperamide 03/02. (3) HTN (hypertension) Current Visit: Yes Comment: Increased amlodipine to 10mg daily 02/26. Increase metoprolol to 50 mg bid AM 03/02/18. Start lisinopril 5 mg daily 2 PM 03/03. (4) Psychiatric diagnosis Current Visit: Yes Comment: Psychiatry consult appreciated. Started olanzapine and increased dose of mirtazapine 03/02. (5) Severe protein-calorie malnutrition Current Visit: Yes Comment: prealbulin <3 poor PO intake TPN started 03/01. Calorie counts ordered 03/03. Consider converting to PEG tube. Not clear what family would want or if they understand the seriousness of his condition. I have met his daughter once when he was first admitted. I did ask him if she comes over to visit him, I got no clear answer. (6) Dementia Current Visit: No Comment: I suspect a significant contribution to his poor memory and cognition is his lifelong alcoholism, which only ended about a year ago. I spoke on the phone with his mary jane Sim who is now living with him. She states he thinks she is his sister (who many years ago) and gets other relatives confused. Start thiamine. Add-on B12, syphilis IgG is pending. (7) Osteoarthritis of hips, bilateral Current Visit: No Comment: Start APAP 650 mg tid. Pt refused PT. (8) DNR (do not resuscitate) Current Visit: Yes (9) DVT prophylaxis Current Visit: Yes Comment: SQ heparin Status and Disposition: A 67 y/o male with multiple medical issues, who was admitted with severe sepsis secondary to infected right lateral thigh decubitus ulcer. He is slowly improving, working on improving his nutritional status and optimizing medical care for placement to [facility] facility. I will try to call or talk directly to his daughter to discuss plans of care.
[2018-03-04] MEDS: AMINO ACID INFUSION CENTR SCH ×13 (17:00)
[2018-03-04] MEDS: WATER CENTR SCH ×13 (17:00)
[2018-03-04] MEDS: TPN CENTR SCH ×13 (17:00)
[2018-03-04] MEDS: [UNRECOGNIZED DRUG - OTHER] CENTR SCH ×13 (17:00)
[2018-03-04] MEDS: DEXTROSE CENTR SCH ×13 (17:00)
[2018-03-04] MEDS: Mirtazapine TAB* 15 MG PO SCH (21:59)
[2018-03-04] MEDS: OLANzapine TAB* 2.5 MG PO SCH (21:59)
[2018-03-05] MEDS: CEFAZOLIN IVPB SCH ×3 (02:00→18:38)
[2018-03-05] MEDS: oxyCODONE TAB* 5 MG TAB PO PRN (02:33)
[2018-03-05] MEDS: Heparin VIAL(*) 5000 UNITS/ML VIAL (FIVE THOUSAND) SUBCUT SCH ×3 (05:38→21:21)
[2018-03-05 06:25] LABS: EGFR Non-African American 112.5 (>60)
[2018-03-05] MEDS: Metoprolol Tartrate TAB* 25 MG PO SCH ×2 (10:09→21:17)
[2018-03-05] MEDS: amLODIPine TAB* 5 MG PO SCH (10:10)
[2018-03-05] MEDS: Lactobacillus Acidophilu (GG)* 1 CAP CAP PO SCH ×2 (10:10→21:17)
[2018-03-05] MEDS: metroNIDAZOLE TAB* 250 MG PO SCH ×2 (10:10→21:17)
[2018-03-05] MEDS: Aspirin EC TAB* 81 MG TAB.EC PO SCH (10:10)
[2018-03-05] MEDS: Loperamide CAP* 2 MG PO SCH (10:10)
[2018-03-05] MEDS: Calcium Polycarbophil TAB* 625 MG PO SCH ×2 (10:10→21:17)
[2018-03-05] MEDS: Thiamine TAB* 100 MG TAB PO SCH (10:10)
[2018-03-05] MEDS: Lisinopril TAB* 5 MG PO SCH (10:10)
[2018-03-05] MEDS: Sertraline* 25 MG TAB PO SCH (10:10)
[2018-03-05] MEDS: oxyCODONE SR TAB(*) 20 MG TAB.SR PO SCH ×2 (10:11→21:17)
--- NOTE | 2018-03-05 15:29 | CONSULT ---
Consult Consult: PHYSIATRY CONSULTATION-INPATIENT Nathaniel Travis is a 67 year old. He was at [facility]. He developed a large pressure ulcer from lying on his left side and refusing to allow the staff to turn and position him. He has flexion contractures of both lower extremities. He cannot sit in a wheelchair as a result of the contractures. Prior to November, he was living alone but was having trouble caring for himself. He had fallen at home and was on the floor when found by his sister. He was sent to [facility] following that. He was admitted to [facility] [place] [place] February 23 with the pressure ulcer. I am asked to see for rehab goals. He was malnourished on admission, and is now on TPN. PAST MEDICAL HISTORY: HTN, hyperlipidemia ALLERGIES: NKDA Current Medications Acetaminophen (Tylenol Tab*) 650 mg PO Q6H PRN PRN Reason: FEVER/PAIN Amlodipine Besylate (Norvasc Tab*) 10 mg PO DAILY [facility] Last Admin: 03/05/18 10:10 Dose: 10 mg Aspirin (Aspirin Ec Low Dose*) 81 mg PO DAILY [facility] Last Admin: 03/05/18 10:10 Dose: 81 mg Calcium Polycarbophil (Fibercon Tab*) 625 mg PO BID [facility] Last Admin: 03/05/18 10:10 Dose: 625 mg Heparin Sodium (Porcine) (Heparin Vial(*)) 5,000 units SUBCUT Q8HR [facility] Last Admin: 03/05/18 14:42 Dose: 5,000 units Heparin Sodium (Porcine) (Heparin Flush Picc/Ml/Cvc(*)) 1 - 3 ml FLUSH 0600, 1800 [facility] PRN Reason: Protocol Last Admin: 03/05/18 05:38 Dose: 1 ml Hydralazine HCl (Apresoline Iv*) 5 mg IV SLOW PU Q6H PRN PRN Reason: BLOOD PRESSURE Last Admin: 03/03/18 03:27 Dose: 5 mg Cefazolin Sodium 1 gm/ IV (Solution) 50 mls @ 200 mls/hr IVPB 0200,1000,1800 [facility] Last Admin: 03/05/18 10:21 Dose: 200 mls/hr Dextrose 500 ml/ Amino Acids 1 ,275 ml/ Sterile Water 225 ml/Fat Emulsion Intravenous 250 ml/ Sodium Chloride 100 meq/Potassium Chloride 50 meq/Potassium Phosphate 15 mmole/Calcium Gluconate 15 meq/Magnesium Sulfate 10 meq/ Multivitamins 10 ml/ Trace Metals 1 ml/ Phytonadione 0.2 mg/ Nutrition ( Parenteral) 2,350.821 mls @ 97.951 mls/hr CENTR 1700 [facility] PRN Reason: Protocol Stop: 03/09/18 16:59 Last Admin: 03/04/18 17:00 Dose: 97.951 mls/hr Lactobacillus Rhamnosus (Culturelle*) 1 cap PO BID [facility] Last Admin: 03/05/18 10:10 Dose: 1 cap Lisinopril (Prinivil Tab*) 5 mg PO DAILY [facility] Last Admin: 03/05/18 10:10 Dose: 5 mg Loperamide HCl (Imodium Cap*) 2 mg PO QAM [facility] Last Admin: 03/05/18 10:10 Dose: 2 mg Metoprolol Tartrate (Lopressor Tab*) 50 mg PO BID [facility] Last Admin: 03/05/18 10:09 Dose: 50 mg Metronidazole (Flagyl Tab*) 500 mg PO BID [facility] Last Admin: 03/05/18 10:10 Dose: 500 mg Mirtazapine (Remeron Tab*) 15 mg PO BEDTIME [facility] Last Admin: 03/04/18 21:59 Dose: 15 mg Olanzapine (Zyprexa Tab*) 2.5 mg PO BEDTIME [facility] Last Admin: 03/04/18 21:59 Dose: 2.5 mg Oxycodone HCl (Oxycontin(*)) 20 mg PO Q12HR [facility] Last Admin: 03/05/18 10:11 Dose: 20 mg Oxycodone HCl (Roxycodone Tab*) 10 mg PO Q4H PRN PRN Reason: PAIN Last Admin: 03/05/18 02:33 Dose: 10 mg Sertraline HCl (Zoloft*) 25 mg PO DAILY [facility] Last Admin: 03/05/18 10:10 Dose: 25 mg Thiamine HCl (Vitamin B-1 Tab*) 100 mg PO DAILY [facility] Last Admin: 03/05/18 10:10 Dose: 100 mg SOCIAL HISTORY: was a smoker but unable to smoke at [facility]. Non drinker Laboratory Results - last 24 hr 03/04/18 03/04/18 03/04/18 13:55 15:57 16:35 Sodium Potassium Chloride Carbon Dioxide Anion Gap BUN Creatinine Est GFR ( Amer) Est GFR (Non-Af Amer) BUN/Creatinine Ratio Glucose POC Glucose (mg/dL) 121 H 131 H Calcium Phosphorus Magnesium Total Bilirubin AST ALT Alkaline Phosphatase Total Protein Albumin Globulin Albumin/Globulin Ratio Prealbumin Triglycerides Cholesterol Hep Bs Antigen Nonreactive Hepatitis C Antibody Nonreactive 03/04/18 03/05/18 03/05/18 22:15 00:12 04:21 Sodium Potassium Chloride Carbon Dioxide Anion Gap BUN Creatinine Est GFR ( Amer) Est GFR (Non-Af Amer) BUN/Creatinine Ratio Glucose POC Glucose (mg/dL) 127 H 125 H 144 H Calcium Phosphorus Magnesium Total Bilirubin AST ALT Alkaline Phosphatase Total Protein Albumin Globulin Albumin/Globulin Ratio Prealbumin Triglycerides Cholesterol Hep Bs Antigen Hepatitis C Antibody 03/05/18 03/05/18 03/05/18 05:40 08:16 11:48 Sodium 135 L Potassium 4.3 Chloride 112 H Carbon Dioxide 16 L Anion Gap 7 BUN 33 H Creatinine 0.70 Est GFR ( Amer) 144.7 Est GFR (Non-Af Amer) 112.5 BUN/Creatinine Ratio 47.1 H Glucose 95 POC Glucose (mg/dL) 142 H 144 H Calcium 8.8 Phosphorus 3.0 Magnesium 1.7 L Total Bilirubin 0.20 AST 21 ALT 12 Alkaline Phosphatase 48 Total Protein 5.9 L Albumin 2.4 L Globulin 3.5 Albumin/Globulin Ratio 0.7 L Prealbumin 9 L Triglycerides 56 Cholesterol 115 Hep Bs Antigen Hepatitis C Antibody Vital Signs Temp Pulse Resp BP Pulse Ox 99.0 F 89 15 108/55 100 03/05/18 11:14 03/05/18 11:14 03/05/18 12:30 03/05/18 11:14 03/05/18 11:14 EXAM: LUNGS: Clear HEART: reg rhythm ABDOMEN: Soft EXTREMITIES: Both legs contracted in flexion at the knees. Very little ROM ASSESSMENT: 1. Pressure ulcer, right troch/hip 2. LE Contractures PLAN: At present, he is unable to transfer except by [facility]. Positioning in a wheelchair would be quite difficult. He would likely have to have Botox injection to hamstrings followed by serial casting, but in his current malnourished state, he would develop ulcers in his legs.Agree with TPN. Could try TF via [facility] to get him back to [facility]. Unclear why he refused to get OOB or to turn and position at [facility].
[2018-03-05] MEDS: TPN CENTR SCH ×13 (17:12)
[2018-03-05] MEDS: DEXTROSE CENTR SCH ×13 (17:12)
[2018-03-05] MEDS: AMINO ACID INFUSION CENTR SCH ×13 (17:12)
[2018-03-05] MEDS: WATER CENTR SCH ×13 (17:12)
[2018-03-05] MEDS: [UNRECOGNIZED DRUG - OTHER] CENTR SCH ×13 (17:12)
--- NOTE | 2018-03-05 17:27 | PN ---
Subjective Date of Service: 03/05/18 Interval History: Patient was seen and examined at bedside. He has no new c/o. He is more alert today, carrying on a conversation with no problems. He ate a good lunch per nursing staff. Family History: Unchanged from Admission Social History: Unchanged from Admission Past Medical History: Unchanged from Admission Objective Active Medications: Acetaminophen (Tylenol Tab*) 650 mg PO Q6H PRN PRN Reason: FEVER/PAIN Amlodipine Besylate (Norvasc Tab*) 10 mg PO DAILY [facility] Last Admin: 03/05/18 10:10 Dose: 10 mg Aspirin (Aspirin Ec Low Dose*) 81 mg PO DAILY [facility] Last Admin: 03/05/18 10:10 Dose: 81 mg Calcium Polycarbophil (Fibercon Tab*) 625 mg PO BID [facility] Last Admin: 03/05/18 10:10 Dose: 625 mg Heparin Sodium (Porcine) (Heparin Vial(*)) 5,000 units SUBCUT Q8HR [facility] Last Admin: 03/05/18 14:42 Dose: 5,000 units Heparin Sodium (Porcine) (Heparin Flush Picc/Ml/Cvc(*)) 1 - 3 ml FLUSH 0600, 1800 [facility] PRN Reason: Protocol Last Admin: 03/05/18 05:38 Dose: 1 ml Hydralazine HCl (Apresoline Iv*) 5 mg IV SLOW PU Q6H PRN PRN Reason: BLOOD PRESSURE Last Admin: 03/03/18 03:27 Dose: 5 mg Cefazolin Sodium 1 gm/ IV (Solution) 50 mls @ 200 mls/hr IVPB 0200,1000,1800 [facility] Last Admin: 03/05/18 10:21 Dose: 200 mls/hr Dextrose 500 ml/ Amino Acids 1 ,275 ml/ Sterile Water 225 ml/Fat Emulsion Intravenous 250 ml/ Sodium Chloride 100 meq/Potassium Chloride 50 meq/Potassium Phosphate 15 mmole/Calcium Gluconate 15 meq/Magnesium Sulfate 10 meq/ Multivitamins 10 ml/ Trace Metals 1 ml/ Phytonadione 0.2 mg/ Nutrition ( Parenteral) 2,350.821 mls @ 97.951 mls/hr CENTR 1700 [facility] PRN Reason: Protocol Stop: 03/09/18 16:59 Last Admin: 03/05/18 17:12 Dose: 97.951 mls/hr Lactobacillus Rhamnosus (Culturelle*) 1 cap PO BID [facility] Last Admin: 03/05/18 10:10 Dose: 1 cap Lisinopril (Prinivil Tab*) 5 mg PO DAILY [facility] Last Admin: 03/05/18 10:10 Dose: 5 mg Loperamide HCl (Imodium Cap*) 2 mg PO QAM [facility] Last Admin: 03/05/18 10:10 Dose: 2 mg Metoprolol Tartrate (Lopressor Tab*) 50 mg PO BID [facility] Last Admin: 03/05/18 10:09 Dose: 50 mg Metronidazole (Flagyl Tab*) 500 mg PO BID [facility] Last Admin: 03/05/18 10:10 Dose: 500 mg Mirtazapine (Remeron Tab*) 15 mg PO BEDTIME [facility] Last Admin: 03/04/18 21:59 Dose: 15 mg Olanzapine (Zyprexa Tab*) 2.5 mg PO BEDTIME [facility] Last Admin: 03/04/18 21:59 Dose: 2.5 mg Oxycodone HCl (Oxycontin(*)) 20 mg PO Q12HR [facility] Last Admin: 03/05/18 10:11 Dose: 20 mg Oxycodone HCl (Roxycodone Tab*) 10 mg PO Q4H PRN PRN Reason: PAIN Last Admin: 03/05/18 02:33 Dose: 10 mg Sertraline HCl (Zoloft*) 25 mg PO DAILY [facility] Last Admin: 03/05/18 10:10 Dose: 25 mg Thiamine HCl (Vitamin B-1 Tab*) 100 mg PO DAILY [facility] Last Admin: 03/05/18 10:10 Dose: 100 mg Vital Signs - 8 hr 03/05/18 03/05/18 03/05/18 10:10 10:11 11:14 Temperature 99.0 F Pulse Rate 89 Respiratory 18 18 16 Rate Blood Pressure 108/55 (mmHg) O2 Sat by Pulse 100 Oximetry 03/05/18 03/05/18 12:11 12:30 Temperature Pulse Rate Respiratory 16 15 Rate Blood Pressure (mmHg) O2 Sat by Pulse Oximetry Oxygen Devices in Use Now: None Appearance: Awake, alert and oriented to name only. Laying on bed in contracture posture, in NAD. Eyes: No Scleral Icterus, PERRLA Ears/Nose/Mouth/Throat: Mucous Membranes Moist Neck: NL Appearance and Movements; NL JVP, Trachea Midline Respiratory: Symmetrical Chest Expansion and Respiratory Effort, Clear to Auscultation Cardiovascular: NL Sounds; No Murmurs; No JVD, RRR Abdominal: NL Sounds; No Tenderness; No Distention Extremities: - - Right lateral hip with a clean open wound, undermined to anterior and superior aspect, packing changed. No surrounding erythema or induration. Left hip with a small area of ecchymosis over greater trochanter. Lines/Tubes/Other Access: Clean, Dry and Intact [place] Nutrition: Taking PO's - Better PO intake, TPN Result Diagrams: 02/27/18 06:28 03/05/18 05:40 Additional Lab and Data: Lab Results Microbiology and Other Data: Microbiology 02/23/18 14:45 Gram Stain - Final Hip Right 02/23/18 10:55 Nasal Screen MRSA (PCR)([facility]) - Final Nasal Mrsa Not Detected 02/23/18 10:00 Skin and Soft Tissue MRSA/MSSA (PCR - Final Hip Right Mrsa Negative S.aureus Negative Gram Stain - Final Assess/Plan/Problems-Billing Mr Travis is a 67 yo M who has a h/o CAD, HTN, HLD, chronic hip/leg pain who presented to the ER with fever and increased drainage from a R lateral hip decubitus ulcer and was found to be severely septic secondary to the infected decubitus. - Patient Problems (1) Severe sepsis Current Visit: Yes (2) Diarrhea Current Visit: Yes Comment: Maybe antibiotic related, will discuss with Dr. Acuna. Flexiseal came out AM 03/02. Dr. Mckinney's consult appreciated. Started polycarbophil and loperamide 03/02. (3) HTN (hypertension) Current Visit: Yes Comment: Increased amlodipine to 10mg daily 02/26. Increase metoprolol to 50 mg bid AM 03/02/18. Start lisinopril 5 mg daily 2 PM 03/03. (4) Psychiatric diagnosis Current Visit: Yes Comment: Psychiatry consult appreciated. Started olanzapine and increased dose of mirtazapine 03/02. (5) Severe protein-calorie malnutrition Current Visit: Yes Comment: prealbulin <3 poor PO intake TPN started 03/01. Calorie counts ordered 03/03. Consider converting to PEG tube, or nutrition via NG tube. He appears to have better PO intake today. (6) Dementia Current Visit: No Comment: I suspect a significant contribution to his poor memory and cognition is his lifelong alcoholism, which only ended about a year ago. I spoke on the phone with his mary jane Sim who is now living with him. She states he thinks she is his sister (who many years ago) and gets other relatives confused. Start thiamine. Add-on B12, syphilis IgG is pending. (7) Osteoarthritis of hips, bilateral Current Visit: No Comment: Start APAP 650 mg tid. Pt refused PT. Will try again. (8) DNR (do not resuscitate) Current Visit: Yes (9) DVT prophylaxis Current Visit: Yes Comment: SQ heparin Status and Disposition: A 67 y/o male with multiple medical issues, who was admitted with severe sepsis secondary to infected right lateral thigh decubitus ulcer. He is slowly improving, working on improving his nutritional status and optimizing medical care for placement to [facility] facility. Dr. Canela's consult appreciated. Will continue to discuss placement options.
[2018-03-05] MEDS: OLANzapine TAB* 2.5 MG PO SCH (21:17)
[2018-03-05] MEDS: Mirtazapine TAB* 15 MG PO SCH (21:17)
[2018-03-06] MEDS: oxyCODONE TAB* 5 MG TAB PO PRN ×3 (00:16→21:38)
[2018-03-06] MEDS: CEFAZOLIN IVPB SCH ×4 (02:05→18:16)
[2018-03-06] MEDS: Heparin VIAL(*) 5000 UNITS/ML VIAL (FIVE THOUSAND) SUBCUT SCH ×3 (06:18→21:28)
[2018-03-06 06:58] LABS: EGFR Non-African American 89.9 (>60)
[2018-03-06] MEDS: Sertraline* 25 MG TAB PO SCH (09:48)
[2018-03-06] MEDS: Lactobacillus Acidophilu (GG)* 1 CAP CAP PO SCH ×2 (09:48→21:28)
[2018-03-06] MEDS: Aspirin EC TAB* 81 MG TAB.EC PO SCH (09:48)
[2018-03-06] MEDS: Lisinopril TAB* 5 MG PO SCH (09:48)
[2018-03-06] MEDS: metroNIDAZOLE TAB* 250 MG PO SCH ×2 (09:48→21:27)
[2018-03-06] MEDS: oxyCODONE SR TAB(*) 20 MG TAB.SR PO SCH ×2 (09:49→21:27)
[2018-03-06] MEDS: Loperamide CAP* 2 MG PO SCH (09:49)
[2018-03-06] MEDS: Metoprolol Tartrate TAB* 25 MG PO SCH ×2 (09:49→21:28)
[2018-03-06] MEDS: Thiamine TAB* 100 MG TAB PO SCH (09:49)
[2018-03-06] MEDS: amLODIPine TAB* 5 MG PO SCH (09:50)
[2018-03-06] MEDS: Calcium Polycarbophil TAB* 625 MG PO SCH ×2 (09:50→21:28)
[2018-03-06] MEDS: NS 0.9% 1000 ML* 1,000 ML IV SCH ×2 (12:26→23:19)
--- NOTE | 2018-03-06 14:07 | PN ---
Subjective Date of Service: 03/06/18 Interval History: I was called earlier because patient pulled out his PICC line. He thought his IV line was "not doing anything", so he pulled it out. Denies any pain today. Has been laying on his back. Appetite better, TPN on hold since PICC line was d/ c'ed. He has no c/o today. Family History: Unchanged from Admission Social History: Unchanged from Admission Past Medical History: Unchanged from Admission Objective Active Medications: Acetaminophen (Tylenol Tab*) 650 mg PO Q6H PRN PRN Reason: FEVER/PAIN Amlodipine Besylate (Norvasc Tab*) 10 mg PO DAILY [facility] Last Admin: 03/06/18 09:50 Dose: 10 mg Aspirin (Aspirin Ec Low Dose*) 81 mg PO DAILY [facility] Last Admin: 03/06/18 09:48 Dose: 81 mg Calcium Polycarbophil (Fibercon Tab*) 625 mg PO BID [facility] Last Admin: 03/06/18 09:50 Dose: 625 mg Heparin Sodium (Porcine) (Heparin Vial(*)) 5,000 units SUBCUT Q8HR [facility] Last Admin: 03/06/18 13:28 Dose: 5,000 units Heparin Sodium (Porcine) (Heparin Flush Picc/Ml/Cvc(*)) 1 - 3 ml FLUSH 0600, 1800 [facility] PRN Reason: Protocol Last Admin: 03/06/18 06:18 Dose: 1 ml Hydralazine HCl (Apresoline Iv*) 5 mg IV SLOW PU Q6H PRN PRN Reason: BLOOD PRESSURE Last Admin: 03/03/18 03:27 Dose: 5 mg Cefazolin Sodium 1 gm/ IV (Solution) 50 mls @ 200 mls/hr IVPB 0200,1000,1800 [facility] Last Admin: 03/06/18 12:58 Dose: 200 mls/hr Sodium Chloride (Ns 0.9% 1000 Ml*) 1,000 mls @ 100 mls/hr IV PER RATE [facility] Last Admin: 03/06/18 12:26 Dose: 100 mls/hr Lactobacillus Rhamnosus (Culturelle*) 1 cap PO BID [facility] Last Admin: 03/06/18 09:48 Dose: 1 cap Lisinopril (Prinivil Tab*) 5 mg PO DAILY [facility] Last Admin: 03/06/18 09:48 Dose: 5 mg Loperamide HCl (Imodium Cap*) 2 mg PO QAM [facility] Last Admin: 03/06/18 09:49 Dose: 2 mg Metoprolol Tartrate (Lopressor Tab*) 50 mg PO BID [facility] Last Admin: 03/06/18 09:49 Dose: 50 mg Metronidazole (Flagyl Tab*) 500 mg PO BID [facility] Last Admin: 03/06/18 09:48 Dose: 500 mg Mirtazapine (Remeron Tab*) 15 mg PO BEDTIME [facility] Last Admin: 03/05/18 21:17 Dose: 15 mg Olanzapine (Zyprexa Tab*) 2.5 mg PO BEDTIME [facility] Last Admin: 03/05/18 21:17 Dose: 2.5 mg Oxycodone HCl (Oxycontin(*)) 20 mg PO Q12HR [facility] Last Admin: 03/06/18 09:49 Dose: 20 mg Oxycodone HCl (Roxycodone Tab*) 10 mg PO Q4H PRN PRN Reason: PAIN Last Admin: 03/06/18 13:28 Dose: 10 mg Sertraline HCl (Zoloft*) 25 mg PO DAILY [facility] Last Admin: 03/06/18 09:48 Dose: 25 mg Thiamine HCl (Vitamin B-1 Tab*) 100 mg PO DAILY [facility] Last Admin: 03/06/18 09:49 Dose: 100 mg Vital Signs - 8 hr 03/06/18 03/06/18 03/06/18 07:25 09:49 12:06 Temperature 97.8 F 99.6 F Pulse Rate 84 Respiratory 20 20 Rate Blood Pressure 125/65 (mmHg) O2 Sat by Pulse 100 Oximetry 03/06/18 03/06/18 13:28 13:30 Temperature Pulse Rate Respiratory 20 20 Rate Blood Pressure (mmHg) O2 Sat by Pulse Oximetry Oxygen Devices in Use Now: None Appearance: More alert today, comfortable and in NAD. Eyes: PERRLA Ears/Nose/Mouth/Throat: Mucous Membranes Moist Neck: NL Appearance and Movements; NL JVP, Trachea Midline Respiratory: Symmetrical Chest Expansion and Respiratory Effort, Clear to Auscultation Cardiovascular: NL Sounds; No Murmurs; No JVD, RRR Abdominal: NL Sounds; No Tenderness; No Distention Extremities: - - Wound packing was changed by nursing staff, dressing clean and dry. Wound unchanged from yesterday per Nursing. Lines/Tubes/Other Access: Clean, Dry and Intact [place], Clean, Dry and Intact Peripheral IV, Clean, Dry and Intact PICC Line - pulled out by pt earlier Nutrition: Taking PO's Result Diagrams: 02/27/18 06:28 03/06/18 06:20 Assess/Plan/Problems-Billing Mr Travis is a 67 yo M who has a h/o CAD, HTN, HLD, chronic hip/leg pain who presented to the ER with fever and increased drainage from a R lateral hip decubitus ulcer and was found to be severely septic secondary to the infected decubitus. - Patient Problems (1) Decubitus ulcer Current Visit: Yes Comment: Infected decubitus of right lateral thigh/hip, s/ p I&D then debridement Local wound care Not a good candidate for a wound vac (2) Severe sepsis Current Visit: Yes (3) Diarrhea Current Visit: Yes Comment: Maybe antibiotic related, will discuss with Dr. Acuna. Flexiseal came out AM 03/02. Dr. Mckinney's consult appreciated. Started polycarbophil and loperamide 03/02. (4) HTN (hypertension) Current Visit: Yes Comment: Increased amlodipine to 10mg daily 02/26. Increase metoprolol to 50 mg bid AM 03/02/18. Start lisinopril 5 mg daily 2 PM 03/03. (5) Psychiatric diagnosis Current Visit: Yes Comment: Psychiatry consult appreciated. Started olanzapine and increased dose of mirtazapine 03/02. (6) Severe protein-calorie malnutrition Current Visit: Yes Comment: prealbulin <3 poor PO intake, better past couple of days TPN started 03/01, on hold for now since he pulled out his PICC line (7) Dementia Current Visit: No Comment: I suspect a significant contribution to his poor memory and cognition is his lifelong alcoholism, which only ended about a year ago. I spoke on the phone with his mary jane Sim who is now living with him. She states he thinks she is his sister (who many years ago) and gets other relatives confused. Start thiamine. Add-on B12, syphilis IgG is pending. (8) Osteoarthritis of hips, bilateral Current Visit: No Comment: Start APAP 650 mg tid. Pt refused PT. Will try again. (9) DNR (do not resuscitate) Current Visit: Yes (10) DVT prophylaxis Current Visit: Yes Comment: SQ heparin Status and Disposition: A 67 y/o male with multiple medical issues, who was admitted with severe sepsis secondary to infected right lateral thigh decubitus ulcer. He is slowly improving, working on improving his nutritional status and optimizing medical care for placement to [facility] facility. Dr. Canela's consult appreciated. Will continue to discuss placement options. TPN is on hold, will see if he continues to increase PO intake.
[2018-03-06] MEDS: Morphine INJ* 2 MG/ML 1 ML CARPUJECT IV PRN (18:43)
[2018-03-06] MEDS: Mirtazapine TAB* 15 MG PO SCH (21:27)
[2018-03-06] MEDS: OLANzapine TAB* 2.5 MG PO SCH (21:28)
[2018-03-07] MEDS: CEFAZOLIN IVPB SCH ×3 (04:36→17:58)
[2018-03-07] MEDS: Morphine INJ* 2 MG/ML 1 ML CARPUJECT IV PRN ×3 (04:36→14:03)
[2018-03-07] MEDS: Heparin VIAL(*) 5000 UNITS/ML VIAL (FIVE THOUSAND) SUBCUT SCH ×3 (04:36→21:54)
[2018-03-07] MEDS: Sertraline* 25 MG TAB PO SCH (09:05)
[2018-03-07] MEDS: metroNIDAZOLE TAB* 250 MG PO SCH ×2 (09:05→21:52)
[2018-03-07] MEDS: Loperamide CAP* 2 MG PO SCH (09:06)
[2018-03-07] MEDS: Metoprolol Tartrate TAB* 25 MG PO SCH ×2 (09:06→21:51)
[2018-03-07] MEDS: oxyCODONE SR TAB(*) 20 MG TAB.SR PO SCH ×2 (09:06→21:50)
[2018-03-07] MEDS: Lisinopril TAB* 5 MG PO SCH (09:06)
[2018-03-07] MEDS: amLODIPine TAB* 5 MG PO SCH (09:06)
[2018-03-07] MEDS: Lactobacillus Acidophilu (GG)* 1 CAP CAP PO SCH ×2 (09:07→21:49)
[2018-03-07] MEDS: Thiamine TAB* 100 MG TAB PO SCH (09:07)
[2018-03-07] MEDS: Calcium Polycarbophil TAB* 625 MG PO SCH ×2 (09:07→21:52)
[2018-03-07] MEDS: Aspirin EC TAB* 81 MG TAB.EC PO SCH (09:07)
[2018-03-07] MEDS: NS 0.9% 1000 ML* 1,000 ML IV SCH ×2 (09:15→20:02)
--- NOTE | 2018-03-07 14:40 | PN ---
Subjective Date of Service: 03/07/18 Interval History: Patient was seen and examined at bedside. Doing better today, daughter visiting , appears more alert and oriented. Denies hip pain. Appetite better, taking ensure to boost his meals. TPN stopped after PICC was pulled out by patient yesterday. No c/o today. Family History: Unchanged from Admission Social History: Unchanged from Admission Past Medical History: Unchanged from Admission Objective Active Medications: Acetaminophen (Tylenol Tab*) 650 mg PO Q6H PRN PRN Reason: FEVER/PAIN Amlodipine Besylate (Norvasc Tab*) 10 mg PO DAILY [facility] Last Admin: 03/07/18 09:06 Dose: 10 mg Aspirin (Aspirin Ec Low Dose*) 81 mg PO DAILY [facility] Last Admin: 03/07/18 09:07 Dose: 81 mg Calcium Polycarbophil (Fibercon Tab*) 625 mg PO BID [facility] Last Admin: 03/07/18 09:07 Dose: 625 mg Heparin Sodium (Porcine) (Heparin Vial(*)) 5,000 units SUBCUT Q8HR [facility] Last Admin: 03/07/18 14:03 Dose: 5,000 units Heparin Sodium (Porcine) (Heparin Flush Picc/Ml/Cvc(*)) 1 - 3 ml FLUSH 0600, 1800 [facility] PRN Reason: Protocol Last Admin: 03/07/18 04:43 Dose: Not Given Hydralazine HCl (Apresoline Iv*) 5 mg IV SLOW PU Q6H PRN PRN Reason: BLOOD PRESSURE Last Admin: 03/03/18 03:27 Dose: 5 mg Cefazolin Sodium 1 gm/ IV (Solution) 50 mls @ 200 mls/hr IVPB 0200,1000,1800 [facility] Last Admin: 03/07/18 09:15 Dose: 200 mls/hr Sodium Chloride (Ns 0.9% 1000 Ml*) 1,000 mls @ 100 mls/hr IV PER RATE [facility] Last Admin: 03/07/18 09:15 Dose: 100 mls/hr Lactobacillus Rhamnosus (Culturelle*) 1 cap PO BID [facility] Last Admin: 03/07/18 09:07 Dose: 1 cap Lisinopril (Prinivil Tab*) 5 mg PO DAILY [facility] Last Admin: 03/07/18 09:06 Dose: 5 mg Loperamide HCl (Imodium Cap*) 2 mg PO QAM [facility] Last Admin: 03/07/18 09:06 Dose: 2 mg Metoprolol Tartrate (Lopressor Tab*) 50 mg PO BID [facility] Last Admin: 03/07/18 09:06 Dose: 50 mg Metronidazole (Flagyl Tab*) 500 mg PO BID [facility] Last Admin: 03/07/18 09:05 Dose: 500 mg Mirtazapine (Remeron Tab*) 15 mg PO BEDTIME [facility] Last Admin: 03/06/18 21:27 Dose: 15 mg Morphine Sulfate (Morphine Inj (Syringe)*) 2 mg IV Q4H PRN PRN Reason: PAIN - SEVERE Last Admin: 03/07/18 14:03 Dose: 2 mg Olanzapine (Zyprexa Tab*) 2.5 mg PO BEDTIME [facility] Last Admin: 03/06/18 21:28 Dose: 2.5 mg Oxycodone HCl (Oxycontin(*)) 20 mg PO Q12HR [facility] Last Admin: 03/07/18 09:06 Dose: 20 mg Oxycodone HCl (Roxycodone Tab*) 10 mg PO Q4H PRN PRN Reason: PAIN Last Admin: 03/06/18 21:38 Dose: 10 mg Sertraline HCl (Zoloft*) 25 mg PO DAILY [facility] Last Admin: 03/07/18 09:05 Dose: 25 mg Thiamine HCl (Vitamin B-1 Tab*) 100 mg PO DAILY [facility] Last Admin: 03/07/18 09:07 Dose: 100 mg Vital Signs - 8 hr 03/07/18 03/07/18 03/07/18 07:49 09:01 09:06 Temperature 97.7 F Pulse Rate 87 Respiratory 20 28 28 Rate Blood Pressure 120/67 (mmHg) O2 Sat by Pulse 100 Oximetry 03/07/18 03/07/18 03/07/18 09:20 14:00 14:03 Temperature Pulse Rate Respiratory 28 20 20 Rate Blood Pressure (mmHg) O2 Sat by Pulse Oximetry Oxygen Devices in Use Now: None Appearance: More alert, comfortable on his back in bed, in NAD. Eyes: No Scleral Icterus, PERRLA Ears/Nose/Mouth/Throat: Mucous Membranes Moist Neck: NL Appearance and Movements; NL JVP, Trachea Midline Respiratory: Symmetrical Chest Expansion and Respiratory Effort, Clear to Auscultation Cardiovascular: NL Sounds; No Murmurs; No JVD, RRR Abdominal: NL Sounds; No Tenderness; No Distention Extremities: No Edema, - - Right lateral thigh wound dressing changed. No changes noted. Skin: No Rash or Ulcers Lines/Tubes/Other Access: Clean, Dry and Intact [place], Clean, Dry and Intact Peripheral IV Nutrition: Taking PO's Result Diagrams: 02/27/18 06:28 03/06/18 06:20 Microbiology and Other Data: Assess/Plan/Problems-Billing Mr. Travis is a 67 yo M who has a h/o CAD, HTN, HLD, chronic hip/leg pain who presented to the ER with fever and increased drainage from a R lateral hip decubitus ulcer and was found to be severely septic secondary to the infected decubitus. - Patient Problems (1) Decubitus ulcer Current Visit: Yes Comment: Infected decubitus of right lateral thigh/hip, s/ p I&D then debridement Local wound care Not a good candidate for a wound vac (2) Severe sepsis Current Visit: Yes (3) Diarrhea Current Visit: Yes Comment: Resolved, more formed stools, no BM since yesterday. (4) HTN (hypertension) Current Visit: Yes Comment: Increased amlodipine to 10mg daily 02/26. Increase metoprolol to 50 mg bid AM 03/02/18. Start lisinopril 5 mg daily 2 PM 03/03. (5) Psychiatric diagnosis Current Visit: Yes Comment: Psychiatry consult appreciated. Started olanzapine and increased dose of mirtazapine 03/02. (6) Severe protein-calorie malnutrition Current Visit: Yes Comment: prealbulin <3 Continue to encourage PO intake TPN d/c'ed after PICC pulled out (7) Dementia Current Visit: No Comment: I suspect a significant contribution to his poor memory and cognition is his lifelong alcoholism, which only ended about a year ago. I spoke on the phone with his mary jane Sim who is now living with him. She states he thinks she is his sister (who many years ago) and gets other relatives confused. Start thiamine. (8) Osteoarthritis of hips, bilateral Current Visit: No Comment: Start APAP 650 mg tid. Pt refused PT. Will try again. (9) DNR (do not resuscitate) Current Visit: Yes (10) DVT prophylaxis Current Visit: Yes Comment: SQ heparin Status and Disposition: A 67 y/o male with multiple medical issues, who was admitted with severe sepsis secondary to infected right lateral thigh decubitus ulcer. He is slowly improving, working on improving his nutritional status and optimizing medical care for placement to [facility] facility. Palliative care consult was ordered. I had a long discussion with his daughter Chiquis regarding placement plans. She would like him to return to a SNF as soon as he is stable. I don't think his nutritional status is optimized since he keeps refusing to eat. Other options include PEG or NG tube feeding, which was denied by patient. Will await palliative care recommendation regarding placement options.
[2018-03-07] MEDS: oxyCODONE TAB* 5 MG TAB PO PRN (17:57)
[2018-03-07] MEDS: OLANzapine TAB* 2.5 MG PO SCH (21:48)
[2018-03-07] MEDS: Mirtazapine TAB* 15 MG PO SCH (21:49)
[2018-03-08] MEDS: CEFAZOLIN IVPB SCH ×3 (01:39→17:17)
[2018-03-08] MEDS: Morphine INJ* 2 MG/ML 1 ML CARPUJECT IV PRN ×3 (02:24→19:27)
[2018-03-08] MEDS: Heparin VIAL(*) 5000 UNITS/ML VIAL (FIVE THOUSAND) SUBCUT SCH ×3 (06:20→21:01)
[2018-03-08] MEDS: NS 0.9% 1000 ML* 1,000 ML IV SCH ×2 (07:53→18:53)
--- NOTE | 2018-03-08 08:29 | PN ---
Subjective Date of Service: 03/08/18 Interval History: Mr. Travis reports that he feels ok today and that he has no acute complaints. He confirms that he doesn't feel like eating much but that he would not want a PEG tube. He understands that he has a poor prognosis given his persistent decline. Family History: Unchanged from Admission Social History: Unchanged from Admission Past Medical History: Unchanged from Admission Objective Active Medications: Acetaminophen (Tylenol Tab*) 650 mg PO Q6H PRN Amlodipine Besylate (Norvasc Tab*) 10 mg PO DAILY [facility] Aspirin (Aspirin Ec Low Dose*) 81 mg PO DAILY [facility] Calcium Polycarbophil (Fibercon Tab*) 625 mg PO BID [facility] Heparin Sodium (Porcine) (Heparin Vial(*)) 5,000 units SUBCUT Q8HR [facility] Heparin Sodium (Porcine) (Heparin Flush Picc/Ml/Cvc(*)) 1 - 3 ml FLUSH 0600, 1800 [facility] Hydralazine HCl (Apresoline Iv*) 5 mg IV SLOW PU Q6H PRN Cefazolin Sodium 1 gm/ IV (Solution) 50 mls @ 200 mls/hr IVPB 0200,1000,1800 [facility] Sodium Chloride (Ns 0.9% 1000 Ml*) 1,000 mls @ 100 mls/hr IV PER RATE [facility] Lactobacillus Rhamnosus (Culturelle*) 1 cap PO BID [facility] Lisinopril (Prinivil Tab*) 5 mg PO DAILY [facility] Loperamide HCl (Imodium Cap*) 2 mg PO QAM [facility] Metoprolol Tartrate (Lopressor Tab*) 50 mg PO BID [facility] Metronidazole (Flagyl Tab*) 500 mg PO BID [facility] Mirtazapine (Remeron Tab*) 15 mg PO BEDTIME [facility] Morphine Sulfate (Morphine Inj (Syringe)*) 2 mg IV Q4H PRN Olanzapine (Zyprexa Tab*) 2.5 mg PO BEDTIME [facility] Oxycodone HCl (Oxycontin(*)) 20 mg PO Q12HR [facility] Oxycodone HCl (Roxycodone Tab*) 10 mg PO Q4H PRN Sertraline HCl (Zoloft*) 25 mg PO DAILY [facility] Thiamine HCl (Vitamin B-1 Tab*) 100 mg PO DAILY [facility] Vital Signs: Temp Pulse Resp BP Pulse Ox 98.0 F 97 20 145/81 100 03/08/18 08:00 03/08/18 08:00 03/08/18 08:22 03/08/18 08:00 03/08/18 08:00 Oxygen Devices in Use Now: None Appearance: Male lying in bed in NAD Result Diagrams: 02/27/18 06:28 03/06/18 06:20 Assess/Plan/Problems-Billing Assessment: Mr. Travis is a 67 yo M who has a h/o CAD, HTN, HLD, chronic hip/leg pain who presented to the ER with fever and increased drainage from a R lateral hip decubitus ulcer and was found to be severely septic secondary to the infected decubitus. - Patient Problems (1) Severe sepsis Comment: - On admission the patient was severely septic based on tachycardia, leukocytosis, fever and end organ dysfunction with an elevated troponin. - The severe sepsis is secondary to an infected decubitus ulcer. - Continue ancef and flagyl, wound care management (2) Decubitus ulcer Comment: - Infected decubitus of right lateral thigh/hip, s/p I&D then debridement. - Continue local wound care and abx. - Unlikely to heal wound due to poor nutritional status. (3) Severe protein-calorie malnutrition Comment: - Prealbulin <3 - Continue to encourage PO intake (4) Diarrhea Comment: - Resolved, more formed stools, no BM since yesterday. (5) HTN (hypertension) Comment: - BP well controlled. - Increased amlodipine to 10mg daily 02/26. Increase metoprolol to 50 mg bid AM 03/02/18. Start lisinopril 5 mg daily 2 PM 03/03. (6) Psychiatric diagnosis Comment: - Psychiatry consult appreciated. - Started olanzapine and increased dose of mirtazapine 03/02. (7) Dementia Comment: - At baseline. (8) DVT prophylaxis Comment: - SQ heparin (9) DNR (do not resuscitate) Comment: Status and Disposition: A 67 y/o male with multiple medical issues, who was admitted with severe sepsis secondary to infected right lateral thigh decubitus ulcer. Appreciate palliative care consult, patient and family in agreement in to pursue hospice care. Family hopeful for a bed at [facility].
[2018-03-08] MEDS: Loperamide CAP* 2 MG PO SCH (09:28)
[2018-03-08] MEDS ORDERED: Bisacodyl SUPP* 10 MG SUPP PR PRN (09:35)
[2018-03-08] MEDS ORDERED: Polyethylene Glycol 3350* 17 GM PACKET PO PRN (09:35)
[2018-03-08] MEDS: Lactobacillus Acidophilu (GG)* 1 CAP CAP PO SCH ×2 (09:44→20:53)
[2018-03-08] MEDS: Calcium Polycarbophil TAB* 625 MG PO SCH ×2 (09:44→20:53)
[2018-03-08] MEDS: Aspirin EC TAB* 81 MG TAB.EC PO SCH (09:44)
[2018-03-08] MEDS: Thiamine TAB* 100 MG TAB PO SCH (09:44)
[2018-03-08] MEDS: amLODIPine TAB* 5 MG PO SCH (09:45)
[2018-03-08] MEDS: Sertraline* 25 MG TAB PO SCH (09:45)
[2018-03-08] MEDS: Lisinopril TAB* 5 MG PO SCH (09:45)
[2018-03-08] MEDS: Metoprolol Tartrate TAB* 25 MG PO SCH ×2 (09:45→20:58)
[2018-03-08] MEDS: oxyCODONE SR TAB(*) 20 MG TAB.SR PO SCH ×2 (09:46→20:52)
[2018-03-08] MEDS: metroNIDAZOLE TAB* 250 MG PO SCH ×2 (09:46→20:53)
--- NOTE | 2018-03-08 12:01 | CONSULT ---
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 He is not able to sit up, and his speech consists mostly of mumbling. Because he arrived with a prealbumin <3, and has been refusing to eat, he was receiving TPN via a PICC line, but he actually pulled this out himself, because he felt it was "not doing anything." Prior to his stay at [facility]), he was living with his daughter Chiquis and her two children. When I spoke to Chiquis she said she had lost her house and was currently living in a hotel. She had moved here from [place] in August 2017 to live with her father because he was unable to care for himself, and had been found by the police on the floor, unable to move. Apparently he has severe osteoarthritis of the hips and has refused THRs for many years. Because he was immobile, he had been unable to purchase alcohol , and had become sober, and his daughter says his mental status improved quite a bit. Then he was hospitalized here and sent to [facility] in November, where he refused to eat, and developed a bed-sore on the right hip in mid-January. At this point, he still has severe malnutrition, is refusing to eat, and has had poor ability to heal his very large decubitus ulcer. His contractures are severe. In speaking with the patient, he tells me he just wants to be comfortable, he does not want further interventions, and he does not want to participate in PT. Lab Values: Laboratory Last Values WBC 10.2 10^3/ul (3.5-10.8) 02/27/18 06:28 RBC 3.06 10^6/ul (4.0-5.4) L 02/27/18 06:28 Hgb 8.5 g/dl (14.0-18.0) L 02/27/18 06:28 Hct 25 % (42-52) L 02/27/18 06:28 MCV 81 fL (80-94) 02/27/18 06:28 MCH 28 pg (27-31) 02/27/18 06:28 MCHC 34 g/dl (31-36) 02/27/18 06:28 RDW 16 % (10.5-15) H 02/27/18 06:28 Plt Count 525 10^3/ul (150-450) H 02/27/18 06:28 MPV 7.5 um3 (7.4-10.4) 02/27/18 06:28 Neut % (Auto) 68.3 % (38-83) 02/27/18 06:28 Lymph % (Auto) 19.2 % (25-47) L 02/27/18 06:28 [place] % (Auto) 8.5 % (0-7) H 02/27/18 06:28 Eos % (Auto) 3.1 % (0-6) 02/27/18 06:28 Baso % (Auto) 0.9 % (0-2) 02/27/18 06:28 Absolute Neuts (auto) 7.0 10^3/ul (1.5-7.7) 02/27/18 06:28 Absolute Lymphs (auto) 2.0 10^3/ul (1.0-4.8) 02/27/18 06:28 Absolute Monos (auto) 0.9 10^3/ul (0-0.8) H 02/27/18 06:28 Absolute Eos (auto) 0.3 10^3/ul (0-0.6) 02/27/18 06:28 Absolute Basos (auto) 0.1 10^3/ul (0-0.2) 02/27/18 06:28 Absolute Nucleated RBC 0 10^3/ul 02/27/18 06:28 Nucleated RBC % 0 02/27/18 06:28 INR (Anticoag Therapy) 1.26 (0.77-1.02) H 02/23/18 03:10 Sodium 134 mmol/L (139-145) L 03/06/18 06:20 Potassium 4.7 mmol/L (3.5-5.0) 03/06/18 06:20 Chloride 111 mmol/L (101-111) 03/06/18 06:20 Carbon Dioxide 17 mmol/L (22-32) L 03/06/18 06:20 Anion Gap 6 mmol/L (2-11) 03/06/18 06:20 BUN 43 mg/dL (6-24) H 03/06/18 06:20 Creatinine 0.85 mg/dL (0.67-1.17) 03/06/18 06:20 Est GFR ( Amer) 115.6 (>60) 03/06/18 06:20 Est GFR (Non-Af Amer) 89.9 (>60) 03/06/18 06:20 BUN/Creatinine Ratio 50.6 (8-20) H 03/06/18 06:20 Glucose 103 mg/dL (70-100) H 03/06/18 06:20 POC Glucose (mg/dL) 123 mg/dL (70-100) H 03/06/18 17:07 Lactic Acid 1.0 mmol/L (0.5-2.0) 02/23/18 03:10 Calcium 10.2 mg/dL (8.6-10.3) 03/06/18 06:20 Phosphorus 3.0 mg/dL (2.5-5.0) 03/05/18 05:40 Magnesium 1.7 mg/dL (1.9-2.7) L 03/05/18 05:40 Total Bilirubin 0.20 mg/dL (0.2-1.0) 03/05/18 05:40 AST 21 U/L (13-39) 03/05/18 05:40 ALT 12 U/L (7-52) 03/05/18 05:40 Alkaline Phosphatase 48 U/L (34-104) 03/05/18 05:40 Troponin I 0.04 ng/mL (<0.04) H* 02/23/18 09:35 C-Reactive Protein 59.50 mg/L (< 5.00) H 02/27/18 06:28 Total Protein 5.9 g/dL (6.4-8.9) L 03/05/18 05:40 Albumin 2.4 g/dL (3.2-5.2) L 03/05/18 05:40 Globulin 3.5 g/dL (2-4) 03/05/18 05:40 Albumin/Globulin Ratio 0.7 (1-3) L 03/05/18 05:40 Prealbumin 9 mg/dL (18-38) L 03/05/18 05:40 Triglycerides 56 mg/dL 03/05/18 05:40 Cholesterol 115 mg/dL 03/05/18 05:40 Procalcitonin 0.9 ng/mL (<0.6) H 02/23/18 03:10 Urine Color Yellow 02/25/18 05:26 Urine Appearance Clear 02/25/18 05:26 Urine pH 5.0 (5-9) 02/25/18 05:26 Ur Specific [place] 1.011 (1.010-1.030) 02/25/18 05:26 Urine Protein Negative (Negative) 02/25/18 05:26 Urine Ketones Trace (Negative) A 02/25/18 05:26 Urine Blood Negative (Negative) 02/25/18 05:26 Urine Nitrate Negative (Negative) 02/25/18 05:26 Urine Bilirubin Negative (Negative) 02/25/18 05:26 Urine Urobilinogen Negative (Negative) 02/25/18 05:26 Ur Leukocyte Esterase Negative (Negative) 02/25/18 05:26 Urine Glucose Negative (Negative) 02/25/18 05:26 Urine Ascorbic Acid * (Negative) A 02/25/18 05:26 Hep Bs Antigen Nonreactive (Nonreactive) 03/04/18 15:57 Hepatitis C Antibody Nonreactive (Nonreactive) 03/04/18 15:57 HIV 1&2 Antibody Nonreactive (Nonreactive) 02/23/18 03:10 - Objective Active Medications: Acetaminophen (Tylenol Tab*) 650 mg PO Q6H PRN PRN Reason: FEVER/PAIN Amlodipine Besylate (Norvasc Tab*) 10 mg PO DAILY [facility] Last Admin: 03/08/18 09:45 Dose: 10 mg Aspirin (Aspirin Ec Low Dose*) 81 mg PO DAILY [facility] Last Admin: 03/08/18 09:44 Dose: 81 mg Bisacodyl (Dulcolax Supp*) 10 mg [place] DAILY PRN PRN Reason: CONSTIPATION Calcium Polycarbophil (Fibercon Tab*) 625 mg PO BID [facility] Last Admin: 03/08/18 09:44 Dose: 625 mg Heparin Sodium (Porcine) (Heparin Vial(*)) 5,000 units SUBCUT Q8HR [facility] Last Admin: 03/08/18 06:20 Dose: 5,000 units Heparin Sodium (Porcine) (Heparin Flush Picc/Ml/Cvc(*)) 1 - 3 ml FLUSH 0600, 1800 [facility] PRN Reason: Protocol Last Admin: 03/08/18 06:23 Dose: Not Given Hydralazine HCl (Apresoline Iv*) 5 mg IV SLOW PU Q6H PRN PRN Reason: BLOOD PRESSURE Last Admin: 03/03/18 03:27 Dose: 5 mg Cefazolin Sodium 1 gm/ IV (Solution) 50 mls @ 200 mls/hr IVPB 0200,1000,1800 [facility] Last Admin: 03/08/18 09:46 Dose: 200 mls/hr Sodium Chloride (Ns 0.9% 1000 Ml*) 1,000 mls @ 100 mls/hr IV PER RATE [facility] Last Admin: 03/08/18 07:53 Dose: 100 mls/hr Lactobacillus Rhamnosus (Culturelle*) 1 cap PO BID [facility] Last Admin: 03/08/18 09:44 Dose: 1 cap Lisinopril (Prinivil Tab*) 5 mg PO DAILY [facility] Last Admin: 03/08/18 09:45 Dose: 5 mg Loperamide HCl (Imodium Cap*) 2 mg PO QAM [facility] Last Admin: 03/08/18 09:28 Dose: Not Given Metoprolol Tartrate (Lopressor Tab*) 50 mg PO BID [facility] Last Admin: 03/08/18 09:45 Dose: 50 mg Metronidazole (Flagyl Tab*) 500 mg PO BID [facility] Last Admin: 03/08/18 09:46 Dose: 500 mg Mirtazapine (Remeron Tab*) 15 mg PO BEDTIME [facility] Last Admin: 03/07/18 21:49 Dose: 15 mg Morphine Sulfate (Morphine Inj (Syringe)*) 2 mg IV Q4H PRN PRN Reason: PAIN - SEVERE Last Admin: 03/08/18 02:24 Dose: 2 mg Olanzapine (Zyprexa Tab*) 2.5 mg PO BEDTIME [facility] Last Admin: 03/07/18 21:48 Dose: 2.5 mg Oxycodone HCl (Oxycontin(*)) 20 mg PO Q12HR [facility] Last Admin: 03/08/18 09:46 Dose: 20 mg Oxycodone HCl (Roxycodone Tab*) 10 mg PO Q4H PRN PRN Reason: PAIN Last Admin: 03/07/18 17:57 Dose: 10 mg Polyethylene Glycol/Electrolytes (Miralax*) 17 gm PO DAILY PRN PRN Reason: CONSTIPATION Sertraline HCl (Zoloft*) 25 mg PO DAILY [facility] Last Admin: 03/08/18 09:45 Dose: 25 mg Thiamine HCl (Vitamin B-1 Tab*) 100 mg PO DAILY [facility] Last Admin: 03/08/18 09:44 Dose: 100 mg Vital Signs: Vital Signs: Temp Pulse Resp BP Pulse Ox 97.5 F 102 24 103/55 100 03/08/18 11:32 03/08/18 11:32 03/08/18 11:32 03/08/18 11:32 03/08/18 11:32 Patient Weight: Weight 129 lb 9.6 oz Intake and Output: Intake & Output 03/06/18 03/07/18 03/08/18 03/09/18 06:59 06:59 06:59 06:59 Intake Total 3109 1669 2323 Output Total 2475 2900 2900 Balance 304 -5361 -757 Weight 128 lb 4.8 oz 126 lb 9.6 oz 129 lb 9.6 oz Intake: IV Fluids 1609 1283 Cefazolin 50 NS 1559 1283 IVPB 2429 60 120 Cefazolin 131 60 NS 120 tpn 2298 Oral 680 0 920 Output: Urine 900 [place] 1575 2900 2900 Other: # Bowel Movements 0 0 0 # Voids 1 ADLs: Meal Record Start: 02/23/18 08: 25 Freq: DAILY@0900,1400,1800 Status: Complete Protocol: Created 02/23/18 08:25 System (Rec: 02/23/18 08:25 System MED-C16) Document 02/23/18 09:00 [id number] (Rec: 02/23/18 11:37 [id number] ICU-M04) ADLs: Meal Record Start: 02/23/18 10: 05 Freq: DAILY@0900,1400,1800 Status: Active Protocol: Created 02/23/18 10:05 [id number] (Rec: 02/23/18 10:05 [id number] ICU-M04) Document 02/23/18 13:00 [id number] (Rec: 02/23/18 13:47 [id number] ICU-C06) Document 02/23/18 18:00 SII1901 (Rec: 02/23/18 18:40 [id number] ICU-C06) Document 02/24/18 09:00 SUQ3847 (Rec: 02/24/18 09:52 [id number] ICU-C06) Document 02/24/18 13:45 OMZ5967 (Rec: 02/24/18 13:46 BMF5284 MED-M09) Document 02/25/18 09:00 QFU9582 (Rec: 02/25/18 10:52 NAG3810 MED-C11) Document 02/25/18 10:00 INR3032 (Rec: 02/25/18 10:12 ZCW5660 MED-M11) Document 02/25/18 13:00 XBT3913 (Rec: 02/25/18 14:37 OOK6071 MED-C11) Document 02/25/18 14:52 VCT9037 (Rec: 02/25/18 14:53 IYW7013 MED-C05) Document 02/25/18 18:00 MWO1920 (Rec: 02/25/18 21:37 UNC6590 MED-C07) Document 02/26/18 09:00 FRO6968 (Rec: 02/26/18 14:53 PGW6755 MED-C11) Document 02/26/18 13:00 AGY2652 (Rec: 02/26/18 14:55 GXO8729 MED-C11) Document 02/26/18 18:00 DTG2418 (Rec: 02/26/18 18:14 YPU3379 MED-C11) Document 02/27/18 18:00 NJO3925 (Rec: 02/27/18 20:23 SNU6362 MED-C09) Document 02/28/18 09:00 WUX3679 (Rec: 02/28/18 12:05 GLN5811 MED-C11) Document 02/28/18 13:00 WGK2463 (Rec: 02/28/18 15:06 SSB0458 MED-C11) Document 02/28/18 17:58 GWF5622 (Rec: 02/28/18 17:58 PDT0296 MED-C11) Document 03/01/18 09:00 IDA7391 (Rec: 03/01/18 12:46 DKO9870 MED-C11) Document 03/01/18 18:00 BLK0314 (Rec: 03/01/18 20:54 FCO1020 MED-C11) Document 03/02/18 09:00 QSO7752 (Rec: 03/02/18 15:05 ERD5245 MED-C09) Document 03/02/18 13:00 TQQ2892 (Rec: 03/02/18 15:06 WFZ3242 MED-C09) Document 03/02/18 17:54 YXD2998 (Rec: 03/02/18 17:54 LGG1515 MED-C11) Document 03/03/18 18:00 XQD5262 (Rec: 03/03/18 18:15 AGE3886 MED-C09) Document 03/04/18 09:00 HTA6140 (Rec: 03/04/18 09:55 UHG8178 MED-C11) Document 03/04/18 13:00 RBK5220 (Rec: 03/04/18 13:58 LFP6466 MED-C11) Document 03/05/18 09:00 IHS5671 (Rec: 03/05/18 12:30 EKZ0772 MED-C16) Document 03/05/18 14:00 ADB8021 (Rec: 03/05/18 14:22 CNH2987 MED-C11) Document 03/05/18 18:00 AWB6348 (Rec: 03/05/18 18:09 OUN5626 MED-C11) Document 03/06/18 09:00 KAB2860 (Rec: 03/06/18 09:59 UCE7002 MED-C05) Document 03/06/18 14:00 YBR5522 (Rec: 03/06/18 14:36 VKA2684 MED-C07) Document 03/06/18 18:00 CEI5491 (Rec: 03/06/18 18:33 MEG8622 MED-M01) Document 03/07/18 09:00 DWB1793 (Rec: 03/07/18 10:53 QBH9801 MED-C11) Document 03/07/18 14:00 TUM0086 (Rec: 03/07/18 14:33 DQF7643 MED-C09) Document 03/07/18 17:38 VTU0245 (Rec: 03/07/18 17:38 LLT5038 MED-C07) Intake and Output Start: 02/23/18 02: 43 Freq: Status: Active Protocol: Created 02/23/18 02:43 System (Rec: 02/23/18 02:43 System EDRM-C03) Intake and Output Start: 02/23/18 08: 25 Freq: DAILY@0600,1400,2200 Status: Complete Protocol: Created 02/23/18 08:25 System (Rec: 02/23/18 08:25 System MED-C16) Intake and Output Start: 02/23/18 10: 05 Freq: 06,14,22 Status: Active Protocol: Created 02/23/18 10:05 RDE2540 (Rec: 02/23/18 10:05 MQW9143 ICU-M04) Document 02/23/18 14:00 NYG2187 (Rec: 02/23/18 15:10 WMH8978 ICU-C06) Document 02/23/18 23:35 VRN5839 (Rec: 02/23/18 23:35 XPL1696 ICU-C14) Document 02/24/18 01:01 TTN1286 (Rec: 02/24/18 01:01 AIO4613 ICU-C14) Document 02/24/18 06:24 SQR6722 (Rec: 02/24/18 06:26 NJK0239 ICU-C06) Document 02/24/18 22:00 SBV4803 (Rec: 02/24/18 23:42 QGQ2876 MED-C13) Document 02/25/18 05:29 RRT8736 (Rec: 02/25/18 05:29 KFY6802 MED-M04) Document 02/25/18 14:00 YCV9623 (Rec: 02/25/18 14:37 CTV5858 MED-C11) Document 02/26/18 05:53 NFM6988 (Rec: 02/26/18 05:53 PQZ4796 MED-C09) Document 02/26/18 14:00 OMC5697 (Rec: 02/26/18 14:54 LAA9850 MED-C11) Document 02/26/18 20:07 VIN5575 (Rec: 02/26/18 20:07 DMW0376 MED-C11) Document 02/26/18 21:50 XNM3149 (Rec: 02/26/18 21:51 KZJ5153 MED-C09) Document 02/27/18 06:00 JDU5700 (Rec: 02/27/18 06:46 RBH8099 MED-C11) Document 02/27/18 14:00 ZFT9807 (Rec: 02/27/18 15:59 LJI0713 MED-C16) Document 02/27/18 22:00 GKR7229 (Rec: 02/27/18 22:59 EIP4194 MED-C09) Document 02/28/18 06:00 WKO0983 (Rec: 02/28/18 06:10 EEN2803 MED-C11) Document 02/28/18 14:00 NIZ6387 (Rec: 02/28/18 15:08 RRJ6943 MED-C11) Document 02/28/18 20:04 FOP7767 (Rec: 02/28/18 20:05 SRK1197 MED-C11) Document 03/01/18 03:31 IGG5791 (Rec: 03/01/18 03:32 QCP3044 MED-C11) Document 03/01/18 06:04 ONQ2686 (Rec: 03/01/18 06:04 QBB8340 MED-C11) Document 03/01/18 08:24 AGQ6173 (Rec: 03/01/18 08:24 HYS0879 MED-C05) Document 03/01/18 10:34 ERB4078 (Rec: 03/01/18 10:36 QDI9145 MED-C02) Document 03/01/18 14:00 WCM7821 (Rec: 03/01/18 15:05 XMT5106 MED-C09) Document 03/01/18 21:03 RIA4505 (Rec: 03/01/18 21:04 NRU9892 MED-C11) Document 03/02/18 03:03 JBU7231 (Rec: 03/02/18 03:03 RKT0685 MED-C11) Document 03/02/18 05:57 BNU6090 (Rec: 03/02/18 05:58 SUS3197 MED-C11) Document 03/02/18 14:00 MRX3604 (Rec: 03/02/18 15:08 ZUF2747 MED-C09) Document 03/02/18 21:18 QKI8448 (Rec: 03/02/18 21:19 PGS4550 MED-C11) Document 03/03/18 04:09 WJQ5468 (Rec: 03/03/18 04:10 DGV5087 MED-C11) Document 03/03/18 14:00 QBB2773 (Rec: 03/03/18 14:31 VDN4419 MED-C11) Document 03/03/18 20:59 MCI0012 (Rec: 03/03/18 20:59 XZC8561 MED-C09) Document 03/04/18 05:34 MYD8111 (Rec: 03/04/18 05:35 YYC6991 MED-C11) Document 03/04/18 14:00 NJW0093 (Rec: 03/04/18 15:04 ZBR1007 MED-C11) Document 03/04/18 22:00 HEG6199 (Rec: 03/04/18 22:29 TSN2160 MED-C11) Document 03/05/18 05:04 OJZ3183 (Rec: 03/05/18 05:05 NPD4403 MED-C16) Document 03/05/18 14:00 MMI4544 (Rec: 03/05/18 14:22 FLX6781 MED-C11) Document 03/05/18 21:44 CYQ9604 (Rec: 03/05/18 21:44 OWL1593 MED-C11) Document 03/06/18 05:17 DZS3988 (Rec: 03/06/18 05:18 IZI4463 MED-C09) Document 03/06/18 14:00 UHO9518 (Rec: 03/06/18 14:36 ZOL8508 MED-C07) Document 03/06/18 22:00 YZQ4262 (Rec: 03/06/18 22:20 QTW7725 MED-C09) Document 03/07/18 05:18 QYY9896 (Rec: 03/07/18 05:20 QYP9118 MED-C11) Document 03/07/18 14:00 SET0027 (Rec: 03/07/18 14:33 QVU2009 MED-C09) Document 03/07/18 20:58 TQG0582 (Rec: 03/07/18 20:58 PIF3985 MED-C12) Document 03/08/18 06:00 UQR7418 (Rec: 03/08/18 06:49 PBD2363 MED-C09) General Impression: Pleasant, sleepy man mumbling in response to questions and drifting off. Head: Symmetrical Eyes: No Scleral Icterus, PERRLA Ears/Nose/Mouth/Throat: Mucous Membranes Moist Neck: NL Appearance and Movements; NL JVP, Trachea Midline Cardiovascular: NL Sounds; No Murmurs; No JVD, RRR Respiratory: Symmetrical Chest Expansion and Respiratory Effort Abdominal: NL Sounds; No Tenderness; No Distention Extremities: No Edema, - - Right lateral thigh ulcer dressed,not observed. Neurological: NL Sensation, - - marked contractures both LE's. No tremor. - Assessment Assessment: This is a very debilitated ma with underlying dementia, possibly on the basis of his alcoholism, who is admitted with sepsis from a severe decubitus ulcer with colonization by stool kong from his fecal incontinence, which is unable to heal due to his severe malnutrition. He has lost a lot of weight and will probably continue to do so. I had a long conference with the patient's HCP and daughter, Chiquis, and his sister and stepmother who arrived today after driving from [place]. They eventually all agreed that it is in the patient's best interest to make him as comfortable as possible, encourage eating and drinking but avoid parenteral NAVEED, and hope that he improves enough to heal his decubitus ulcer. He can continue to get Ancef for the entire 42 day course as prescribed by Dr. Acuna, and can be admitted to hospice services at [facility], his and family's choice of SNF. He qualifies for hosice on the basis of his sepsis and his malnutrition. His daughter is interested in getting medical marijuana for his anorexia, and I will certify him for this if there is a way for it to be administered at [facility]. Thanks for involving the palliative team in his care. - Plan Consult Plan (MU): Hospice - Time On Unit Date of Evaluation: 03/08/18 Hospice Consult Time in: 12:00 Hospice Consult Time Out: 14:20 Hospice Consult Time Total: 140 > 50% of Time Spend In Counseling or Coordinating Care: Yes
--- NOTE | 2018-03-08 15:09 | PN ---
Progress Note - Progress Note Date of Service: 03/08/18 SOAP: Subjective:right hip decubitus ulcer;less pain with wound care [] Objective:afebrile;alert and more conversive;Right hip decubitus with exposed bone surrounded by granulation tissue,clean,no purulent drainage,no erythema;Dr Zamora also assessed;redressed with NS moistened kasey loosely packed into areas of undermining and covered with dry 4x4's and abd pad [] Assessment:right hip decubitus clean and healing [] Plan:per Dr Zamora will order placement of wound vac this week;patient informed []
[2018-03-08] MEDS: Mirtazapine TAB* 15 MG PO SCH (20:53)
[2018-03-08] MEDS: OLANzapine TAB* 2.5 MG PO SCH (20:53)
[2018-03-09] MEDS: CEFAZOLIN IVPB SCH ×2 (02:19→09:13)
[2018-03-09] MEDS: Heparin VIAL(*) 5000 UNITS/ML VIAL (FIVE THOUSAND) SUBCUT SCH ×3 (05:40→21:31)
[2018-03-09] MEDS: NS 0.9% 1000 ML* 1,000 ML IV SCH ×2 (05:40→16:18)
--- NOTE | 2018-03-09 08:33 | PN ---
Subjective Date of Service: 03/09/18 Interval History: Mr. Travis denies complaint and is eager to learn when and if he may be discharged from the hospital. Family History: Unchanged from Admission Social History: Unchanged from Admission Past Medical History: Unchanged from Admission Objective Active Medications: Acetaminophen (Tylenol Tab*) 650 mg PO Q6H PRN Amlodipine Besylate (Norvasc Tab*) 10 mg PO DAILY [facility] Aspirin (Aspirin Ec Low Dose*) 81 mg PO DAILY [facility] Bisacodyl (Dulcolax Supp*) 10 mg [place] DAILY PRN Calcium Polycarbophil (Fibercon Tab*) 625 mg PO BID [facility] Heparin Sodium (Porcine) (Heparin Vial(*)) 5,000 units SUBCUT Q8HR [facility] Hydralazine HCl (Apresoline Iv*) 5 mg IV SLOW PU Q6H PRN Cefazolin Sodium 1 gm/ IV (Solution) 50 mls @ 200 mls/hr IVPB 0200,1000,1800 [facility] Sodium Chloride (Ns 0.9% 1000 Ml*) 1,000 mls @ 100 mls/hr IV PER RATE [facility] Lactobacillus Rhamnosus (Culturelle*) 1 cap PO BID [facility] Lisinopril (Prinivil Tab*) 5 mg PO DAILY [facility] Loperamide HCl (Imodium Cap*) 2 mg PO QAM [facility] Metoprolol Tartrate (Lopressor Tab*) 50 mg PO BID [facility] Metronidazole (Flagyl Tab*) 500 mg PO BID [facility] Mirtazapine (Remeron Tab*) 15 mg PO BEDTIME [facility] Morphine Sulfate (Morphine Inj (Syringe)*) 2 mg IV Q4H PRN Olanzapine (Zyprexa Tab*) 2.5 mg PO BEDTIME [facility] Oxycodone HCl (Oxycontin(*)) 20 mg PO Q12HR [facility] Oxycodone HCl (Roxycodone Tab*) 10 mg PO Q4H PRN Polyethylene Glycol/Electrolytes (Miralax*) 17 gm PO DAILY PRN Sertraline HCl (Zoloft*) 25 mg PO DAILY [facility] Thiamine HCl (Vitamin B-1 Tab*) 100 mg PO DAILY [facility] Vital Signs: Temp Pulse Resp BP Pulse Ox 97.3 F 102 16 134/63 100 03/09/18 03:03 03/08/18 20:57 03/09/18 03:03 03/09/18 03:03 03/09/18 03:03 Oxygen Devices in Use Now: None Appearance: male lying in bed in NAD Eyes: No Scleral Icterus Ears/Nose/Mouth/Throat: Mucous Membranes Moist Neck: Trachea Midline Respiratory: Symmetrical Chest Expansion and Respiratory Effort, Clear to Auscultation Cardiovascular: NL Sounds; No Murmurs; No JVD Abdominal: NL Sounds; No Tenderness; No Distention Lymphatic: No Cervical Adenopathy Extremities: No Edema Skin: - - right hip with large decubitus ulcer Neurological: Alert and Oriented x 3, NL Muscle Strength and Tone Nutrition: Taking PO's Result Diagrams: 02/27/18 06:28 03/06/18 06:20 Additional Lab and Data: . Microbiology and Other Data: . Assess/Plan/Problems-Billing Assessment: Mr. Travis is a 67 yo M who has a h/o CAD, HTN, HLD, chronic hip/leg pain who presented to the ER with fever and increased drainage from a R lateral hip decubitus ulcer and was found to be severely septic secondary to the infected decubitus. - Patient Problems (1) Severe sepsis Comment: - Resolved. - On admission the patient was severely septic from an infected decubutus ulcer , based on tachycardia, leukocytosis, fever and end organ dysfunction with an elevated troponin. - Switch to amoxicillin x 2 weeks, continue wound care (2) Decubitus ulcer Comment: - Infected decubitus of right lateral thigh/hip, s/p I&D then debridement. - Continue local wound care and amoxicillin x 2 weeks. - Unlikely to heal wound due to poor nutritional status. - Surgery following and considering placement of a wound vac. (3) Severe protein-calorie malnutrition Comment: - Prealbulin <3 - Patient has poor appetite. Continue to offer PO intake. - Patient does not want artificial nutrition with NG or PEG tube. (4) HTN (hypertension) Comment: - BP well controlled. - Increased amlodipine to 10mg daily 02/26. Increased metoprolol to 50 mg bid 03/02/18. Started lisinopril 5 mg daily 03/03. (5) Psychiatric diagnosis Comment: - Psychiatry consult appreciated. - Started olanzapine and increased dose of mirtazapine 03/02. (6) Dementia Comment: - At baseline. (7) DVT prophylaxis Comment: - SQ heparin (8) DNR (do not resuscitate) Comment: Status and Disposition: Inpatient. Appreciate palliative care consult, patient and family in agreement in to pursue hospice care. Patient hopeful for a bed at [facility].
[2018-03-09] MEDS: oxyCODONE SR TAB(*) 20 MG TAB.SR PO SCH ×2 (08:50→21:30)
[2018-03-09] MEDS: Lactobacillus Acidophilu (GG)* 1 CAP CAP PO SCH ×2 (08:50→19:48)
[2018-03-09] MEDS: Lisinopril TAB* 5 MG PO SCH (08:51)
[2018-03-09] MEDS: Metoprolol Tartrate TAB* 25 MG PO SCH ×2 (08:51→19:51)
[2018-03-09] MEDS: Sertraline* 25 MG TAB PO SCH (08:51)
[2018-03-09] MEDS: amLODIPine TAB* 5 MG PO SCH (08:51)
[2018-03-09] MEDS: metroNIDAZOLE TAB* 250 MG PO SCH (08:51)
[2018-03-09] MEDS: Aspirin EC TAB* 81 MG TAB.EC PO SCH (08:51)
[2018-03-09] MEDS: Thiamine TAB* 100 MG TAB PO SCH (08:51)
[2018-03-09] MEDS: Calcium Polycarbophil TAB* 625 MG PO SCH ×2 (08:56→19:48)
[2018-03-09] MEDS: Loperamide CAP* 2 MG PO SCH (08:56)
--- NOTE | 2018-03-09 16:05 | DS ---
CC: Harjeet Christy.. DATE OF ADMISSION: 02/23/2018. DATE OF DISCHARGE: 03/09/2018. ATTENDING PHYSICIAN: Dr. Naren Daugherty* (dictation provided by Estefany Ramsay NP). PRIMARY DIAGNOSES: 1. Severe sepsis. 2. Large right hip decubitus ulcer. SECONDARY DIAGNOSES: 1. Dementia. 2. Protein calorie nutrition. 3. Coronary artery disease, history of ID in the past. 4. Hypertension. 5. Hyperlipidemia. 6. Chronic hip pain. 7. Inability to ambulate due to chronic hip and knee pain. MEDICATIONS: 1. Acidophilus one cap p.o. b.i.d. 2. Amoxicillin 500 mg p.o. q.12 hours times 2 weeks. 3. Dulcolax 10 mg p.r. daily prn. 4. Fibercon 625 mg p.o. b.i.d. 5. Lisinopril 5 mg p.o. daily. 6. Metoprolol Tartrate 50 mg p.o. b.i.d. 7. Olanzapine 2.5 mg p.o. at bedtime. 8. Polyethylene Glycol 17 gm p.o. daily prn. 9. Amlodipine 10 mg p.o. daily. 10. Tylenol 650 mg p.o. q.6 hours prn. 11. Cyanocobalamin 1,000 mcg IM weekly. 12. Vitamin B1, Thiamine 100 mg p.o. daily. 13. Oxycodone SR 20 mg p.o. q.12 hours prn. 14. Aspirin 81 mg p.o. daily. 15. Oxycodone 10 mg p.o. q.4 hours prn pain. 16. Ascorbic Acid 500 mg p.o. b.i.d. 17. Sertraline 25 mg p.o. daily. 18. Remeron 15 mg p.o. at bedtime. HOSPITAL COURSE: Mr. Travis is a 67-year-old male with a past medical history of coronary artery disease with ID in the past, hypertension, hyperlipidemia, and chronic pain who was residing at [facility] because of inability to ambulate due to chronic hip and knee pain. Please see the dictated history and physical from Dr. Barrera for complete details. In brief, the patient was sent to the emergency room on 02/23/2018 for concern of worsening drainage from a right lateral hip decubitus ulcer. In the emergency room, the patient has labs showing a white count of 18.1. His BUN and creatinine were elevated at 61 and 1.67. He had a fever to 100.8. He had an elevated troponin to 0.04, C-reactive protein at 204.60. Mr. Travis was treated with broad spectrum antibiotics and was evaluated by General Surgery, as well as Dr. Acuna from Infectious Disease services. The patient had a soft tissue ultrasound on 02/23/2018 of the right hip ulcer which showed no localized fluid collection to suggest an abscess. Mr. Acuna recommended Zosyn for antibiotic coverage and the patient went on for debridement with Dr. Bonner on 02/23/2018. This was repeated on 02/24/2018. Mr. Travis had a pelvis CT to evaluate the significant decubitus ulcer on 2017 which showed "no CT evidence of enterocutaneous fistula or perforation of the gastrointestinal tract; soft tissue wound overlying the right greater trochanter abuts the right greater trochanter, but the cortex appears to be intact." Mr. Travis's hospital course and recovery has been complicated by the fact that he has been minimally participatory at times with his treatment plan and has refused to eat. Per the report, the patient has lost 40 pounds during the course of this illness, over the past few months. He has severe contractions in his bilateral lower extremities as he has severe pain in his lower extremities and does not want to ambulate or move. Because of his refusal to eat and history of dementia, he was seen in consultation by Psychiatric services who recommended that the patient might benefit from a small dose of Zyprexa and to increase his Mirtazapine to 15 mg. He is also continued on his Seroquel per routine. In general, with this the patient's mood seems to have stabilized. He continues to not want to eat, but is very appropriate in interactions and coherent in his thought process. Mr. Travis was also seen in consultation by Dr. Mckinney on 03/02/2018 from Gastroenterology out of concern for loose stools and incontinence that may have been worsening his right hip ulceration due to contamination. Dr. Mckinney recommended nonspecific attempts to thicken up the stool, including the use of Fibercon and one Imodium a day which we have done. Mr. Travis's overall prognosis is poor. He is very malnourished and unable to ambulate. He refuses to eat. He was also seen in consultation by Palliative Care services who agree that his prognosis is poor and he would be an appropriate candidate for hospice. Lengthy discussions were undertaken between the patient, Palliative Care, the Hospitalists team, and the patient's family and there was agreement that the patient would be appropriate to go to hospice. There is still some hope that perhaps the patient can recover if he is able to heal his decubitus ulcer, but certainly this is impaired by his poor nutritional status. Mr. Travis will be discharged today to [facility] with hospice services. He will be continuing his two week course of Amoxicillin and treatment of his decubitus ulcer. He will have wet to dry dressings to his decubitus ulcer daily. If the patient and the family are interested, the patient can come to the [facility] on a weekly basis for continued management of the wound as wanted. Mr. Travis is medically stable for discharge to [facility]. DISPOSITION: To [facility]. DIET: Regular. ACTIVITY: As tolerated. The patient should be turned in position q.2 hours. FOLLOW-UP PLANS: 1. Please follow-up with the [facility] providers per routine. 2. Please follow-up with [facility] at [facility] as desired. Approximately 75 minutes were spent in the discharge of this patient, more than half that time was spent with the patient at the bedside reviewing the events leading up to this hospitalization, performing the physical examination, and reviewing the plan of care. ESTEFANY RAMSAY NP [id number]/[facility] #: [id number] Addendum: Prior to discharge, patient's daughter, who is the health care proxy , indicated that she did not want to pursue hospice services and did not want the patient discharged to [facility]. This plan was reviewed with the patient , who has become increasingly lucid and appropriate during conversation over the past 24-48 hours. He indicates now that he would like to "do everything" and that he "wants to stick around." I discussed with him the poor prognosis if he is not able to take in adequate nutrition. He indicates that he would like to re-double efforts to maximize his nutrition and would consider a PEG tube if needed. He confirms also that his daughter, Chiquis, would be his health care proxy. His daughter also provided a signed HCP form which was left on the chart. Plan to hold discharge at this point. Will re-engage with surgery, ID, dieticians, and possibly gastroenterology tomorrow to determine optimal treatment course. MAHENDRA
[2018-03-09] MEDS: Mirtazapine TAB* 15 MG PO SCH (19:48)
[2018-03-09] MEDS: OLANzapine TAB* 2.5 MG PO SCH (19:48)
[2018-03-10] MEDS: Morphine INJ* 2 MG/ML 1 ML CARPUJECT IV PRN ×2 (02:28→14:33)
[2018-03-10] MEDS: NS 0.9% 1000 ML* 1,000 ML IV SCH ×2 (02:29→14:24)
[2018-03-10] MEDS: Heparin VIAL(*) 5000 UNITS/ML VIAL (FIVE THOUSAND) SUBCUT SCH ×3 (05:37→21:30)
[2018-03-10 06:10] LABS: ABS Basophils 0.2 10^3/ul (0-0.2); ABS Eosinophils 0.2 10^3/ul (0-0.6); ABS Lymphocytes 2.3 10^3/ul (1.0-4.8); ABS Monocytes 0.7 10^3/ul (0-0.8); ABS Neutrophils 5.1 10^3/ul (1.5-7.7); ABS Nucleated RBC 0 10^3/ul; Eosinophil % 2.7 % (0-6); Hematocrit 22 % (42-52); Hemoglobin 7.5 g/dl (14.0-18.0); Lymphocyte % 27.4 % (25-47); Mean Corpuscular HGB Conc 35 g/dl (31-36); Mean Corpuscular Hemoglobin 28 pg (27-31); Mean Corpuscular Volume 81 fL (80-94); Nucleated Red Blood Cells % 0.1; Platelet Count 475 10^3/ul (150-450); Red Blood Count 2.68 10^6/ul (4.0-5.4); Red Cell Distribution Width 18 % (10.5-15); White Blood Count 8.5 10^3/ul (3.5-10.8)
[2018-03-10 06:17] LABS: EGFR Non-African American 118.3 (>60)
[2018-03-10] MEDS: Aspirin EC TAB* 81 MG TAB.EC PO SCH (10:40)
[2018-03-10] MEDS: oxyCODONE SR TAB(*) 20 MG TAB.SR PO SCH ×2 (10:40→21:29)
[2018-03-10] MEDS: Sertraline* 25 MG TAB PO SCH (10:41)
[2018-03-10] MEDS: Lisinopril TAB* 5 MG PO SCH (10:41)
[2018-03-10] MEDS: amLODIPine TAB* 5 MG PO SCH (10:42)
[2018-03-10] MEDS: Calcium Polycarbophil TAB* 625 MG PO SCH ×2 (10:42→21:29)
[2018-03-10] MEDS: Metoprolol Tartrate TAB* 25 MG PO SCH ×2 (10:43→21:29)
[2018-03-10] MEDS: Loperamide CAP* 2 MG PO SCH (10:43)
[2018-03-10] MEDS: Lactobacillus Acidophilu (GG)* 1 CAP CAP PO SCH ×2 (10:43→21:29)
[2018-03-10] MEDS: Thiamine TAB* 100 MG TAB PO SCH (10:44)
--- NOTE | 2018-03-10 17:29 | PN ---
Subjective Date of Service: 03/10/18 Interval History: Mr. Travis continue to improve. He has no c/o today. He is trying to increase his PO intake. Denies any leg pain, fever or chills. He was scheduled for discharge today, daughter had some questions regarding feeding tube. Initially, she requested PEG tube insertion, but after long discussion with her, we will try PO intake with supplemental boost and reassess in few weeks his nutritional status. Family History: Unchanged from Admission Social History: Unchanged from Admission Past Medical History: Unchanged from Admission Objective Active Medications: Acetaminophen (Tylenol Tab*) 650 mg PO Q6H PRN PRN Reason: FEVER/PAIN Amlodipine Besylate (Norvasc Tab*) 10 mg PO DAILY [facility] Last Admin: 03/10/18 10:42 Dose: 10 mg Aspirin (Aspirin Ec Low Dose*) 81 mg PO DAILY [facility] Last Admin: 03/10/18 10:40 Dose: 81 mg Bisacodyl (Dulcolax Supp*) 10 mg [place] DAILY PRN PRN Reason: CONSTIPATION Last Admin: 03/08/18 11:11 Dose: 10 mg Calcium Polycarbophil (Fibercon Tab*) 625 mg PO BID [facility] Last Admin: 03/10/18 10:42 Dose: 625 mg Heparin Sodium (Porcine) (Heparin Vial(*)) 5,000 units SUBCUT Q8HR [facility] Last Admin: 03/10/18 14:33 Dose: 5,000 units Hydralazine HCl (Apresoline Iv*) 5 mg IV SLOW PU Q6H PRN PRN Reason: BLOOD PRESSURE Last Admin: 03/03/18 03:27 Dose: 5 mg Sodium Chloride (Ns 0.9% 1000 Ml*) 1,000 mls @ 100 mls/hr IV PER RATE [facility] Last Admin: 03/10/18 14:24 Dose: 100 mls/hr Lactobacillus Rhamnosus (Culturelle*) 1 cap PO BID [facility] Last Admin: 03/10/18 10:43 Dose: 1 cap Lisinopril (Prinivil Tab*) 5 mg PO DAILY [facility] Last Admin: 03/10/18 10:41 Dose: 5 mg Loperamide HCl (Imodium Cap*) 2 mg PO QAM [facility] Last Admin: 03/10/18 10:43 Dose: 2 mg Metoprolol Tartrate (Lopressor Tab*) 50 mg PO BID [facility] Last Admin: 03/10/18 10:43 Dose: 50 mg Mirtazapine (Remeron Tab*) 15 mg PO BEDTIME [facility] Last Admin: 03/09/18 19:48 Dose: 15 mg Morphine Sulfate (Morphine Inj (Syringe)*) 2 mg IV Q4H PRN PRN Reason: PAIN - SEVERE Last Admin: 03/10/18 14:33 Dose: 2 mg Olanzapine (Zyprexa Tab*) 2.5 mg PO BEDTIME [facility] Last Admin: 03/09/18 19:48 Dose: 2.5 mg Oxycodone HCl (Oxycontin(*)) 20 mg PO Q12HR [facility] Last Admin: 03/10/18 10:40 Dose: 20 mg Oxycodone HCl (Roxycodone Tab*) 10 mg PO Q4H PRN PRN Reason: PAIN Last Admin: 03/07/18 17:57 Dose: 10 mg Polyethylene Glycol/Electrolytes (Miralax*) 17 gm PO DAILY PRN PRN Reason: CONSTIPATION Last Admin: 03/08/18 11:11 Dose: 17 gm Sertraline HCl (Zoloft*) 25 mg PO DAILY [facility] Last Admin: 03/10/18 10:41 Dose: 25 mg Thiamine HCl (Vitamin B-1 Tab*) 100 mg PO DAILY [facility] Last Admin: 03/10/18 10:44 Dose: 100 mg Vital Signs - 8 hr 03/10/18 03/10/18 03/10/18 10:40 10:43 13:00 Temperature Pulse Rate Respiratory 20 20 18 Rate Blood Pressure (mmHg) O2 Sat by Pulse Oximetry 03/10/18 03/10/18 14:33 15:53 Temperature 97.7 F Pulse Rate 96 Respiratory 20 24 Rate Blood Pressure 159/86 (mmHg) O2 Sat by Pulse 100 Oximetry Oxygen Devices in Use Now: None Appearance: Awake, alert and oriented. Sitting up in bed, ready to eat dinner. Appears comfortable and in NAD. Eyes: No Scleral Icterus, PERRLA Ears/Nose/Mouth/Throat: Mucous Membranes Moist Neck: NL Appearance and Movements; NL JVP, Trachea Midline Respiratory: Symmetrical Chest Expansion and Respiratory Effort, Clear to Auscultation Cardiovascular: NL Sounds; No Murmurs; No JVD, RRR Abdominal: NL Sounds; No Tenderness; No Distention Extremities: - - Right lower extrimity exam unchanged. Wound appear sclean and granulating. Dressing changed by nursing staff. Nutrition: Taking PO's Result Diagrams: 03/10/18 05:44 03/10/18 05:44 Additional Lab and Data: . Microbiology and Other Data: . Assess/Plan/Problems-Billing Assessment: Mr. Travis is a 67 yo M who has a h/o CAD, HTN, HLD, chronic hip/leg pain who presented to the ER with fever and increased drainage from a R lateral hip decubitus ulcer and was found to be severely septic secondary to the infected decubitus. - Patient Problems (1) Decubitus ulcer Current Visit: Yes Comment: - Infected decubitus of right lateral thigh/hip, s/p I&D then debridement. - Continue local wound care and amoxicillin x 2 weeks. - Unlikely to heal wound due to poor nutritional status. - Surgery following and considering placement of a wound vac. (2) Severe sepsis Current Visit: Yes (3) Diarrhea Current Visit: Yes Comment: - Resolved, more formed stools, no BM since yesterday. (4) HTN (hypertension) Current Visit: Yes Comment: - BP well controlled. - Increased amlodipine to 10mg daily 02/26. Increased metoprolol to 50 mg bid 03/02/18. Started lisinopril 5 mg daily 03/03. (5) Psychiatric diagnosis Current Visit: Yes Comment: - Psychiatry consult appreciated. - Started olanzapine and increased dose of mirtazapine 03/02. (6) Severe protein-calorie malnutrition Current Visit: Yes Comment: - Prealbulin <3 - Patient has poor appetite. Continue to offer PO intake. - Patient does not want artificial nutrition with NG or PEG tube. (7) Dementia Current Visit: No Comment: - At baseline. (8) Osteoarthritis of hips, bilateral Current Visit: No Comment: Start APAP 650 mg tid. Pt refused PT. Will try again. (9) DNR (do not resuscitate) Current Visit: Yes Comment: (10) DVT prophylaxis Current Visit: Yes Comment: - SQ heparin Status and Disposition: Inpatient. Appreciate palliative care consult, patient and family in agreement in to pursue hospice care. Patient hopeful for a bed at [facility]. Daughter had multiple concerns, expressed desire for patient to have a feeding tube. Discussed with her risks and benefits involved. He starts to increase his PO intake, and I can see significant improvement in his mental and emotional status. I think we should postpone and arrangement for PEG tube and continue to encourage PO intake. Also discussed d/c plans with his sister, who agreed. To [facility] tomorrow AM.
[2018-03-10] MEDS: oxyCODONE TAB* 5 MG TAB PO PRN (17:35)
[2018-03-10] MEDS: Mirtazapine TAB* 15 MG PO SCH (21:29)
[2018-03-10] MEDS: OLANzapine TAB* 2.5 MG PO SCH (21:30)
[2018-03-11] MEDS: NS 0.9% 1000 ML* 1,000 ML IV SCH (00:34)
[2018-03-11] MEDS: Heparin VIAL(*) 5000 UNITS/ML VIAL (FIVE THOUSAND) SUBCUT SCH (06:24)
--- NOTE | 2018-03-11 09:11 | DCNOTE ---
This is an addendum to discharge summary dictated by Estefany Ramsay NP on 2017 Patient is medically stable and optimized for discharge His daughter, Chiquis, who has health care proxy had some concerns regarding his food intake. She initially requested feeding tube insertion; however, patient continued to increase PO intake on a daily basis. His physical exam was unchanged, wound on right hip continued to granulate. His medications list was reviewed, agree with initial discharge summary Patient and family agree to d/c plans to [facility] today. For further details, please refer to dictated D/C summary dated 03/09/2018
[2018-03-11 09:13] VITALS: BP 144/80
[2018-03-11] MEDS: Sertraline* 25 MG TAB PO SCH (09:59)
[2018-03-11] MEDS: Metoprolol Tartrate TAB* 25 MG PO SCH (09:59)
[2018-03-11] MEDS: Calcium Polycarbophil TAB* 625 MG PO SCH (10:00)
[2018-03-11] MEDS: Lisinopril TAB* 5 MG PO SCH (10:00)
[2018-03-11] MEDS: Aspirin EC TAB* 81 MG TAB.EC PO SCH (10:00)
[2018-03-11] MEDS: Loperamide CAP* 2 MG PO SCH (10:00)
[2018-03-11] MEDS: Lactobacillus Acidophilu (GG)* 1 CAP CAP PO SCH (10:00)
[2018-03-11] MEDS: amLODIPine TAB* 5 MG PO SCH (10:01)
[2018-03-11] MEDS: oxyCODONE SR TAB(*) 20 MG TAB.SR PO SCH (10:01)
[2018-03-11] MEDS: oxyCODONE TAB* 5 MG TAB PO PRN (10:01)
[2018-03-11] MEDS: Thiamine TAB* 100 MG TAB PO SCH (10:55)
== END 2018-03-11 10:45 | DRG 853 ==
LOC: ED 02:35 → MED 07:46 → ICU 08:40 → MED 02-24 12:34
PROVIDERS: ADMIT Hospitalist; ATTEND Internal Medicine
PROC: 0JBL0ZZ Excision of Right Upper Leg Subcutaneous Tissue and Fascia, Open Approach (ICD-10-PCS; 2018-02-23)
PROC: 0KBQ0ZZ Excision of Right Upper Leg Muscle, Open Approach (ICD-10-PCS; 2018-02-24)
PROC: 02HV33Z Insertion of Infusion Device into Superior Vena Cava, Percutaneous Approach (ICD-10-PCS; principal; 2018-03-01)
PROC: 3E0436Z Introduction of Nutritional Substance into Central Vein, Percutaneous Approach (ICD-10-PCS; 2018-03-01)
PROC: 02PYX3Z Removal of Infusion Device from Great Vessel, External Approach (ICD-10-PCS; 2018-03-06)
DX: A41.9 Sepsis, unspecified organism (principal); L89.214 Pressure ulcer of right hip, stage 4; E43 Unspecified severe protein-calorie malnutrition; M86.651 Other chronic osteomyelitis, right thigh; I25.10 Atherosclerotic heart disease of native coronary artery without angina pectoris; R65.20 Severe sepsis without septic shock; I10 Essential (primary) hypertension; E78.5 Hyperlipidemia, unspecified; G89.29 Other chronic pain; R73.03 Prediabetes; E87.6 Hypokalemia; D64.9 Anemia, unspecified; F32.9 Major depressive disorder, single episode, unspecified; K59.00 Constipation, unspecified; Z66 Do not resuscitate; F17.210 Nicotine dependence, cigarettes, uncomplicated; M16.0 Bilateral primary osteoarthritis of hip; F03.90 Unspecified dementia, unspecified severity, without behavioral disturbance, psychotic disturbance, mood disturbance, and anxiety; R19.7 Diarrhea, unspecified; F10.20 Alcohol dependence, uncomplicated; Y90.9 Presence of alcohol in blood, level not specified; M24.552 Contracture, left hip; M24.551 Contracture, right hip; M25.562 Pain in left knee; M25.561 Pain in right knee; Z68.1 Body mass index [BMI] 19.9 or less, adult; I25.2 Old myocardial infarction; Z74.01 Bed confinement status; Z79.82 Long term (current) use of aspirin
CPT/HCPCS: 36415; 72193; 74019; 80048; 80053; 81003; 82272; 82465; 83605; 83735; 84100; 84134; 84145; 84478; 84484; 85025; 85610; 86140; 86703; 86803; 87040; 87045; 87046; 87070; 87076; 87077; 87116; 87185; 87186; 87205; 87206; 87340; 87493; 87640; 87641; 87899; 99285; 99406; A9270-GY; C1751; G8987-GO-CM; G8988-GO-CM; G8989-GO-CM; J0360; J0690; J1644; J2270; J2543; J3010; J3370; J3480; Q9967

== ENCOUNTER 2018-04-06 20:07 | Inpatient (IN) | payer MEDICARE, MEDICAID ==
[2018-04-06] MEDS ORDERED: NS 0.9% 1000 ML*IV.FLUID IV ONE (20:13)
[2018-04-06] MEDS ORDERED: Vancomycin(*) 1,000 MG in NS 0.9% 250 ML* 250 ML IVPB ONE (20:14)
[2018-04-06] MEDS ORDERED: Piperacillin/Tazobac ADVAN(*) 3.375 GM in NS 0.9% 100 ML* 100 ML IVPB ONE (20:14)
[2018-04-06] MEDS ORDERED: Ibuprofen TAB* 600 MG PO ONE (20:15)
[2018-04-06] MEDS ORDERED: Acetaminophen TAB* 325 MG PO ONE (20:15)
[2018-04-06] MEDS ORDERED: Acetaminophen SUPP* 650 MG SUPP ONE (20:23)
[2018-04-06] MEDS ORDERED: Acetaminophen SUPP* 650 MG SUPP PR ONE (20:25)
[2018-04-06 20:33] LABS: Hematocrit 22 % (42-52); Hemoglobin 7.1 g/dl (14.0-18.0); Mean Corpuscular HGB Conc 33 g/dl (31-36); Mean Corpuscular Hemoglobin 26 pg (27-31); Mean Corpuscular Volume 79 fL (80-94); Platelet Count 264 10^3/ul (150-450); Red Blood Count 2.73 10^6/ul (4.0-5.4); Red Cell Distribution Width 18 % (10.5-15); White Blood Count 23.6 10^3/ul (3.5-10.8)
--- NOTE | 2018-04-06 20:42 | RAD ---
Indication: Fever. Altered mental status. Dark urine. Comparison: November 2017 Technique: Upright AP 2033 hours Report: Elevated lung volumes and patchy rarefaction of the mid to upper lung zone interstitial markings. No focal pulmonary lesion, compelling alveolar consolidation, pleural effusion, pneumothorax. The heart, pulmonary vasculature, and mediastinal contours are unremarkable. Negative for free air beneath the diaphragm. IMPRESSION: Stigmata of obstructive lung disease. No acute pulmonary or cardiac process evident.
[2018-04-06 20:45] LABS: INR 1.29 (0.77-1.02)
[2018-04-06] MEDS ORDERED: Acetaminophen SUPP* 650 MG SUPP PR PRN (21:59)
[2018-04-06] MEDS ORDERED: Ondansetron INJ* 2 MG/ML VIAL IV PRN (21:59)
[2018-04-06] MEDS ORDERED: LORazepam INJ* 2 MG/ML 1 ML VIAL IV PUSH PRN (21:59)
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
[2018-04-06 23:04] LABS: ABS Eosinophils 0.1 10^3/ul (0-0.6); ABS Lymphocytes 0.8 10^3/ul (1.0-4.8); ABS Monocytes 2.4 10^3/ul (0-0.8); ABS Neutrophils 96.2 10^3/ul (1.5-7.7)
[2018-04-06 23:05] LABS: ABS Basophils 0.5 10^3/ul (0-0.2); ABS Nucleated RBC 0 10^3/ul; Eosinophil % 0 % (0-6); Lymphocyte % 1 % (25-47); Nucleated Red Blood Cells % 0
[2018-04-07] MEDS ORDERED: Morphine INJ* 4 MG/ML 1 ML CARPUJECT IV ONE (00:49)
[2018-04-07] MEDS ORDERED: Morphine VIAL* 4 MG/ML VIAL (1 ml vial) IV ONE (01:00)
[2018-04-07 03:04] VITALS: BP 90/48
[2018-04-07] MEDS: Morphine VIAL* 4 MG/ML VIAL (1 ml vial) IV PRN ×3 (03:06→07:06)
--- NOTE | 2018-04-07 07:41 | HP ---
CC: Harjeet Christy.* HISTORY AND PHYSICAL: DATE OF ADMISSION: 04/06/18 PRIMARY CARE PROVIDER: Harjeet Christy. ATTENDING PHYSICIAN WHILE IN THE HOSPITAL: Rosa Elena Holley MD * (report dictated by Jorge Luis Nieves NP). CHIEF COMPLAINT: 1. Fever. 2. Fall. HISTORY OF PRESENTING ILLNESS: Mr. Travis is a 67-year-old male patient who came into the ED today after he was directed here from [facility] for fever, increased lethargy, stage 4 pressure ulcer to his right hip, hypotension, and tachypnea. He came into the ED today. He is really unable to give much history , but according to the nursing note he was just here about a month ago, was discharged to [facility] for antibiotic therapy for a stage 4 decubitus ulcer. He was treated with antibiotic course. He unfortunately though today was tachycardic. He had a fever. He had sustained a fall. He slipped out of bed. He came into the emergency department. He was noted to be hypotensive with systolics in the 60s despite 5 L of fluids. He was noted to be in a multisystem organ failure and because of these findings, we were asked to evaluate for admission. PAST MEDICAL HISTORY: Significant for: 1. Chronic hip pain. 2. Stage 4 pressure ulcer. 3. CAD. 4. ID. 5. Hypertension. 6. Hyperlipidemia. PAST SURGICAL HISTORY: He has had an I and D of his right hip. HOME MEDICATIONS: Include: 1. MiraLAX 17 g p.o. daily. 2. Lopressor 50 mg p.o. b.i.d. 3. FiberCon 625 mg p.o. b.i.d. 4. Tylenol 650 mg every 6 hours as needed. 5. Norvasc 10 mg p.o. daily. 6. Remeron 15 mg p.o. at bedtime. 7. Lisinopril 5 mg p.o. daily. 8. Lactobacillus 1 capsule p.o. b.i.d. 9. Thiamine 100 mg p.o. daily. 10. Aspirin 81 mg daily. 11. Vitamin C 500 mg p.o. daily. 12. Oxycodone 10 mg every 4 hours as needed. 13. Zoloft 25 mg p.o. daily. 14. Vitamin B12 1000 mcg IM weekly. 15. Ferrous sulfate 325 mg p.o. b.i.d. 16. Dulcolax suppository 10 mg p.r. daily as needed. 17. OxyContin 20 mg p.o. b.i.d. 18. Senna 2 tablets p.o. b.i.d. as needed. 19. Dakin's solution 1 application b.i.d. ALLERGIES TO MEDICATIONS: Include no known drug allergies. FAMILY HISTORY: According to old records, his father at the age of 87. SOCIAL HISTORY: The patient does not smoke, does not drink. Surrogate decision maker is the patient's daughter Chiquis. REVIEW OF SYSTEMS: Unable to be obtained from the patient. PHYSICAL EXAMINATION GENERAL: At this time, Mr. Travis is a 67-year-old male patient. He is acutely ill appearing on top of chronically ill appearing. He appears to be cachectic. He is sitting in the ER stretcher. He appears to be in moderate amount of stress. VITAL SIGNS: Blood pressure 65/48, pulse 89, respirations 26, O2 sat is 100%, temperature was 102.3 when he came in. HEENT: Head is atraumatic. Eyes: Sclerae are anicteric. Throat: Oral mucosa appears to be dry. No oropharyngeal erythema. NECK: Supple. LUNGS: Clear to auscultation. No wheezes, rales, or rhonchi. He is diminished throughout. HEART: Sounds S1, S2. Regular rate and rhythm. No murmurs, rubs, or gallops. ABDOMEN: Soft, flat, nontender. Bowel sounds are present. EXTREMITIES: Contracted lower extremities. NEUROLOGICAL: He will open his eyes to his name only. He is encephalopathic. He had no gross focal deficits. SKIN: He has stage 4 pressure ulcer to his right hip. DIAGNOSTIC STUDIES/LABORATORY DATA: WBC 23.6, RBC of 2.73, hemoglobin of 7.1, his hematocrit was 22, platelet count of 264. INR 1.29, PTT of 27. Sodium 135 , potassium 4.6, chloride 106, bicarb 21, BUN 55, creatinine 2.41, glucose was 88, lactate 2.7, calcium 8.9. Total bili 0.6, AST 67, ALT 43, alk phos 143. Troponin 0.04. CRP at 253. Albumin at 2.7. Chest x-ray obtained today which revealed stigmata of obstructive lung disease. No acute pulmonary or cardiac process evident. Old medical records were reviewed. ASSESSMENT AND PLAN: Mr. Travis is a 67-year-old male patient coming into the ER today with complaints of septic shock and multisystem organ failure. He will be admitted under inpatient status for: 1. Septic shock secondary to most likely to decubitus infection, possible urinary tract infection as there are reports that he did pull his catheter several days ago and he was having bleeding, so he may have introduced infection from trauma to the urethra. The patient now does appear to be in septic shock with multisystem organ failure. Despite 5 L of fluids, he is still in the 60s and 70s. I had a long discussion with the family. When he came in, he was tachycardic. He did, when I was talking with him, dip down on the 70s and 60s which was very concerning he was also noted to have agonal breathing. I explained to the family that without aggressive interventions and even with aggressive interventions, the patient most likely would not survive this ordeal give his underlying malnourished state and other comorbid medical problems. I did discuss this with my attending, who evaluated the patient as well and she was in agreement. After a long discussion with family, they opted for comfort care only, so I will place him on comfort. I will give him morphine for pain, Ativan for anxiety and put him on atropine drops. I explained that we would focus on comfort and hold antibiotics for now and suspend lab draws and also hold on vital signs. I explained that should the patient improve with interventions done in the emergency room that we could certainly re-evaluate our treatment. I will go ahead and continue with supportive care and get a palliative consult. 2. History of coronary artery disease, again comfort care now. 3. Hypertension and history of hyperlipidemia. He will be placed on comfort care. 4. Chronic hip pain, I did order morphine. 5. Acute kidney injury. Again, he will be on comfort care, I suspect this is probably secondary to the shock. 8. DVT prophylaxis: He will be on again comfort care. 9. Fluids, electrolytes and nutrition: If he does awake enough, he can eat. He can have regular diet. 9. Code status: He does have a DNR and DNI in place. TIME SPENT: Time spent on admission was 70 minutes, greater than half the time was spent [id number] with the patient obtaining my history and physical, other half time was spent going over the plan of care with the patient and implementing plan of care. I did discuss the plan of care with my attending, Dr. Holley; she is in agreement. JORGE LUIS NIEVES NP [id number]/[facility] #: [id number] MAHENDRA
[2018-04-07] MEDS: Morphine ORAL CONCENTRATE* 5 MG/0.25 ML ORAL.SYRIN SL PRN ×7 (10:23→20:43)
--- NOTE | 2018-04-07 11:02 | PN ---
Progress Note - Progress Note Date of Service: 04/07/18 Note: Time spent on discharge 40 minutes.
[2018-04-07] MEDS: Atropine 1% (ORAL/SL)* 15 ML BTL SL PRN ×3 (11:15→14:04)
--- NOTE | 2018-04-07 11:17 | TRS ---
DATE OF ADMISSION: 04/06/2018. DATE OF TRANSFER: 04/07/2018. HISTORY OF PRESENT ILLNESS: This 67-year-old man was transferred from [facility] because of fever and a fall. The history is detailed in the admission noted. He was hypotensive on admission. He was felt to be in septic shock due to his decubitus ulcer, possibly other factors as well. He was placed on comfort care. A hospice referral should be made. At the time of discharge, he was hyperventilating, most certainly due to metabolic acidosis. He seemed comfortable. FINAL DIAGNOSIS: Sepsis with moribund condition. DISCHARGE MEDICATIONS: 1. Morphine oral concentrate 5 mg sublingual every 30 minutes prn. 2. Atropine 2% two drops sublingual every 2 hours prn. 3. Lorazepam 1 mg one tablet sublingual every 3 hours prn. [id number]/[facility] #: [id number] MTDD
[2018-04-08] MEDS: Morphine ORAL CONCENTRATE* 5 MG/0.25 ML ORAL.SYRIN SL PRN ×9 (00:16→23:44)
[2018-04-08] MEDS: LORazepam TAB(*) 1 MG SL PRN ×2 (02:16→06:03)
--- NOTE | 2018-04-08 12:42 | PN ---
Subjective Date of Service: 04/08/18 Interval History: Patient not able to make his needs known. Objective Active Medications: Atropine Sulfate (Atropine 1% (Oral/Sl)*) 2 drop SL Q2H PRN PRN Reason: Terminal Secretions Last Admin: 04/07/18 14:04 Dose: 2 drp Lorazepam (Ativan Tab(*)) 1 mg SL Q3H PRN PRN Reason: ANXIETY Last Admin: 04/08/18 06:03 Dose: 1 mg Morphine Sulfate (Morphine Oral Concentrate*) 5 mg SL Q30M PRN PRN Reason: PAIN Last Admin: 04/08/18 12:33 Dose: 5 mg Morphine Sulfate (Morphine Oral Concentrate*) 10 mg SL Q30M PRN PRN Reason: PAIN - SEVERE Vital Signs - 8 hr 04/08/18 04/08/18 04/08/18 04:54 04:55 06:03 Respiratory 22 22 22 Rate 04/08/18 04/08/18 04/08/18 06:04 06:51 10:57 Respiratory 27 28 24 Rate 04/08/18 04/08/18 11:24 12:33 Respiratory 24 26 Rate Oxygen Devices in Use Now: None Appearance: Alert, partly up in bed. Daughter at bedside. Pt passive, not verbal. Eyes: No Scleral Icterus Extremities: No Edema, No Clubbing, Cyanosis, - Skin: No Rash or Ulcers, No Nodules or Sclerosis, - Neurological: - - Pt passive, not verbal. No tremor. Result Diagrams: 04/06/18 20:23 04/06/18 20:23 Assess/Plan/Problems-Billing Assessment: - Patient Problems (1) Severe sepsis Current Visit: No Status: Resolved Code(s): A41.9 - SEPSIS, UNSPECIFIED ORGANISM; R65.20 - SEVERE SEPSIS WITHOUT SEPTIC SHOCK SNOMED Code(s): 00483538 Comment: On admission the patient was severely septic from an infected decubutus ulcer. Aspiration or other cause of fever are possible. The family has chosen comfort care. Palliative care consult pending.
[2018-04-08] MEDS: Acetaminophen SUPP* 650 MG SUPP PR PRN (23:45)
[2018-04-09] MEDS: LORazepam TAB(*) 1 MG SL PRN ×3 (00:11→19:26)
[2018-04-09] MEDS: Morphine ORAL CONCENTRATE* 5 MG/0.25 ML ORAL.SYRIN SL PRN ×7 (01:41→21:42)
--- NOTE | 2018-04-09 07:22 | PN ---
Subjective Date of Service: 04/09/18 Interval History: Patient unresponsive to voice or light touch. Objective Active Medications: Acetaminophen (Tylenol Supp*) 650 mg HI Q6H PRN PRN Reason: FEVER/PAIN Last Admin: 04/08/18 23:45 Dose: 650 mg Atropine Sulfate (Atropine 1% (Oral/Sl)*) 2 drop SL Q2H PRN PRN Reason: Terminal Secretions Last Admin: 04/07/18 14:04 Dose: 2 drp Lorazepam (Ativan Tab(*)) 1 mg SL Q3H PRN PRN Reason: ANXIETY Last Admin: 04/09/18 02:53 Dose: 1 mg Morphine Sulfate (Morphine Oral Concentrate*) 5 mg SL Q30M PRN PRN Reason: PAIN Last Admin: 04/09/18 02:53 Dose: 5 mg Morphine Sulfate (Morphine Oral Concentrate*) 10 mg SL Q30M PRN PRN Reason: PAIN - SEVERE Last Admin: 04/08/18 19:59 Dose: 10 mg Vital Signs - 8 hr 04/08/18 04/08/18 04/09/18 23:44 23:52 00:11 Respiratory 36 36 34 Rate 04/09/18 04/09/18 04/09/18 00:29 01:41 02:03 Respiratory 34 40 38 Rate 04/09/18 04/09/18 04/09/18 02:04 02:34 02:53 Respiratory 36 40 32 Rate 04/09/18 04/09/18 04/09/18 03:47 04:40 05:42 Respiratory 38 28 28 Rate 04/09/18 04/09/18 04/09/18 05:44 05:45 06:50 Respiratory 24 24 26 Rate Oxygen Devices in Use Now: None Appearance: Partly up in bed. Unresponsive. Other than his tachypnea, he looks comfortable. Respiratory: - - Resp regular, deep, rapid Neurological: - - Unresponsive to voice or light touch. No tremor. Result Diagrams: 04/06/18 20:23 04/06/18 20:23 Assess/Plan/Problems-Billing Assessment: - Patient Problems (1) Severe sepsis Current Visit: No Status: Resolved Code(s): A41.9 - SEPSIS, UNSPECIFIED ORGANISM; R65.20 - SEVERE SEPSIS WITHOUT SEPTIC SHOCK SNOMED Code(s): 70114273 Comment: On admission the patient was severely septic from an infected decubutus ulcer. Aspiration or other cause of fever are possible. The family has chosen comfort care. Palliative care consult pending. Blood C&S gowing E. faecalis in 3/4 bottles. Sens pending. Continue comfort care plan.
--- NOTE | 2018-04-09 08:31 | CONSULT ---
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 I saw him in consultation at that time ( please refer to that note on 03/08/18 for complete presentation) and spoke to his daughter, sister and aunt for about an hour, and they all agreed to request comfort measures and hospice services upon return to [facility]. According to the discharge summary, at the last moment the patient's daughter Chiquis decided to pursue rehab instead of hospice at [facility], and apparently also considered a feeding tube at that time. The patient was then discharged to [facility] without additional palliative input to discuss the advisability of this measure with the patient and family. He promptly became septic again and is now readmitted in similar presentation to last time, and is likely to in the hospital, as his daughter is refusing to have him return to [facility]. Apparently his daughter, who is not here now, has been feeling guilty about "allowing her father to ." He is taking fluids. Medicaid is paying ALC (alternate level of care) for the patient to remain here. Lab Values: Laboratory Last Values WBC 23.6 10^3/ul (3.5-10.8) H 04/06/18 20:23 RBC 2.73 10^6/ul (4.0-5.4) L 04/06/18 20:23 Hgb 7.1 g/dl (14.0-18.0) L 04/06/18 20:23 Hct 22 % (42-52) L 04/06/18 20:23 MCV 79 fL (80-94) L 04/06/18 20:23 MCH 26 pg (27-31) L 04/06/18 20:23 MCHC 33 g/dl (31-36) 04/06/18 20:23 RDW 18 % (10.5-15) H 04/06/18 20:23 Plt Count 264 10^3/ul (150-450) 04/06/18 20:23 MPV 9.0 um3 (7.4-10.4) 04/06/18 20:23 Neut % (Auto) 84 % (38-83) H 04/06/18 20:23 Lymph % (Auto) 1 % (25-47) L 04/06/18 20:23 [place] % (Auto) 3 % (0-7) 04/06/18 20:23 Eos % (Auto) 0 % (0-6) 04/06/18 20:23 Baso % (Auto) 0 % (0-2) 04/06/18 20:23 Absolute Neuts (auto) 96.2 10^3/ul (1.5-7.7) H 04/06/18 20:23 Absolute Lymphs (auto) 0.8 10^3/ul (1.0-4.8) L 04/06/18 20:23 Absolute Monos (auto) 2.4 10^3/ul (0-0.8) H 04/06/18 20:23 Absolute Eos (auto) 0.1 10^3/ul (0-0.6) 04/06/18 20:23 Absolute Basos (auto) 0.5 10^3/ul (0-0.2) H 04/06/18 20:23 Absolute Nucleated RBC 0 10^3/ul 04/06/18 20: Nucleated RBC % 0 04/06/18 20:23 Large Platelets Present 04/06/18 20:23 INR (Anticoag Therapy) 1.29 (0.77-1.02) H 04/06/18 20:23 APTT 27.0 seconds (26.0-36.3) 04/06/18 20:23 Sodium 135 mmol/L (139-145) L 04/06/18 20:23 Potassium 4.6 mmol/L (3.5-5.0) 04/06/18 20:23 Chloride 101 mmol/L (101-111) 04/06/18 20:23 Carbon Dioxide 21 mmol/L (22-32) L 04/06/18 20:23 Anion Gap 13 mmol/L (2-11) H 04/06/18 20:23 BUN 55 mg/dL (6-24) H 04/06/18 20:23 Creatinine 2.41 mg/dL (0.67-1.17) H 04/06/18 20:23 Est GFR ( Amer) 34.7 (>60) 04/06/18 20:23 Est GFR (Non-Af Amer) 27.0 (>60) 04/06/18 20:23 BUN/Creatinine Ratio 22.8 (8-20) H 04/06/18 20:23 Glucose 88 mg/dL (70-100) 04/06/18 20:23 Lactic Acid 3.7 mmol/L (0.5-2.0) H* 04/06/18 20:23 Calcium 8.9 mg/dL (8.6-10.3) 04/06/18 20:23 Total Bilirubin 0.60 mg/dL (0.2-1.0) 04/06/18 20:23 AST 67 U/L (13-39) H 04/06/18 20:23 ALT 43 U/L (7-52) 04/06/18 20:23 Alkaline Phosphatase 142 U/L (34-104) H 04/06/18 20:23 Troponin I 0.04 ng/mL (<0.04) H* 04/06/18 20:23 C-Reactive Protein 253.90 mg/L (< 5.00) H 04/06/18 20:23 Total Protein 6.9 g/dL (6.4-8.9) 04/06/18 20:23 Albumin 2.7 g/dL (3.2-5.2) L 04/06/18 20:23 Globulin 4.2 g/dL (2-4) H 04/06/18 20:23 Albumin/Globulin Ratio 0.6 (1-3) L 04/06/18 20:23 - Objective Active Medications: Acetaminophen (Tylenol Supp*) 650 mg MT Q6H PRN PRN Reason: FEVER/PAIN Last Admin: 04/08/18 23:45 Dose: 650 mg Atropine Sulfate (Atropine 1% (Oral/Sl)*) 2 drop SL Q2H PRN PRN Reason: Terminal Secretions Last Admin: 04/07/18 14:04 Dose: 2 drp Lorazepam (Ativan Tab(*)) 1 mg SL Q3H PRN PRN Reason: ANXIETY Last Admin: 04/09/18 02:53 Dose: 1 mg Morphine Sulfate (Morphine Oral Concentrate*) 5 mg SL Q30M PRN PRN Reason: PAIN Last Admin: 04/09/18 07:37 Dose: 5 mg Morphine Sulfate (Morphine Oral Concentrate*) 10 mg SL Q30M PRN PRN Reason: PAIN - SEVERE Last Admin: 04/08/18 19:59 Dose: 10 mg Vital Signs: Vital Signs: Temp Pulse Resp BP Pulse Ox 98.2 F 92 21 90/48 99 04/07/18 02:35 04/07/18 02:35 04/09/18 08:00 04/07/18 02:35 04/07/18 20:00 Intake and Output: Intake & Output 04/07/18 04/08/18 04/09/18 04/10/18 06:59 06:59 06:59 06:59 Intake Total 960 480 Output Total 1750 2750 Balance -790 -2270 Intake: Oral 960 480 Output: [place] 1750 2750 Other: # Bowel Movements 0 0 ADLs: Meal Record Start: 04/06/18 22: 35 Freq: DAILY@0900,1400,1800 Status: Active Protocol: Document 04/07/18 18:00 [id number] (Rec: 04/07/18 22:16 [id number] MED-C13) Document 04/08/18 09:00 [id number] (Rec: 04/08/18 14:15 [id number] MED-C09) Document 04/08/18 14:00 [id number] (Rec: 04/08/18 14:15 [id number] MED-C09) Document 04/08/18 18:00 [id number] (Rec: 04/08/18 22:20 [id number] MED-C05) Intake and Output Start: 04/06/18 22: 35 Freq: DAILY@0600,1400,2200 Status: Active Protocol: Document 04/07/18 04:53 [id number] (Rec: 04/07/18 04:53 [id number] MED-C11) Document 04/07/18 22:00 [id number] (Rec: 04/07/18 22:35 [id number] MED-C13) Document 04/08/18 00:32 [id number] (Rec: 04/08/18 00:32 [id number] MED-C11) Document 04/08/18 06:00 [id number] (Rec: 04/08/18 06:41 [id number] MED-C11) Document 04/08/18 14:00 [id number] (Rec: 04/08/18 14:16 [id number] MED-C09) Document 04/08/18 22:00 [id number] (Rec: 04/08/18 22:22 [id number] MED-C05) Document 04/09/18 05:48 [id number] (Rec: 04/09/18 05:49 [id number] MED-C09) General Impression: Cachectic, contracted man lying in bed, unresponsive. Head: Symmetrical Eyes: No Scleral Icterus Neck: Trachea Midline Cardiovascular: RRR Respiratory: Symmetrical Chest Expansion and Respiratory Effort Extremities: No Edema, No Clubbing, Cyanosis, - Neurological: - - Unresponsive to voice or light touch. No tremor. Other Findings: Large stage 4 decubitus on hip - Assessment Assessment: This patient, in my opinion, has no rehabilitation potential. I would advocate for comfort care, and feel that if he had returned to [facility] after his last admission with comfort measures and the additional layer of care provided by hospice services, he would have had a much easier and comfortable course leading to his demise. At this point, I would suggest trying to effect a transfer to a SNF with hospice services for end-of-life care. The patient does not qualify for GIP inpatient hospice care. He is acidotic and has had blood cultures positive for enterococcus faecalis, so is likely to survive no more than a week or two before succumbing to sepsis, but he has been taking fluids rather well (960 cc in prior 24 hours) so may continue to survive for that time. Apparently the patient's daughter is refusing to have the patient sent to [facility] or [facility], which limits options, and I suspect the patient will in the hospital. - Plan Consult Plan (MU): Palliative - Time On Unit Date of Evaluation: 04/09/18 Hospice Consult Time in: 08:00 Hospice Consult Time Out: 09:00 Hospice Consult Time Total: 60 > 50% of Time Spend In Counseling or Coordinating Care: No
[2018-04-10] MEDS: Morphine ORAL CONCENTRATE* 5 MG/0.25 ML ORAL.SYRIN SL PRN ×12 (01:25→12:28)
[2018-04-10] MEDS: LORazepam TAB(*) 1 MG SL PRN ×3 (03:02→09:03)
--- NOTE | 2018-04-10 08:01 | PN ---
Subjective Date of Service: 04/10/18 Interval History: RN reports pain is uncontrolled this morning. He moans in pain despite getting it every 30 minutes and his respiratory rate is elevated. We evaluated Mr. Travis together. He is unable to voice his needs but moans to all questions and touch. Objective Active Medications: Acetaminophen (Tylenol Supp*) 650 mg MO Q6H PRN PRN Reason: FEVER/PAIN Last Admin: 04/08/18 23:45 Dose: 650 mg Atropine Sulfate (Atropine 1% (Oral/Sl)*) 2 drop SL Q2H PRN PRN Reason: Terminal Secretions Last Admin: 04/07/18 14:04 Dose: 2 drp Lorazepam (Ativan Tab(*)) 1 mg SL Q3H PRN PRN Reason: ANXIETY Last Admin: 04/10/18 06:08 Dose: 1 mg Morphine Sulfate (Morphine Oral Concentrate*) 15 mg SL Q30M PRN PRN Reason: PAIN - SEVERE Vital Signs - 8 hr 04/10/18 04/10/18 04/10/18 01:25 03:02 05:23 Respiratory 32 25 22 Rate 04/10/18 04/10/18 04/10/18 05:24 05:25 06:03 Respiratory 23 23 32 Rate 04/10/18 04/10/18 04/10/18 06:08 07:18 07:53 Respiratory 30 37 36 Rate Oxygen Devices in Use Now: None Appearance: thin, ill appearing man moaning frequently Eyes: - - occasionally opens eyes spontaneously Neck: NL Appearance and Movements; NL JVP Respiratory: - - tachypneic Abdominal: - - scaphoid, nontender Extremities: No Edema, - - legs are curled up in position Skin: - - right hip decubitus ulcer approx 5 cm Result Diagrams: 04/06/18 20:23 04/06/18 20:23 Assess/Plan/Problems-Billing Assessment: - Patient Problems (1) End of life care Current Visit: Yes Status: Acute Code(s): Z51.5 - ENCOUNTER FOR PALLIATIVE CARE SNOMED Code(s): 380949501 Comment: Due to severe sepsis and multisystem organ failure. Pain is poorly controlled today as evidenced by increased moaning and increased respiratory rate. Increase PO morphine now. Continue ativan. Will use morphine infusion if po morphine is inadequate.
[2018-04-10] MEDS: Acetaminophen SUPP* 650 MG SUPP PR PRN (11:25)
[2018-04-10] MEDS ORDERED: HYDROmorphone PCA* 20 MG/20 ML PCA.SYRING PCA SCH (13:00)
[2018-04-11] MEDS ORDERED: Morphine INJ* 10 MG/ML 1 ML CARPUJECT IV ONE (00:11)
[2018-04-11] MEDS ORDERED: Morphine INJ* 10 MG/ML 1 ML CARPUJECT ONE (00:16)
[2018-04-11] MEDS: Atropine 1% (ORAL/SL)* 15 ML BTL SL PRN (02:54)
[2018-04-11] MEDS: LORazepam TAB(*) 1 MG SL PRN (03:02)
[2018-04-11] MEDS: Morphine ORAL CONCENTRATE* 5 MG/0.25 ML ORAL.SYRIN SL PRN (03:02)
[2018-04-11] MEDS ORDERED: HYDROmorphone INJ* 2 MG/ML CARPUJECT SYRINGE IV ONE (04:23)
[2018-04-11] MEDS ORDERED: HYDROmorphone PCA* 20 MG/20 ML PCA.SYRING PCA SCH (04:23)
[2018-04-11] MEDS ORDERED: HYDROmorphone INJ* 2 MG/ML CARPUJECT SYRINGE ONE (04:27)
--- NOTE | 2018-04-14 21:54 | DS ---
Date of Admission: 04/06/2018 Date of Discharge: 04/11/2018 Discharge Diagnoses severe sepsis w/ shock stage 4 hip decubitus HPI Mr. Travis is a 67-year-old male patient who came into the ED today after he was directed here from [facility] for fever, increased lethargy, stage 4 pressure ulcer to his right hip, hypotension, and tachypnea. He came into the ED today. He is really unable to give much history, but according to the nursing note he was just here about a month ago, was discharged to [facility] for antibiotic therapy for a stage 4 decubitus ulcer. He was treated with antibiotic course. He unfortunately though today was tachycardic. He had a fever. He had sustained a fall. He slipped out of bed. He came into the emergency department. He was noted to be hypotensive with systolics in the 60s despite 5 L of fluids. He was noted to be in a multisystem organ failure and because of these findings, we were asked to evaluate for admission. Hospital Course Mr Travis was admitted with the above diagnoses and felt not to possess the reserve to survive. Family opted for comfort-only care and he was able to be maintained reasonably comfortably to at 0605 04/11/2018. Discharge Exam absent cardiac sounds absent peripheral pulses absent breath sounds Time for Discharge: <30min
== END 2018-04-11 06:05 | disposition expired | DRG 871 ==
LOC: ED 20:07 → INTOOBSV 21:58 → UNDOADMIN 21:58 → MED 21:58 → OBSVTOIN 04-07 14:00
PROVIDERS: ADMIT Pediatrics; ATTEND Hospitalist
DX: A41.81 Sepsis due to Enterococcus (principal); L89.214 Pressure ulcer of right hip, stage 4; R65.21 Severe sepsis with septic shock; J96.00 Acute respiratory failure, unspecified whether with hypoxia or hypercapnia; N17.9 Acute kidney failure, unspecified; I25.10 Atherosclerotic heart disease of native coronary artery without angina pectoris; I11.9 Hypertensive heart disease without heart failure; E78.5 Hyperlipidemia, unspecified; M25.559 Pain in unspecified hip; Z66 Do not resuscitate; Z51.5 Encounter for palliative care; I25.2 Old myocardial infarction; Z79.1 Long term (current) use of non-steroidal anti-inflammatories (NSAID); Z79.82 Long term (current) use of aspirin; Z79.891 Long term (current) use of opiate analgesic; Z79.899 Other long term (current) drug therapy
CPT/HCPCS: 36415; 71045; 80053; 83605; 84484; 85025; 85610; 85730; 86140; 87040; 87070; 87077; 87102; 87116; 87186; 87205; 87206; 99285; A9270-GY; J1170; J2270; J2543; J3370